=== PATIENT | female | born 1940 | race Caucasian/White ===

== ENCOUNTER 2020-07-01 07:37 | Outpatient (REF) | payer MEDICARE, SELFPAY ==
[2020-07-01 08:20] LABS: Hematocrit 39.2 % (37-47); Hemoglobin 12.6 g/dl (12.0-16.0); Mean Corpuscular HGB Conc 32.1 g/dl (31.0-35.0); Mean Corpuscular Hemoglobin 29.2 pg (27.0-33.0); Mean Corpuscular Volume 90.7 fL (80-98); Mean Platelet Volume 11.9 fL (9.4-12.3); Platelet Count 161 X10*3/uL (160-400); Red Blood Count 4.32 X10*6/uL (4.20-5.50); Red Cell Distribution Width 13.3 % (11.0-16.0); White Blood Count 8.1 X10*3/uL (4.8-10.8)
[2020-07-01 08:42] LABS: Alanine Aminotransferase 27 U/L (0-31); Albumin Level 4.1 g/dL (3.5-5.0); Alkaline Phosphatase 50 U/L (39-117); Anion Gap 10 (12-20); Aspartate Amino Transferase 31 U/L (5-31); Bilirubin Total 0.7 mg/dL (0.0-1.0); Blood Urea Nitrogen 11 mg/dL (9-16); Calcium 9.5 mg/dL (8.4-10.2); Carbon Dioxide 29 mmol/L (22-29); Chloride 102 mmol/L (96-108); Cholesterol 156 mg/dL; Estimated Glomerular Filt Rate > 60; Glucose Fasting 105 mg/dL (60-99); HDL Cholesterol 71 mg/dL; LDL Cholesterol Calculated 73 mg/dl; Potassium 4.4 mmol/L (3.3-5.1); Sodium 137 mmol/L (135-145); Total Protein 6.9 g/dL (6.5-8.0); Triglycerides 60 mg/dL
[2020-07-01 09:07] LABS: Vitamin D 25-OH Total 63.6 ng/mL (>30)
== END 2020-07-01 07:38 | disposition home or self-care (01) ==
LOC: HO.LAB 07:37
PROVIDERS: PCP Internal Medicine; Visit Provider Internal Medicine
DX: Z00.00 Encounter for general adult medical examination without abnormal findings (principal); M81.0 Age-related osteoporosis without current pathological fracture; I10 Essential (primary) hypertension; E78.00 Pure hypercholesterolemia, unspecified
CPT/HCPCS: 36415; 80053; 80061; 82306; 85027

== ENCOUNTER 2020-08-12 12:41 | Emergency (ER) | payer MEDICARE, SELFPAY ==
--- NOTE | ~2020-08-12 | XR_ITS ---
EXAMINATION: XR CHEST CLINICAL INFORMATION: Palpitations, chest pressure COMPARISON: Radiographs right shoulder 07/18/2019 TECHNIQUE: Portable upright AP view of the chest was obtained. FINDINGS: The lungs are clear. There is no pneumothorax, airspace consolidation, or effusion. The vascularity is normal. The heart is normal in size. The hilar and mediastinal contours are unremarkable. There is no acute bony abnormality. Old posttraumatic changes again seen right shoulder. XR/XR chest 1V IMPRESSION: No acute intrathoracic disease.
[2020-08-12 12:46] VITALS: BP 187/73; PULSE 80; RESP 18; TEMP 36.5; O2SAT 97; BMI 23.1
--- NOTE | 2020-08-12 12:49 | ECG_ITS ---
Test Reason : IRREG HEART RATE Blood Pressure : / mmHG Vent. Rate : 070 BPM Atrial Rate : 070 BPM P-R Int : 160 ms QRS Dur : 096 ms QT Int : 406 ms P-R-T Axes : 076 049 075 degrees QTc Int : 438 ms Normal sinus rhythm Left ventricular hypertrophy with repolarization abnormality Cannot rule out Septal infarct , age undetermined Abnormal ECG No previous ECGs available Referred By: Generic ED Physician Electronically Signed By:RODY CENTENO MD
[2020-08-12 15:02] VITALS: BP 152/72; PULSE 66; RESP 16; O2SAT 98
[2020-08-12 15:13] VITALS: BP 147/64; BP 152/71; BP 155/70; PULSE 65; PULSE 66; PULSE 68
[2020-08-12 15:15] LABS: MANUAL DIFF FLAG NO
[2020-08-12 15:16] LABS: Basophils Absolute Auto 0.1 X10*3/uL (0.0-0.2); Basophils Percent Auto 0.5 % (0-2); Eosinophils Absolute Auto 0.2 X10*3/uL (0.0-0.4); Eosinophils Percent Auto 2.1 % (0-4); Hematocrit 41.5 % (37-47); Hemoglobin 13.1 g/dl (12.0-16.0); Imm Gran Abs Auto 0.04 X10*3/uL (0.00-0.03); Imm Gran Pct Auto 0.4 % (0.0-0.4); Lymphocytes Absolute Auto 1.4 X10*3/uL (1.2-4.9); Lymphocytes Percent Auto 13.8 % (20-40); Mean Corpuscular HGB Conc 31.6 g/dl (31.0-35.0); Mean Corpuscular Hemoglobin 29.6 pg (27.0-33.0); Mean Corpuscular Volume 93.7 fL (80-98); Mean Platelet Volume 11.8 fL (9.4-12.3); Monocytes Absolute Auto 0.8 X10*3/uL (0.1-1.2); Monocytes Percent Auto 7.4 % (2-11); Neutrophils Absolute Auto 7.9 X10*3/uL (2.0-8.3); Neutrophils Percent Auto 75.8 % (45-73); Platelet Count 162 X10*3/uL (160-400); Red Blood Count 4.43 X10*6/uL (4.20-5.50); Red Cell Distribution Width 13.2 % (11.0-16.0); White Blood Count 10.5 X10*3/uL (4.8-10.8)
--- NOTE | 2020-08-12 15:18 | ED_ITS ---
HPI - Arrhythmia/Palpitations General Chief Complaint: Arrhythmia/Palpitations Stated Complaint: palpitations Time Seen by Provider: 08/12/20 14:20 Source: patient Mode of arrival: ambulatory History of Present Illness HPI narrative: 80-year-old female with a past medical history of asthma, HTN, HLD, osteoporosis, presenting to the ED complaining of intermittent palpitations, chest tightness, and exertional SOB x1 week. Reports symptoms worse on exertion with mild associated lightheadedness. Denies fever, chills, cough, abdominal pain, nausea/vomiting, LE edema complaint: rapid heart beat and palpitations Related Data Previous Rx's Medication Instructions Recorded fluticasone 250 mcg-salmeterol 50 1 inh INHALATION BID #60 ea 03/01/20 mcg/dose blistr powdr for inhalation hydrochlorothiazide 12.5 mg tablet 12.5 mg PO DAILY #90 tab 03/01/20 atorvastatin 20 mg tablet 20 mg PO DAILY #90 tab 04/30/20 denosumab 60 mg/mL subcutaneous 60 mg SUBCUT [id number] #1 ml 07/02/20 syringe triamcinolone acetonide 0.1 % 1 appl TOPICAL BID #80 g 07/02/20 topical cream Allergies Allergy/AdvReac Type Severity Reaction Status Date / Time cat dander [CATS] Allergy Severe DIFFICULTY Unverified 01/04/20 15:15 BREATHING dogs and cats Allergy Unknown Uncoded 07/21/19 00:00 dogs, cats Allergy Unknown Uncoded 09/21/19 00:00 gluten Allergy Unknown Uncoded 09/21/19 00:00 Review of Systems Review of Systems: Constitutional: No Fever, No Chills Cardiovascular: +chest tightness Pain, No SOB, + Dyspnea on Exertion, No Orthopnea, No Edema, + Palpitations Respiratory: No Cough, No Sputum Gastrointestinal: No Nausea, No Vomiting, No Diarrhea, No Abdominal pain Genitourinary: No Dysuria, No Urinary Frequency, No Hematuria Musculoskeletal: No joint pain, No Myalgias, No Joint Swelling Skin: No Skin Lesions, No rash Neuro: No Weakness, No Numbness, No Paresthesias, + Lightheadedness, No Headache Yes all other systems are reviewed and are negative [facility] Past Medical History Attestation statement: The following information was validated with the patient. Medical History (Updated 08/12/20 @ 16:12 by FABRICIO Mariano) Annual physical exam Asthma Celiac sprue HTN (hypertension) Hyperlipidemia Osteoporosis Prolapse of female pelvic organs Surgical History H/O colonoscopy Family History Family History (Updated 07/02/20 @ 10:13 by Anni Martinez CMA) Father CVD (cardiovascular disease) Mother Cancer Social History Social History (Updated 07/02/20 @ 10:12 by Anni Martinez CMA) Alcohol intake: current Alcohol intake frequency: holidays/special occasions only Smoking Status: Former smoker Advance Directives: No Advance Directives Information Provided: Yes Physical Exam Vital Signs: Vital Signs: Last Vital Signs Temp 97.7 F 08/12/20 12:46 Pulse 68 08/12/20 15:13 Resp 16 08/12/20 15:02 BP 155/70 H 08/12/20 15:13 Pulse Ox 98 08/12/20 15:02 Body Mass Index 23.1 Const: General: cooperative, healthy appearing, comfortable, no acute distress and well developed Orientation/consciousness: patient oriented x3 Limitations: no limitations HENMT: Head: Yes normal to inspection Ears: hearing grossly normal bilaterally General nose exam: Normal external nose present Face and sinus: Yes normal facial exam Eyes: General: appearance normal, both eyes and all related structures EOM: EOMs intact bilaterally Neck: Neck: Yes normal visual inspection and Yes no meningeal signs Resp: Effort & Inspection: normal respiratory effort Auscultation: clear to auscultation bilaterally, no rales, no rhonchi and no wheezes Cardio: Rate: regular rate Rhythm: regular rhythm Heart sounds: S1 normal heart sound present and S2 normal heart sound present GI: Inspection: Yes normal to inspection Palpation (GI): Soft to palpation, nontender, no guarding and not rigid Skin: Rashes: no rashes Wounds: no wounds Neuro: General: patient oriented x3 and no meningeal signs Gait exam (Neuro): Normal gait present Extrem: General: Yes normal to inspection, Yes no pedal edema and Yes no calf tenderness Course Course Course Narrative: -labs unremarkable, troponin negative, D-dimer negative XR chest 1V IMPRESSION: No acute intrathoracic disease. -1610--TSH and BNP WNL. Results discussed with patient including worrisome signs and symptoms and strict return precautions. Patient is to follow up with Cardiology for likely Holter monitor. She verbalized understanding and feels safe for discharge home MDM - Arrhythmia/Palpitations MDM Narrative Medical decision making narrative: 80-year-old female with a past medical history of asthma, HTN, HLD, osteoporosis, presenting to the ED complaining of intermittent palpitations, chest tightness, and exertional SOB x1 week. On exam VSS, NAD/well-appearing. Asymptomatic at present. Concern for arrhythmia vs metabolic abnormalities. Unlikely ACS or PE (only RF is age > cannot PERC out > will obtain d-dimer) Plan: EKG, labs, CXR, reassess Medical Records Attestation: I reviewed the patient's medical records. Lab Data Attestation: I reviewed the patient's lab results. Result diagrams: 08/12/20 15:09 08/12/20 15:09 Labs: Lab Results 08/12/20 08/12/20 08/12/20 Range/Units 15:09 15:09 15:09 WBC 10.5 (4.8-10.8) X10*3/uL RBC 4.43 (4.20-5.50) X10*6/uL Hgb 13.1 (12.0-16.0) g/dl Hct 41.5 (37-47) % MCV 93.7 (80-98) fL MCH 29.6 (27.0-33.0) pg MCHC 31.6 (31.0-35.0) g/dl RDW 13.2 (11.0-16.0) % Plt Count 162 (160-400) X10*3/uL MPV 11.8 (9.4-12.3) fL Immature Gran % (Auto) 0.4 (0.0-0.4) % Neut % (Auto) 75.8 H (45-73) % Lymph % (Auto) 13.8 L (20-40) % Rapides % (Auto) 7.4 (2-11) % Eos % (Auto) 2.1 (0-4) % Baso % (Auto) 0.5 (0-2) % Lymph # (Auto) 1.4 (1.2-4.9) X10*3/uL Rapides # (Auto) 0.8 (0.1-1.2) X10*3/uL Eos # (Auto) 0.2 (0.0-0.4) X10*3/uL Baso # (Auto) 0.1 (0.0-0.2) X10*3/uL Abs Immat Gran (auto) 0.04 H (0.00-0.03) X10*3/uL Absolute Neuts (auto) 7.9 (2.0-8.3) X10*3/uL Absolute Nucleated RBC 0.000 (0.0-0.012) X10*3/uL Nucleated RBC % (auto) 0.0 (0.0-0.2) /100WBC PT 12.4 (10.8-13.0) SEC INR 1.0 (0.9-1.1) APTT 33.8 (24.1-38.0) SEC D-Dimer < 200 NG/ML Sodium 137 (135-145) mmol/L Potassium 4.3 (3.3-5.1) mmol/L Chloride 102 (96-108) mmol/L Carbon Dioxide 27 (22-29) mmol/L Anion Gap 12 (12-20) BUN 16 (9-16) mg/dL Creatinine 0.64 (0.5-1.4) mg/dL Estim Creat Clear Calc 61.5 Estimated GFR > 60 Random Glucose 95 (60-115) mg/dL Calcium 9.3 (8.4-10.2) mg/dL Magnesium 2.0 (1.6-2.6) mg/dL Total Bilirubin 0.4 (0.0-1.0) mg/dL Direct Bilirubin 0.2 (0.0-0.5) mg/dL AST 24 (5-31) U/L ALT 16 (0-31) U/L Alkaline Phosphatase 50 (39-117) U/L Troponin I High Sens (<3.5-17.0) ng/L B-Natriuretic Peptide (<100) pg/mL Total Protein 6.9 (6.5-8.0) g/dL Albumin 4.0 (3.5-5.0) g/dL TSH 0.73 (0.32-4.0) uIU/mL 08/12/20 08/12/20 Range/Units 15:09 15:09 WBC (4.8-10.8) X10*3/uL RBC (4.20-5.50) X10*6/uL Hgb (12.0-16.0) g/dl Hct (37-47) % MCV (80-98) fL MCH (27.0-33.0) pg MCHC (31.0-35.0) g/dl RDW (11.0-16.0) % Plt Count (160-400) X10*3/uL MPV (9.4-12.3) fL Immature Gran % (Auto) (0.0-0.4) % Neut % (Auto) (45-73) % Lymph % (Auto) (20-40) % Rapides % (Auto) (2-11) % Eos % (Auto) (0-4) % Baso % (Auto) (0-2) % Lymph # (Auto) (1.2-4.9) X10*3/uL Rapides # (Auto) (0.1-1.2) X10*3/uL Eos # (Auto) (0.0-0.4) X10*3/uL Baso # (Auto) (0.0-0.2) X10*3/uL Abs Immat Gran (auto) (0.00-0.03) X10*3/uL Absolute Neuts (auto) (2.0-8.3) X10*3/uL Absolute Nucleated RBC (0.0-0.012) X10*3/uL Nucleated RBC % (auto) (0.0-0.2) /100WBC PT (10.8-13.0) SEC INR (0.9-1.1) APTT (24.1-38.0) SEC D-Dimer NG/ML Sodium (135-145) mmol/L Potassium (3.3-5.1) mmol/L Chloride (96-108) mmol/L Carbon Dioxide (22-29) mmol/L Anion Gap (12-20) BUN (9-16) mg/dL Creatinine (0.5-1.4) mg/dL Estim Creat Clear Calc Estimated GFR Random Glucose (60-115) mg/dL Calcium (8.4-10.2) mg/dL Magnesium (1.6-2.6) mg/dL Total Bilirubin (0.0-1.0) mg/dL Direct Bilirubin (0.0-0.5) mg/dL AST (5-31) U/L ALT (0-31) U/L Alkaline Phosphatase (39-117) U/L Troponin I High Sens < 3.5 (<3.5-17.0) ng/L B-Natriuretic Peptide 81 (<100) pg/mL Total Protein (6.5-8.0) g/dL Albumin (3.5-5.0) g/dL TSH (0.32-4.0) uIU/mL ECG Data Attestation: I personally reviewed and interpreted this ECG as follows: ECG interpretation date: 08/12/20 ECG interpretation time: 13:15 Interpretation: EKG normal sinus rhythm with a rate of 70. Nonischemic/no STEMI. LVH Discharge Plan Discharge Clinical Impression: Heart palpitations Patient Disposition: Home, Self-Care Instructions: Heart Palpitations (ED) Additional Instructions: Your blood work was reassuring today in the ED Her x-ray was unremarkable It is important for you to follow-up with a advertising operations coordinator If her symptoms persist or worsening, more constant, unbearable, if constant worsening chest pain/shortness of breath, or fever return to the ED Prescriptions: No Action fluticasone propion-salmeterol [Advair Diskus] 250-50 mcg/dose blister with device 1 inh inhalation BID Qty: 60 RF: 6 hydrochlorothiazide 12.5 mg tablet 12.5 mg PO DAILY Qty: 90 RF: 2 atorvastatin 20 mg tablet 20 mg PO DAILY Qty: 90 RF: 3 triamcinolone acetonide 0.1 % cream 1 appl topical BID Qty: 80 RF: 3 Prolia 60 mg/mL syringe 60 mg subcut [id number] Qty: 1 RF: 1 Referrals: Ton Bro MD [Physician] - 2 days
[2020-08-12 15:27] LABS: Prothrombin Time 12.4 SEC (10.8-13.0)
[2020-08-12 15:30] LABS: Partial Thromboplastin Time 33.8 SEC (24.1-38.0)
[2020-08-12 15:40] LABS: Alanine Aminotransferase 16 U/L (0-31); Alkaline Phosphatase 50 U/L (39-117); Anion Gap 12 (12-20); Aspartate Amino Transferase 24 U/L (5-31); Bilirubin Direct 0.2 mg/dL (0.0-0.5); Bilirubin Total 0.4 mg/dL (0.0-1.0); Blood Urea Nitrogen 16 mg/dL (9-16); Calcium 9.3 mg/dL (8.4-10.2); Carbon Dioxide 27 mmol/L (22-29); Chloride 102 mmol/L (96-108); Creatinine Clr Calc Pharmacy 61.5; Estimated Glomerular Filt Rate > 60; Glucose Random 95 mg/dL (60-115); Potassium 4.3 mmol/L (3.3-5.1); Sodium 137 mmol/L (135-145); Total Protein 6.9 g/dL (6.5-8.0)
[2020-08-12 15:42] LABS: Troponin-I High Sensitivity < 3.5 ng/L (<3.5-17.0)
[2020-08-12 15:48] LABS: D Dimer < 200 NG/ML
[2020-08-12 16:01] LABS: TSH reflex Free T4 0.73 uIU/mL (0.32-4.0)
[2020-08-12 16:08] LABS: B Type Natriuretic Peptide 81 pg/mL (<100)
== END 2020-08-12 16:18 | disposition home or self-care (01) ==
PROVIDERS: Physician Assistant; Emergency Provider Emergency Medicine; PCP Internal Medicine
DX: R00.2 Palpitations (principal); R06.02 Shortness of breath; I10 Essential (primary) hypertension; R42 Dizziness and giddiness; Z87.891 Personal history of nicotine dependence; Z79.899 Other long term (current) drug therapy
CPT/HCPCS: 36415; 71045; 80048; 80076; 83735; 83880; 84443; 84484; 85025; 85379; 85610; 85730; 93005; 99284

== ENCOUNTER → 2020-08-22 10:47 | Outpatient (BNVA) | payer MEDICARE, SELFPAY | PROVIDERS: PCP Internal Medicine; Visit Provider Nurse Practitioner Family | DX: R06.02 Shortness of breath (principal); R00.2 Palpitations; I10 Essential (primary) hypertension | CPT/HCPCS: 99202 ==

== ENCOUNTER → 2020-08-30 11:14 | Outpatient (REF) | payer MEDICARE, SELFPAY ==
--- NOTE | 2020-08-30 11:25 | CA_ITS ---
Transthoracic Echocardiogram Patient (Last, First, Middle): Kailey Neil M Gender: Female Date of : 1940 Age: 80 Procedure Date: 08/30/2020 Procedure Type: Transthoracic Echocardiogram Location: OP Height: 162.56 cm Weight: 61.24 kg BSA: 1.66 m2 Heart Rate: bpm BP: 130 / 70 mmHg Brainer: SHORTY Referring MD: Elaine Ruvalcaba REPATCHERWillam Symptoms: R06.02 - Shortness of breath Conclusions: - Normal left ventricular size, thickness, and systolic function. - E/E prime ratio is >15, consistent with elevated filling pressures. - Normal right ventricular cavity size and systolic function. - There is severe mitral annular calcification. There is mild posterior mitral leaflet prolapse. There is moderate to severe mitral valve regurgitation. There is no mitral valve stenosis. Findings Left Ventricle Normal left ventricular size, thickness, and systolic function. The visually estimated ejection fraction is between 60-65%. There is no evidence of regional wall motion abnormalities. Abnormal diastolic function is noted. Spectral Doppler is indicative of a pseudonormal filling pattern. E/E prime ratio is >15, consistent with elevated filling pressures. Right Ventricle Normal right ventricular cavity size and systolic function. Atria The left atrium is mildly dilated. Aortic Valve There is mild calcification of the aortic valve. There is mild thickening of the aortic valve. There is no aortic valve stenosis. There is mild aortic valve regurgitation. Mitral Valve There is severe mitral annular calcification. There is mild posterior mitral leaflet prolapse. There is moderate to severe mitral valve regurgitation. There is no mitral valve stenosis. Pulmonic Valve Normal pulmonic valve structure and function. There is trace pulmonic valve regurgitation. Tricuspid Valve Normal tricuspid valve structure and function. There is trace tricuspid valve regurgitation. Normal right atrial pressure. There is no evidence of pulmonary hypertension. Great Vessels All visible segments of the aorta are normal in size. Small plaque is seen in the sinuses of Valsalva. The visualized portions of the pulmonary artery and branches are normal. Venous The inferior vena cava is normal in size and collapses greater than 50% with inspiration. Pericardium/Pleural There is no evidence of pericardial effusion. Prior Study Comparison Changes noted compared to prior study dated: 07/28/2013. Elevated filling pressures. Severe MAC. Mild posterior mitral leaflet prolapse. Moderate to severe MR. Measurements 2D Linear Measurements RVIDd: 2.53 RVIDd Index: 1.52 IVSd: 0.78 0.6-0.9/0.6-1.0 cm LVIDd: 4.61 3.9-5.3/4.2-5.9 cm LVIDd Index: 2.78 2.4-3.2/2.2-3.1 cm/m2 LVIDs: 3.27 2.0-3.6 cm LVPWd: 0.97 0.7-1.1 cm Ao Root: 2.50 2.1-3.5 cm LA Diam: 3.70 2.7-3.8/3.0-4.0 cm LAIDs Index: 2.23 1.5-2.3 cm/m2 LV Mass: 165.03 67-162/88-224 g LV Mass Index: 99.41 43-95/49-115 g/m2 LVOT Diam: 2.00 3.0+(-)1.3 cm 2D Systolic Function EF 4C: 69.30 >55% EF 2C: 76.60 >55% EF BiP: 73.00 >55% Mitral Valve MV Pk E: 1.09 MV PK A: 0.95 MV Decel Time: 211.00 E/A: 1.10 E'Lateral: 7.25 E'Medial: 6.67 E/E' Med: 16.30 E/E' Lat: 15.00 MR Vol - PW Dopp: 48.50 MR VTI: 1.94 MR ERO: 25.00 MR Alias Celestine: 0.38 MR RAD: 0.80 Aortic Valve AoV Pk Celestine: 1.69 AoV Mn Celestine: 1.13 AoV VTI: 0.36 AoV Pk Grad: 11.00 Aov Mn Grad: 6.00 DONNA Cont.VTI: 2.13 AI Pk Celestine: 4.02 AI [place]: 2.06 LVOT LVOT Pk Celestine: 1.13 LVOT Mn Celestine: 0.69 LVOT VTI: 0.25 LVOT Pk Grad: 5.00 LVOT Mn Grad: 2.00 LVOT Diam: 2.00 LVOT Area: 3.14 Diastolic Function MV Pk E: 1.09 MV Pk A: 0.95 E/A: 1.10 E'Medial: 6.67 E/E' Med: 16.30 E' Laterial: 7.25 E/E' Lat: 15.00 Tricuspid Valve TR Pk Celestine: 2.32 TR Pk Grad: 22.00 RA Press: 3.00 RVSP: 25.00 Great Vessels Aorta Ao Root-2D: 2.50 2.0-3.7 cm Ao Asc: 3.20 2.1-3.4 cm Ao Arch: 2.50 Updated in Other Vendor System with Status of Final Yoav De La Rosa MD electronically signed on 08/31/2020 9:07:14 PM with status of Final
== END ==
LOC: HO.CARD 11:14
PROVIDERS: PCP Internal Medicine; Visit Provider Nurse Practitioner Family
DX: R06.02 Shortness of breath (principal)
CPT/HCPCS: 93306

== ENCOUNTER → 2020-09-04 09:06 | Outpatient (BNVA) | payer MEDICARE, SELFPAY | PROVIDERS: PCP Internal Medicine; Referring Provider Internal Medicine; Visit Provider Internal Medicine | DX: I34.0 Nonrheumatic mitral (valve) insufficiency (principal); I10 Essential (primary) hypertension | CPT/HCPCS: 99212 ==

== ENCOUNTER → 2020-09-05 14:53 | Outpatient (REF) | payer MEDICARE, SELFPAY ==
--- NOTE | 2020-09-05 08:30 | ECG_ITS ---
Hook-up date: 2020-09-05 15:05:00 Duration: 24:14:00 Test Indications: PALPITATIONS Medications: 20664 QRS complexes 220 Ventricular ectopics which represent <1 % of total QRS comp. 31 Supraventricular ectopics which represent <1 % of total QRS comp. * Paced QRS complexs which represent % of total QRS comp. VENTRICULAR ECTOPY 220 Isolated 0 Bigeminal Cycles 0 Couplets 0 Runs 0 Beats in Runs * Beats LONGEST at * BPM at :: -- * Beats FASTEST at * BPM at :: -- SUPRAVENTRICULAR ECTOPY 28 Isolated 0 Couplets 1 Runs 3 Beats in Runs 3 Beats LONGEST at 119 BPM at 02:31:27 2020-09-06 3 Beats FASTEST at 119 BPM at 02:31:27 2020-09-06 HEART RATES 47 MIN at 04:10:44 2020-09-06 67 AVG 123 MAX at 10:40:20 2020-09-06 LONGEST RR 1.5600 secs at 04:29:22 2020-09-06 S-T LEVELS Channel 1 - 128 mm at 15:05:00 2020-09-05 - 128 mm at 15:05:00 2020-09-05 Channel 2 - 128 mm at 15:05:00 2020-09-05 - 128 mm at 15:05:00 2020-09-05 Channel 3 - 128 mm at 03:42:41 -- - 128 mm at 03:42:41 Basic rhythm Normal sinus rhythm No long pause or profound bradycardia Occasional Premature ventricular complexes No diary submitted Referred By: Elaine Ruvalcaba Overread By: RODY CENTENO MD
== END ==
LOC: HO.CARD 14:53
PROVIDERS: PCP Internal Medicine; Visit Provider Nurse Practitioner Family
DX: R00.2 Palpitations (principal)
CPT/HCPCS: 93226

== ENCOUNTER 2020-09-13 11:37 | Day surgery (SDC) | payer MEDICARE, SELFPAY ==
--- NOTE | 2020-09-11 11:16 | HO.ANESPROP2 ---
Documented by User: Antonietta Xiao 09/18/20 10:37 HPI - Anesthesia Eval Consult details Narrative: 80yo F for Transesophageal Echocardiogram PMFSH Active Problems Active Problems: All Active Problems (Updated 09/04/20 @ 09:28 by Cesario Galeana MD) Non-rheumatic mitral regurgitation (Acute) Essential hypertension (Acute) HTN (hypertension) (Acute) Palpitation (Acute) Shortness of breath (Acute) Hyperlipidemia (Acute) Annual physical exam (Acute) Past Medical History Medical History Annual physical exam Asthma Celiac sprue HTN (hypertension) Hyperlipidemia Osteoporosis Prolapse of female pelvic organs Family History Family History Father CVD (cardiovascular disease) Mother Cancer Surgical History Surgical History H/O colonoscopy Hx of cataract extraction Social History Social History Alcohol intake: current Alcohol intake frequency: holidays/special occasions only Patient Tobacco Use Status: Former Tobacco user Quit Date: >50 yr ago Use of substances other than those prescribed or required for medical reasons: No Are you DNR?: No Advance Directives: No Advance Directives Information Provided: Yes Meds Allergies Allergy/AdvReac Type Severity Reaction Status Date / Time cat dander [CATS] Allergy Severe DIFFICULTY Verified 09/13/20 11:46 BREATHING gluten Allergy Severe unk Uncoded 09/04/20 09:12 Home Medications Medication Instructions Recorded Confirmed Last Taken Type cholecalciferol (vitamin D3) 10 10 mcg PO DAILY 08/22/20 09/04/20 Unknown History mcg (400 unit) capsule Exam Exam Date and Time: September 11, 2020 1116 Pertinent Lab Results Pertinent Lab Results: Laboratory Tests 08/12/20 08/12/20 15:09 15:09 WBC 10.5 Hgb 13.1 Hct 41.5 Plt Count 162 Sodium 137 Potassium 4.3 Chloride 102 Carbon Dioxide 27 BUN 16 Creatinine 0.64 Narrative Narrative: EKG 07/2020 Vent. Rate : 070 BPM Atrial Rate : 070 BPM P-R Int : 160 ms QRS Dur : 096 ms QT Int : 406 ms P-R-T Axes : 076 049 075 degrees QTc Int : 438 ms Normal sinus rhythm Left ventricular hypertrophy with repolarization abnormality Cannot rule out Septal infarct , age undetermined Abnormal ECG No previous ECGs available ECHO 08/2020 Conclusions: - Normal left ventricular size, thickness, and systolic function. - E/E prime ratio is >15, consistent with elevated filling pressures. - Normal right ventricular cavity size and systolic function. - There is severe mitral annular calcification. There is mild posterior mitral leaflet prolapse. There is moderate to severe mitral valve regurgitation. There is no mitral valve stenosis. Assessment and Plan Assessment Anesthesia Assessment: Chart Reviewed Documented by User: Diana Pettit 09/13/20 12:20 PMFSH Past Medical History Medical History Annual physical exam Asthma Celiac sprue HTN (hypertension) Hyperlipidemia Osteoporosis Prolapse of female pelvic organs Family History Family History Father CVD (cardiovascular disease) Mother Cancer Surgical History Surgical History H/O colonoscopy Hx of cataract extraction Social History Social History Alcohol intake: current Alcohol intake frequency: holidays/special occasions only Patient Tobacco Use Status: Former Tobacco user Quit Date: >50 yr ago Use of substances other than those prescribed or required for medical reasons: No Are you DNR?: No Advance Directives: No Advance Directives Information Provided: Yes Meds Allergies Allergy/AdvReac Type Severity Reaction Status Date / Time cat dander [CATS] Allergy Severe DIFFICULTY Verified 09/13/20 11:46 BREATHING gluten Allergy Severe unk Uncoded 09/04/20 09:12 Home Medications Medication Instructions Recorded Confirmed Last Taken Type cholecalciferol (vitamin D3) 10 10 mcg PO DAILY 08/22/20 09/04/20 Unknown History mcg (400 unit) capsule
[2020-09-13 06:17] VITALS: BMI 22.6
--- NOTE | 2020-09-13 11:43 | CA_ITS ---
Transesophageal Echocardiogram Patient (Last, First, Middle): Kailey Neil M Gender: Female Date of : 1940 Age: 80 Procedure Date: 09/13/2020 Procedure Type: Transesophageal Echocardiogram Location: [facility] Height: 162.56 cm Weight: 59.88 kg BSA: 1.64 m2 Heart Rate: bpm Pole Classifier: SHAYAN Referring MD: Cesario Galeana MD Symptoms: I34.0 - Nonrheumatic mitral (valve) insufficiency Conclusion: ??? The left ventricular systolic function is normal. The visually estimated ejection fraction is between 60-65%. ??? There is moderate posterior mitral leaflet prolapse involving multiple scallops. There is moderate mitral valve regurgitation. Likely P2/P3 involvement. Findings Procedure Information The quality of the study was good. Consent was obtained prior to the procedure. The adult 3D probe was passed with no difficulty. Normal sinus rhythm noted at rest. Left Ventricle Normal left ventricular cavity size. The left ventricular systolic function is normal. The visually estimated ejection fraction is between 60-65%. There is no evidence of regional wall motion abnormalities. Right Ventricle Normal right ventricular cavity size and systolic function. Atria There is no evidence of a thrombus in the left atrial appendage. There is no evidence of interatrial shunt. Aortic Valve There is a normal trileaflet aortic valve. There is no aortic valve stenosis. There is trace (trivial) aortic valve regurgitation. Mitral Valve There is moderate posterior mitral annular calcification. There is moderate posterior mitral leaflet prolapse involving multiple scallops. There is moderate mitral valve regurgitation. The mitral regurgitation jet is directed anteriorly. The mitral regurgitant volume is 47.79 ml. The effective regurgitant orifice is 0.27 cm2. There is no mitral valve stenosis. Likely P2/P3 involvement. 3D images acquired. Pulmonic Valve The pulmonic valve was not well visualized. Tricuspid Valve Normal tricuspid valve structure. There is no tricuspid valve regurgitation. Great Vessels The asc aorta is normal in size. Minimal plaque in descending thoracic aorta. Pericardium/Pleural There is no evidence of pericardial effusion. Prior Study Comparison No significant change compared to prior study dated: 08/30/2020. Measurements Mitral Valve MR Vol - PW Dopp: 47.79 MR VTI: 1.77 MR ERO: 0.27 MR Alias Celestine: 0.37 MR RAD: 0.80 Great Vessels Aorta Ao Asc: 3.50 2.1-3.4 cm Updated by Cesario Galeana on 12:40 PM with Status of Final Cesario Galeana MD electronically signed on 09/16/2020 12:40:35 PM with status of Final
[2020-09-13 11:57] VITALS: BP 141/55; RESP 16; TEMP 36.2; O2SAT 95; BMI 23.1
[2020-09-13] MEDS: Lactated Ringers 1,000 ML 50 ML IV (12:26)
--- NOTE | 2020-09-13 12:58 | MHC.SHP ---
Pre-Procedural Eval Section B Chief Complaint: valve insufficiency Allergies: Allergies Allergy/AdvReac Type Severity Reaction Status Date / Time cat dander [CATS] Allergy Severe DIFFICULTY Verified 09/13/20 11:46 BREATHING gluten Allergy Severe unk Uncoded 09/04/20 09:12 Plan I have reviewed the history and physical and performed a pertinent physical examination on my patient. No changes have occurred unless specified.
[2020-09-13 13:49] VITALS: BP 121/48; PULSE 81; RESP 16; TEMP 37.1; O2SAT 96
[2020-09-13 14:04] VITALS: BP 136/61; PULSE 57; RESP 18; TEMP 37.1; O2SAT 98
== END 2020-09-13 14:30 | disposition home or self-care (01) ==
PROVIDERS: PCP Internal Medicine; Visit Provider Internal Medicine
PROC: (CPT 93312; principal; 2020-09-13 13:00)
DX: I34.0 Nonrheumatic mitral (valve) insufficiency (principal); I10 Essential (primary) hypertension; E78.5 Hyperlipidemia, unspecified; J45.909 Unspecified asthma, uncomplicated; Z87.891 Personal history of nicotine dependence; Z79.51 Long term (current) use of inhaled steroids; Z79.899 Other long term (current) drug therapy
CPT/HCPCS: 93312; J3010

== ENCOUNTER → 2020-10-07 12:34 | Outpatient (BNVA) | payer MEDICARE, SELFPAY | PROVIDERS: PCP Internal Medicine; Referring Provider Internal Medicine; Visit Provider Internal Medicine | DX: I34.0 Nonrheumatic mitral (valve) insufficiency (principal); I10 Essential (primary) hypertension; Z79.899 Other long term (current) drug therapy; Z87.891 Personal history of nicotine dependence | CPT/HCPCS: 99212 ==

== ENCOUNTER 2020-11-18 12:34 | Outpatient (REF) | payer MEDICARE, SELFPAY | END 2020-11-18 12:35 | disposition home or self-care (01) | LOC: HO.LAB 12:34 | PROVIDERS: PCP Internal Medicine; Visit Provider Ophthalmology | DX: Z13.89 Encounter for screening for other disorder (principal) ==

== ENCOUNTER 2021-01-22 08:02 | Outpatient (REF) | payer MEDICARE, SELFPAY ==
--- NOTE | ~2021-01-22 | MR_ITS ---
EXAMINATION: MR BRAIN WITHOUT CONTRAST CLINICAL INFORMATION: Diplopia. COMPARISON: None available. TECHNIQUE: MRI of the brain was obtained using routine sequences without contrast. FINDINGS: No focal restricted diffusion is demonstrated to suggest acute or subacute cerebral ischemia. No evidence of acute or chronic hemorrhagic products on heme-sensitive imaging. There is a 0.5 cm focus of peripheral T2 hypointensity with slight central hyperintensity and susceptibility artifact within the lateral aspect of the right temporoparietal junction, potentially representing a small cavernoma. Scattered periventricular and deep white matter T2 FLAIR hyperintensities consistent with mild underlying microangiopathy. Proportional prominence of the ventricles and sulcal spaces without evidence of obstructive hydrocephalus. No abnormal mass effect. No midline shift. Normal appearance of the pituitary gland. The suprasellar cistern remains widely patent. Normal positioning of the cerebellar tonsils. Normal arterial and venous vascular flow voids are present. Normal, homogeneous marrow signal. Moderate mucosal thickening of the paranasal sinuses. No signal abnormalities within the mastoids. Bilateral lens extractions. No additional demonstrated abnormalities of the orbits on limited evaluation. MR/MR head/brain wo con IMPRESSION: 1. No acute intracranial abnormalities. 2. 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 3. Small focus of susceptibility artifact in the lateral aspect of the right temporoparietal junction, potentially representing a small cavernoma.
== END 2021-01-22 08:03 | disposition home or self-care (01) ==
LOC: HO.MRI 08:02
PROVIDERS: PCP Internal Medicine; Visit Provider Psychiatry & Neurology Neurology
DX: H53.2 Diplopia (principal)
CPT/HCPCS: 70551

== ENCOUNTER 2021-01-22 08:42 | Outpatient (REF) | payer MEDICARE, SELFPAY ==
[2021-01-29 00:11] LABS: Acetylcholine Recept. Blocking <15 (<15)
[2021-01-30 18:37] LABS: Acetylcholine Recep Modulating 7
== END 2021-01-22 08:43 | disposition home or self-care (01) ==
LOC: HO.LAB 08:42
PROVIDERS: PCP Internal Medicine; Visit Provider Psychiatry & Neurology Neurology
DX: H53.2 Diplopia (principal)
CPT/HCPCS: 36415; 83519

== ENCOUNTER → 2021-03-19 13:55 | Outpatient (REF) | payer MEDICARE, SELFPAY ==
--- NOTE | 2021-03-19 13:58 | CA_ITS ---
Transthoracic Echocardiogram Patient (Last, First, Middle): Kailey Neil M Gender: Female Date of : 1940 Age: 80 Procedure Date: 03/19/2021 Procedure Type: Transthoracic Echocardiogram Location: OP Height: 162.56 cm Weight: 58.97 kg BSA: 1.63 m2 Heart Rate: bpm BP: 118 / 56 mmHg Environmental Programs Manager: Referring MD: Cesario Galeana MD Symptoms: I34.0 - Nonrheumatic mitral (valve) insufficiency Study Quality: Fair ECG Rhythm: Sinus Conclusions: - The left ventricular systolic function is normal. The visually estimated ejection fraction is between 60-65%. - The left atrium is moderately dilated. - There is moderate to severe mitral valve regurgitation. Findings Left Ventricle Normal left ventricular cavity size. There is normal left ventricular wall thickness. The left ventricular systolic function is normal. The visually estimated ejection fraction is between 60-65%. There is no evidence of regional wall motion abnormalities. Diastolic function is indeterminate on the basis of available data. Right Ventricle Normal right ventricular cavity size and systolic function. Atria The left atrium is moderately dilated. The right atrium is normal in size. Aortic Valve There is a normal trileaflet aortic valve. There is mild calcification of the aortic valve. There is no aortic valve stenosis. There is mild aortic valve regurgitation. Mitral Valve There is moderate mitral annular calcification. There is mild posterior mitral leaflet prolapse. There is moderate to severe mitral valve regurgitation. The mitral regurgitation jet is directed anteriorly. There is no mitral valve stenosis. Pulmonic Valve The pulmonic valve was not well visualized. Tricuspid Valve Normal tricuspid valve structure. There is trace tricuspid valve regurgitation. The pulmonary artery systolic pressure is normal. Great Vessels The asc aorta is normal in size. Small plaque is seen in the sino tubular ridge. Venous The inferior vena cava is normal in size and collapses greater than 50% with inspiration. Pericardium/Pleural There is no evidence of pericardial effusion. Prior Study Comparison No significant change compared to prior study dated: 09/13/2020. Measurements 2D Linear Measurements IVSd: 0.98 0.6-0.9/0.6-1.0 cm LVIDd: 5.17 3.9-5.3/4.2-5.9 cm LVIDd Index: 3.17 2.4-3.2/2.2-3.1 cm/m2 LVIDs: 3.61 2.0-3.6 cm LVPWd: 1.01 0.7-1.1 cm Ao Root: 2.50 2.1-3.5 cm LA Diam: 3.60 2.7-3.8/3.0-4.0 cm LAIDs Index: 2.21 1.5-2.3 cm/m2 LV Mass: 238.03 67-162/88-224 g LV Mass Index: 146.03 43-95/49-115 g/m2 LVOT Diam: 2.00 3.0+(-)1.3 cm Mitral Valve MV Pk E: 1.12 MV Decel Time: 177.00 E'Lateral: 7.94 E'Medial: 7.62 E/E' Med: 14.70 E/E' Lat: 14.10 PHT: 52.00 MVA PHT: 4.23 Decel Thayer: 6.35 MR VTI: 1.85 Aortic Valve AoV Pk Celestine: 1.50 AoV Mn Celestine: 0.99 AoV VTI: 0.36 AoV Pk Grad: 9.00 Aov Mn Grad: 5.00 DONNA Cont.VTI: 1.91 AI Pk Celestine: 4.29 AI Thayer: 2.85 LVOT LVOT Pk Celestine: 0.90 LVOT Mn Celestine: 0.59 LVOT VTI: 0.22 LVOT Pk Grad: 3.00 LVOT Mn Grad: 2.00 LVOT Diam: 2.00 LVOT Area: 3.14 Diastolic Function MV Pk E: 1.12 E'Medial: 7.62 E/E' Med: 14.70 E' Laterial: 7.94 E/E' Lat: 14.10 Right Ventricle TAPSE (mm): 24.00 TVS' Celestine: 12.00 Tricuspid Valve TR Pk Celestine: 2.24 TR Pk Grad: 20.00 Great Vessels Aorta Ao Root-2D: 2.50 2.0-3.7 cm Ao Asc: 3.40 2.1-3.4 cm Pulmonary Valve PV Pk Celestine: 1.05 Peak PV Grad: 4.00 Updated in Other Vendor System with Status of Final Cesario Galeana MD electronically signed on 03/20/2021 3:58:04 PM with status of Final
== END ==
LOC: HO.CARD 13:55
PROVIDERS: Visit Provider Internal Medicine
DX: I34.0 Nonrheumatic mitral (valve) insufficiency (principal)
CPT/HCPCS: 93306

== ENCOUNTER → 2021-03-24 13:19 | Outpatient (BNVA) | payer MEDICARE, SELFPAY | PROVIDERS: PCP Internal Medicine; Referring Provider Internal Medicine; Visit Provider Internal Medicine | DX: I34.0 Nonrheumatic mitral (valve) insufficiency (principal); I10 Essential (primary) hypertension | CPT/HCPCS: 99212 ==

== ENCOUNTER 2021-07-30 07:22 | Outpatient (REF) | payer MEDICARE, SELFPAY ==
[2021-07-30 11:31] LABS: Hemoglobin 12.6 g/dl (12.0-16.0); Mean Corpuscular HGB Conc 32.3 g/dl (31.0-35.0); Mean Corpuscular Hemoglobin 27.8 pg (27.0-33.0); Mean Corpuscular Volume 86.1 fL (80.0-98.0); Mean Platelet Volume 11.7 fL (9.4-12.3); Platelet Count 194 X10*3/uL (160-400); Red Blood Count 4.53 X10*6/uL (4.20-5.50); Red Cell Distribution Width 13.9 % (11.0-16.0); White Blood Count 7.3 X10*3/uL (4.8-10.8)
[2021-07-30 11:54] LABS: Alanine Aminotransferase 19 U/L (0-31); Albumin Level 3.9 g/dL (3.5-5.0); Alkaline Phosphatase 48 U/L (39-117); Anion Gap 12 (12-20); Aspartate Amino Transferase 24 U/L (5-31); Bilirubin Total 0.7 mg/dL (0.0-1.0); Blood Urea Nitrogen 15 mg/dL (9-16); Calcium 9.5 mg/dL (8.4-10.2); Carbon Dioxide 27 mmol/L (22-29); Chloride 102 mmol/L (96-108); Cholesterol 159 mg/dL; Estimated Glomerular Filt Rate > 60; Glucose Fasting 103 mg/dL (60-99); HDL Cholesterol 66 mg/dL; LDL Cholesterol Calculated 82 mg/dl; Potassium 4.3 mmol/L (3.3-5.1); Sodium 137 mmol/L (135-145); Total Protein 7.1 g/dL (6.5-8.0); Triglycerides 59 mg/dL
[2021-07-30 12:01] LABS: TSH reflex Free T4 2.01 uIU/mL (0.32-4.0); Vitamin D 25-OH Total 55.9 ng/mL (>30)
== END 2021-07-30 07:23 | disposition home or self-care (01) ==
LOC: HO.HMGCLDS 07:22
PROVIDERS: Visit Provider Internal Medicine
DX: I10 Essential (primary) hypertension (principal); E78.5 Hyperlipidemia, unspecified; E55.9 Vitamin D deficiency, unspecified; M81.0 Age-related osteoporosis without current pathological fracture
CPT/HCPCS: 36415; 80053; 80061; 82306; 84443; 85027

== ENCOUNTER 2021-08-15 10:19 | Outpatient (REF) | payer MEDICARE, SELFPAY ==
--- NOTE | ~2021-08-15 | MM_ITS ---
EXAMINATION: BONE DENSITOMETRY CLINICAL INDICATION: Osteoporosis. COMPARISON: This is the patient's baseline examination. TECHNIQUE: Using a [employer] DXA System (software version: 13.1) manufactured by [employer], dual-energy x-ray absorptiometry was performed of the lumbar spine and left hip. The images are of good technical quality. Summary results are attached. FINDINGS: AP SPINE L1-L3 (excluding L4): The data of L1-L4 has been changed to exclude the L4 vertebral body, because degenerative sclerosis at this level may cause overestimation of lumbar spine density. BMD 0.978 g/cm2, Z-score 0.4, T-score -1.6, osteopenia. LEFT FEMUR, NECK: BMD 0.887 g/cm2, Z-score 1.2, T-score -1.1, osteopenia. LEFT FEMUR, TOTAL: BMD 0.760 g/cm2, Z-score 0.2, T-score -2.0, osteopenia. IDENTIFIED RISK FACTORS: Menopause, osteoporosis, low calcium intake, history of fracture (adult), Thiazide. HISTORY OF FRACTURE: Forearm, humerus, other fracture. MEDICATIONS: Calcium, vitamin D, Prolia. MM/XR DEXA axial skeleton IMPRESSION: 1. DIAGNOSIS: Osteopenia based on the lowest T-score value of -2.0 in the total femur applying World Health Organization criteria. 2. 10-YEAR FRACTURE RISK PREDICTION, FRAX: Major osteoporotic fracture (clinical spine, forearm, hip or shoulder) 16.2%. Hip fracture 3.1%. 3. Treatment Recommendations: NOF guidelines recommend consideration for treatment in postmenopausal women and men age 50 and older presenting with the following: -A hip or vertebral (clinical or morphometric) fracture. -T-score less than or equal to -2.5 at the femoral neck or spine after appropriate evaluation to exclude secondary causes. -Low bone mass at the hip or spine and a 10-year fracture probability by FRAX of greater than or equal to 3% for hip fracture or greater than or equal to 20% for major osteoporotic fracture based on the [place] adapted WHO algorithm. 4. Other Recommendations: All treatment decisions require clinical judgment and consideration of individual patient factors, including patient preferences, comorbidities, previous drug use, risk factors not captured in the FRAX model (e.g. frailty, falls, vitamin D deficiency, increased bone turnover, interval significant decline in bone density) and possible under or overestimation of fracture risk by FRAX. Additional medical evaluation for secondary cause of low bone mineral density may be appropriate. FUTURE SCAN RECOMMENDATION: People with diagnosed cases of osteoporosis or at high risk for fracture should have regular bone mineral density tests. For patients eligible for Medicare, routine testing is allowed once every 2 years. The testing frequency can be increased to one year for patients who have rapidly progressing disease, those who are receiving or discontinuing medical therapy to restore bone mass, or have additional risk factors.
== END 2021-08-15 10:20 | disposition home or self-care (01) ==
LOC: HO.MAMMO 10:19
PROVIDERS: PCP Internal Medicine; Visit Provider Internal Medicine
DX: Z13.820 Encounter for screening for osteoporosis (principal); M81.0 Age-related osteoporosis without current pathological fracture; Z78.0 Asymptomatic menopausal state
CPT/HCPCS: 77080

== ENCOUNTER → 2021-09-17 10:35 | Outpatient (REF) | payer MEDICARE, SELFPAY ==
--- NOTE | 2021-09-17 10:38 | CA_ITS ---
Transthoracic Echocardiogram Patient (Last, First, Middle): Kailey Neil M Gender: Female Date of : 1940 Age: 81 Procedure Date: 09/17/2021 Procedure Type: Transthoracic Echocardiogram Location: OP Height: 162.56 cm Weight: 58.97 kg BSA: 1.63 m2 Heart Rate: bpm BP: 120 / 60 mmHg Grape Grower: SHAYAN Guerrero MD: Cesario Galeana MD Frame Bander: Ton Bro MD Symptoms: I34.0 - Nonrheumatic mitral (valve) insufficiency Study Quality: Fair ECG Rhythm: Sinus Conclusions: - 1. Normal LV systolic function 2. Left atrium appears dilated 3. Moderate to severe eccentric anteriorly directed mitral regurgitation secondary to posterior mitral leaflet prolapse 4. Normal RV systolic pressure 5. No pericardial effusion Findings Left Ventricle Normal left ventricular size, thickness, and systolic function. The visually estimated ejection fraction is between 60-65%. Right Ventricle Normal right ventricular cavity size and systolic function. Atria The left atrium is likely dilated. There is no evidence of interatrial shunt. The right atrium is normal in size. Aortic Valve Normal aortic valve structure and function. There is no aortic valve stenosis. There is no aortic valve regurgitation. Mitral Valve There is mild anterior and moderate posterior mitral leaflet thickening. There is moderate posterior mitral leaflet prolapse. There is moderate to severe mitral valve regurgitation. The mitral regurgitation jet is directed anteriorly. There is no mitral valve stenosis. Pulmonic Valve The pulmonic valve is likely normal. Tricuspid Valve Normal tricuspid valve structure. There is mild tricuspid valve regurgitation. The right ventricular systolic pressure is normal. The right ventricular systolic pressure is 26 mmHg. Normal right atrial pressure. There is no evidence of pulmonary hypertension. Great Vessels All visible segments of the aorta are normal in size. The pulmonary artery was not well visualized. Venous The inferior vena cava is normal in size and collapses greater than 50% with inspiration. Pericardium/Pleural There is no evidence of pericardial effusion. Measurements 2D Linear Measurements IVSd: 0.91 0.6-0.9/0.6-1.0 cm LVIDd: 3.88 3.9-5.3/4.2-5.9 cm LVIDd Index: 2.38 2.4-3.2/2.2-3.1 cm/m2 LVIDs: 3.05 2.0-3.6 cm LVPWd: 0.91 0.7-1.1 cm LA Diam: 3.70 2.7-3.8/3.0-4.0 cm LAIDs Index: 2.27 1.5-2.3 cm/m2 LV Mass: 132.36 67-162/88-224 g LV Mass Index: 81.20 43-95/49-115 g/m2 LVOT Diam: 2.00 3.0+(-)1.3 cm 2D Systolic Function EF 4C: 58.60 >55% EF 2C: 67.70 >55% EF BiP: 64.10 >55% Mitral Valve MV Pk E: 1.40 MV PK A: 0.78 MV Decel Time: 246.00 E/A: 1.80 E'Lateral: 7.51 E'Medial: 6.74 E/E' Med: 20.80 E/E' Lat: 18.60 PHT: 72.00 MVA PHT: 3.06 Decel Lea: 5.70 MR Vol - PW Dopp: 57.66 MR VTI: 1.86 MR ERO: 31.00 MR Alias Celestine: 0.42 MR RAD: 0.80 Aortic Valve AoV Pk Celestine: 1.68 AoV Mn Celestine: 1.06 AoV VTI: 0.38 AoV Pk Grad: 11.00 Aov Mn Grad: 5.00 DONNA Cont.VTI: 2.20 AI Pk Celestine: 4.06 AI Lea: 2.10 LVOT LVOT Pk Celestine: 1.22 LVOT Mn Celestine: 0.74 LVOT VTI: 0.26 LVOT Pk Grad: 6.00 LVOT Mn Grad: 3.00 LVOT Diam: 2.00 LVOT Area: 3.14 Diastolic Function MV Pk E: 1.40 MV Pk A: 0.78 E/A: 1.80 E'Medial: 6.74 E/E' Med: 20.80 E' Laterial: 7.51 E/E' Lat: 18.60 Right Ventricle TAPSE (mm): 18.80 TVS' Celestine: 10.07 Tricuspid Valve TR Pk Celestine: 2.38 TR Pk Grad: 23.00 RA Press: 3.00 RVSP: 26.00 Great Vessels Aorta Sinus of Valsalva: 2.87 2.0-3.[address] Ridge: 2.81 1.7-3.4 cm Ao Asc: 3.40 2.1-3.4 cm Ao Arch: 2.70 Updated in Other Vendor System with Status of Final Ton Bro MD electronically signed on 09/17/2021 4:27:43 PM with status of Final
== END ==
LOC: HO.CARD 10:35
PROVIDERS: Visit Provider Internal Medicine
DX: I34.0 Nonrheumatic mitral (valve) insufficiency (principal)
CPT/HCPCS: 93306

== ENCOUNTER → 2021-09-29 13:22 | Outpatient (BNVA) | payer MEDICARE, SELFPAY | PROVIDERS: PCP Internal Medicine; Referring Provider Internal Medicine; Visit Provider Internal Medicine | DX: I34.0 Nonrheumatic mitral (valve) insufficiency (principal); I10 Essential (primary) hypertension; Z79.899 Other long term (current) drug therapy | CPT/HCPCS: 93005; 99212 ==

== ENCOUNTER 2022-03-14 09:19 | Observation (INO) | payer MEDICARE, SELFPAY ==
--- NOTE | ~2022-03-14 | CT_ITS ---
EXAMINATION: CT ABDOMEN AND PELVIS WITHOUT CONTRAST CLINICAL INFORMATION: Rectal bleeding. COMPARISON: None TECHNIQUE: Multidetector volumetric imaging was performed from the superior aspect of the liver through the pubic symphysis. Sagittal and coronal reformatted images were obtained on the technologist's workstation. This CT examination was performed using dose optimization techniques as appropriate, variously including the following: *Automated exposure control *Adjustment of mA and/or kV according to patient size (this includes techniques or standardized protocols for targeted exams where dose is matched to indication/reason for exam; i.e. extremities or head) *Use of iterative reconstruction technique DLP: 401 mGy-cm FINDINGS: LUNG BASES: The lung bases are clear. The heart size is normal. LIVER, GALLBLADDER, AND BILIARY TREE: The liver is normal in size, shape, and attenuation. No focal hepatic lesion or biliary ductal dilatation is present. The gallbladder is unremarkable with no evidence of radiopaque gallstones, gallbladder wall thickening, or obvious pericholecystic inflammatory changes. PANCREAS: Unremarkable. SPLEEN: Unremarkable. ADRENAL GLANDS: Unremarkable. KIDNEYS AND URETERS: The kidneys are normal in size, shape, and attenuation. No hydronephrosis, hydroureter, or calculi seen. No perinephric stranding. BLADDER: Unremarkable. GASTROINTESTINAL TRACT: There is large amount of stool, diffuse diverticuli and gas in colon without distention. There is no fat stranding. However there is a short segment of mural thickening involving mid descending colon on axial image 32/3.. The small bowel loops are normal caliber. The appendix is normal caliber. There is no free air or free fluid. No abnormal pelvic lymph nodes seen. ABDOMINAL WALL: No significant hernia is appreciated. LYMPH NODES: Normal. VASCULAR: There is atherosclerotic calcification of abdominal aorta without aneurysmal dilatation. PELVIC VISCERA: No free air or free fluid seen. No abnormal pelvic lymph nodes. OSSEOUS STRUCTURES: No aggressive lytic or sclerotic process seen. CT/CT abdomen pelvis wo IV con IMPRESSION: 1. Diffuse colonic diverticulosis without diverticulitis. 2. Moderate to significant constipation with mild diffuse annular mural thickening in the mid descending colon. Question stool versus underlying lesion. Recommend colonoscopy or barium enema exam. Needs a good prep prior to GI studies. 3. No radiopaque urolith or hydroureteronephrosis. Fleischner guidelines were followed.
[2022-03-14 09:21] VITALS: BP 167/67; PULSE 73; RESP 18; TEMP 36.8; O2SAT 98; BMI 22.3
[2022-03-14 09:47] LABS: MANUAL DIFF FLAG NO
[2022-03-14 09:56] LABS: Basophils Percent Auto 0.5 % (0-2); Eosinophils Absolute Auto 0.2 X10*3/uL (0.0-0.4); Eosinophils Percent Auto 2.2 % (0-4); Hematocrit 35.8 % (37.0-47.0); Hemoglobin 11.9 g/dl (12.0-16.0); Imm Gran Abs Auto 0.03 X10*3/uL (0.00-0.03); Imm Gran Pct Auto 0.4 % (0.0-0.4); Lymphocytes Absolute Auto 1.4 X10*3/uL (1.2-4.9); Lymphocytes Percent Auto 17.7 % (20-40); Mean Corpuscular HGB Conc 33.2 g/dl (31.0-35.0); Mean Corpuscular Hemoglobin 29.2 pg (27.0-33.0); Mean Platelet Volume 11.1 fL (9.4-12.3); Monocytes Absolute Auto 0.7 X10*3/uL (0.1-1.2); Monocytes Percent Auto 8.6 % (2-11); Neutrophils Absolute Auto 5.7 x10*3/uL (2.0-8.3); Neutrophils Percent Auto 70.6 % (45-73); Platelet Count 158 X10*3/uL (160-400); Red Blood Count 4.07 X10*6/uL (4.20-5.50); Red Cell Distribution Width 13.6 % (11.0-16.0); White Blood Count 8.1 X10*3/uL (4.8-10.8)
[2022-03-14 10:00] VITALS: BP 134/71; PULSE 91; RESP 26; TEMP 37.7; O2SAT 89
--- NOTE | 2022-03-14 10:00 | ED_ITS ---
HPI - GI Bleed General Chief complaint: GI Bleed Stated complaint: rectal bleeding Time Seen by Provider: 03/14/22 09:47 Source: patient Mode of arrival: ambulatory Limitations: no limitations History of Present Illness HPI Narrative: 81-year-old female came in for evaluation of rectal bleeding. Started yesterday in the afternoon when patient noticed loose bowel movement with maroon colored stool no abdominal pain, no fever, no chills, no nausea, no vomiting, patient is not taking blood thinner medication. Never had this problem in the past, no abdominal trauma, no CP, no SOB. No recent use of NSAIDs Related Data Home Medications Medication Instructions Recorded Confirmed cholecalciferol (vitamin D3) 10 10 mcg PO DAILY 08/22/20 02/04/22 mcg (400 unit) capsule aspirin 81 mg tablet,delayed 81 mg PO DAILY 03/24/21 02/04/22 release (Adult Low Dose Aspirin) fluticasone 100 mcg-salmeterol 50 inhalation BID 03/14/22 mcg/dose blistr powdr for inhalation (Advair Diskus) Previous Rx's Medication Instructions Recorded atorvastatin 20 mg tablet 20 mg PO DAILY #90 tabs 04/21/21 denosumab 60 mg/mL subcutaneous 60 mg subcut [id number] #1 mL 06/20/21 syringe (Prolia) amlodipine 2.5 mg tablet 2.5 mg PO DAILY 90 days #90 tabs 08/22/21 Allergies Allergy/AdvReac Type Severity Reaction Status Date / Time cat dander [CATS] Allergy Severe DIFFICULTY Verified 02/04/22 09:03 BREATHING gluten Allergy Severe unk Uncoded 02/04/22 09:03 Review of Systems Review of Systems: All other systems are reviewed and are negative Constitutional: Reports as per HPI and Reports no additional constitutional complaints Eyes: Reports as per HPI and Reports no additional eye complaints Reports system reviewed and no additional complaints, except as documented Cardiovascular: Reports as per HPI and Reports no additional cardiovascular complaints Respiratory: Reports as per HPI and Reports no additional respiratory complaints Gastrointestinal: Reports as per HPI and Reports no additional gastrointestinal complaints Genitourinary: Reports no additional female genitourinary complaints Musculoskeletal: Reports no additional musculoskeletal complaints Skin/Breast: Reports system reviewed and no additional complaints, except as docu Psychiatric: Reports no additional psychiatric complaints Endocrine: Reports no additional endocrine complaints Hematologic/Lymphatic: Reports no additional hematologic/lymphatic complaints Allergic/Immunologic: Reports no additional allergic/immunologic complaints Reports system reviewed and no additional complaints, except as documented and Reports Abnormal speech present [facility] Past Medical History Medical History Annual physical exam Asthma Celiac sprue HTN (hypertension) Hyperlipidemia Non-rheumatic mitral regurgitation Osteoporosis Prolapse of female pelvic organs Vitamin D deficiency Surgical History H/O colonoscopy Hx of cataract extraction Family History Family History Father CVD (cardiovascular disease) Mother Cancer Social History Social History Housing: Apartment Alcohol intake: current Alcohol intake frequency: holidays/special occasions only Patient Tobacco Use Status: Former Tobacco user Quit Date: >50 yr ago e-Cigarette/Vaping Use: Never Used Advance Directives: Yes Advance Directives on File: No 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al status: retired Cognitive needs: No Hearing needs: No Vision needs: Yes Physical Exam Vital Signs: Vital Signs: Last Vital Signs Temp 98.4 F 03/14/22 11:17 Pulse 63 03/14/22 11:17 Resp 14 03/14/22 11:17 BP 143/58 H 03/14/22 11:17 Pulse Ox 96 03/14/22 11:17 O2 Del Method 03/14/22 11:17 O2 Flow Rate 4 03/14/22 10:00 BMI result Body Mass Index 22.3 Vital signs have been reviewed as appeared to be correct. Blood pressure normal. Heart rate normal. Respiration rate normal. Temperature normal. Oxygen saturation normal. Appearance: Alert. Oriented X3. No acute distress. Head: Normal external exam. Normocephalic. Atraumatic. No Currie signs noted. No raccoon eyes noted Eyes: PERRLA. EOMI. Conjunctiva and sclera normal. Eyelids normal. ENT: TM's Normal. Pharynx normal. Uvula midline. Moist mucous membranes. No trismus noted. No drooling noted. No muffled voice noted. Neck: Normal inspection. Neck supple. FROM. No adenopathy. Thyroid Normal. No meningeal signs. No neck mass noted. CVS: Normal heart rate and rhythm. Heart sound normal. No murmurs noted. Pulses normal throughout. Respiratory: No respiratory distress. Painless inspiration. Breath sounds normal. No wheezes/rales/rhonchi noted. Chest nontender. No accessory muscle usage noted or decreased air movement noted. Abdomen: Soft and nontender. Bowel sounds normal in all 4 quadrants. No distention noted. No organomegaly noted. No visible injury noted. Rectal exam: Maroon color stool with guaiac positive. Back: No CVA tenderness. Full range of motion noted. Skin: Skin warm and dry. Normal skin color. Normal skin turgor. No rashes/ lesions/lacerations noted. Extremities: No lower extremity edema. Extremities exhibit normal range of motion. Extremities nontender. Neuro: Oriented X 3. Cranial nerve exam: II-XII are grossly intact No motor deficit. No sensory deficit. Reflexes normal. Course Course Course Narrative: 81-year-old female with maroon color stool per rectum, patient is hemodynamically stable in the emergency department CT abdomen pelvis recommending colonoscopy for rule out mass, patient will be admitted for further GI evaluation. Medications Administered Discontinued Medications Generic Name Dose Route Start Last Admin Trade Name Freq PRN Reason Stop Dose Admin Pantoprazole Sodium 40 mg 03/14/22 10:01 03/14/22 10:28 Pantoprazole Sodium 40 Mg/10 Ml Vial IVPUSH 03/14/22 10:02 40 mg ONCE ONE Administration MDM - GI Bleed Medical Records Attestation: I reviewed the patient's medical records. Lab Data Attestation: I reviewed the patient's lab results. Result diagrams: 03/14/22 09:43 03/14/22 09:43 Labs: Lab Results 03/14/22 03/14/22 03/14/22 Range/Units 09:43 09:43 10:02 WBC 8.1 (4.8-10.8) X10*3/uL RBC 4.07 L (4.20-5.50) X10*6/uL Hgb 11.9 L (12.0-16.0) g/dl Hct 35.8 L (37.0-47.0) % MCV 88.0 (80.0-98.0) fL MCH 29.2 (27.0-33.0) pg MCHC 33.2 (31.0-35.0) g/dl RDW 13.6 (11.0-16.0) % Plt Count 158 L (160-400) X10*3/uL MPV 11.1 (9.4-12.3) fL Immature Gran % (Auto) 0.4 (0.0-0.4) % Neut % (Auto) 70.6 (45-73) % Lymph % (Auto) 17.7 L (20-40) % [place] % (Auto) 8.6 (2-11) % Eos % (Auto) 2.2 (0-4) % Baso % (Auto) 0.5 (0-2) % Lymph # (Auto) 1.4 (1.2-4.9) X10*3/uL [place] # (Auto) 0.7 (0.1-1.2) X10*3/uL Eos # (Auto) 0.2 (0.0-0.4) X10*3/uL Baso # (Auto) 0.0 (0.0-0.2) X10*3/uL Abs Immat Gran (auto) 0.03 (0.00-0.03) X10*3/uL Absolute Neuts (auto) 5.7 (2.0-8.3) x10*3/uL Absolute Nucleated RBC 0.000 (0.0-0.012) X10*3/uL Nucleated RBC % (auto) 0.0 (0.0-0.2) /100WBC PT (10.0-13.1) SEC INR (0.9-1.1) APTT (26.0-36.4) SEC Sodium 141 (135-145) mmol/L Potassium 3.6 (3.3-5.1) mmol/L Chloride 105 (96-108) mmol/L Carbon Dioxide 28 (22-29) mmol/L Anion Gap 12 (12-20) BUN 12 (9-16) mg/dL Creatinine 0.64 (0.5-1.4) mg/dL Estim Creat Clear Calc 60.5 Estimated GFR > 60 Random Glucose 99 (60-115) mg/dL Calcium 9.2 (8.4-10.2) mg/dL Stool Occult Blood POSITIVE (NEGATIVE) Blood Type Antibody Screen 03/14/22 03/14/22 Range/Units 10:03 10:30 WBC (4.8-10.8) X10*3/uL RBC (4.20-5.50) X10*6/uL Hgb (12.0-16.0) g/dl Hct (37.0-47.0) % MCV (80.0-98.0) fL MCH (27.0-33.0) pg MCHC (31.0-35.0) g/dl RDW (11.0-16.0) % Plt Count (160-400) X10*3/uL MPV (9.4-12.3) fL Immature Gran % (Auto) (0.0-0.4) % Neut % (Auto) (45-73) % Lymph % (Auto) (20-40) % [place] % (Auto) (2-11) % Eos % (Auto) (0-4) % Baso % (Auto) (0-2) % Lymph # (Auto) (1.2-4.9) X10*3/uL [place] # (Auto) (0.1-1.2) X10*3/uL Eos # (Auto) (0.0-0.4) X10*3/uL Baso # (Auto) (0.0-0.2) X10*3/uL Abs Immat Gran (auto) (0.00-0.03) X10*3/uL Absolute Neuts (auto) (2.0-8.3) x10*3/uL Absolute Nucleated RBC (0.0-0.012) X10*3/uL Nucleated RBC % (auto) (0.0-0.2) /100WBC PT 13.9 H (10.0-13.1) SEC INR 1.2 H (0.9-1.1) APTT 41.8 H (26.0-36.4) SEC Sodium (135-145) mmol/L Potassium (3.3-5.1) mmol/L Chloride (96-108) mmol/L Carbon Dioxide (22-29) mmol/L Anion Gap (12-20) BUN (9-16) mg/dL Creatinine (0.5-1.4) mg/dL Estim Creat Clear Calc Estimated GFR Random Glucose (60-115) mg/dL Calcium (8.4-10.2) mg/dL Stool Occult Blood (NEGATIVE) Blood Type B Positive Antibody Screen NEGATIVE Imaging Data CT scan - abdomen: Attestation: I personally reviewed and interpreted this imaging study as follows: Radiologist's impression: 1.? Diffuse colonic diverticulosis without diverticulitis. 2.? Moderate to significant constipation with mild diffuse annular mural thickening in the mid descending colon. Question stool versus underlying lesion. Recommend colonoscopy or barium enema exam. Needs a good prep prior to GI studies. 3. No radiopaque urolith or hydroureteronephrosis. ? Discharge Plan Discharge Clinical Impression: GI bleed Patient Disposition: Admitted As Inpatient
[2022-03-14 10:01] LABS: Anion Gap 12 (12-20); Blood Urea Nitrogen 12 mg/dL (9-16); Calcium 9.2 mg/dL (8.4-10.2); Carbon Dioxide 28 mmol/L (22-29); Chloride 105 mmol/L (96-108); Creatinine Clr Calc Pharmacy 60.5; Estimated Glomerular Filt Rate > 60; Glucose Random 99 mg/dL (60-115); Potassium 3.6 mmol/L (3.3-5.1); Sodium 141 mmol/L (135-145)
[2022-03-14 10:08] LABS: OBS Int Ctl Valid YES; OBS1 POSITIVE (NEGATIVE)
[2022-03-14 10:15] LABS: INTERNATIONAL NORM RATIO 1.2 (0.9-1.1); Prothrombin Time 13.9 SEC (10.0-13.1)
[2022-03-14 10:18] LABS: Partial Thromboplastin Time 41.8 SEC (26.0-36.4)
[2022-03-14 10:25] VITALS: BP 107/65; PULSE 66; RESP 14; TEMP 36.9; O2SAT 97
[2022-03-14] MEDS: Pantoprazole Sodium 40 MG/10 ML VIAL IVPUSH (10:28)
[2022-03-14 11:17] VITALS: BP 143/58; PULSE 63; RESP 14; TEMP 36.9; O2SAT 96
[2022-03-14 11:48] LABS: COVID-19 Test Negative (Negative); IDNOW Serial# 16C4AD1C
--- NOTE | 2022-03-14 11:48 | PM.IMHP ---
History of Present Illness Date of Service: 03/14/22 Attending physician on admission: [facility] Chief Complaint: brbpr 81-year-old female with history of moderate persistent asthma, hypertension, hyperlipidemia, nonrheumatic mitral regurgitation, and celiac disease presented to the ED this morning for 3 episodes of bright red blood per rectum. She reports 3 episodes of soft stool last night and then twice this morning where the stool was maroon in color with several clots. She does have a history of hemorrhoids but states these have never caused her any issue and she denies any history of rectal bleeding. She was previously compliant with screening colonoscopy ease and denies any significant polyps. No family history of colon cancer. There is no fevers, chills, nausea, vomiting, abdominal pain, diarrhea, constipation, melena. Denies straining. She does take a baby aspirin daily but denies any other use of blood thinners or NSAIDs. In the ED, VSS. WBC 8.1. H/H 11.9/35.8% (last recorded 12.6/39.0% 07/2021), PLT 158. PT 13.9, INR 1.2, PTT 41.8. Renal function electrolyte levels normal. Stool occult blood positive. Negative for COVID-19. Type and screen performed showing B positive blood type. CT abdomen/pelvis showed diffuse colonic diverticulosis without diverticulitis as well as moderate to significant constipation with mild diffuse annular mural thickening in the mid descending colon with question of stool versus underlying lesion. Follow-up colonoscopy recommended with good prep prior to GI studies. Patient to be observed overnight for blood loss anemia and gastroenterology evaluation. Review of Systems Review of Systems: General: No fevers, malaise, unintentional weight loss HEENT: No blurred vision, diplopia. Cardiovascular: No chest pain, palpitations, or leg edema Respiratory: No shortness of breath, wheezing, cough GI: + hematochezia, +external hemorrhoids. No abdominal pain, nausea, vomiting, diarrhea, constipation, melena : No dysuria, hematuria, increased urinary frequency, decreased urinary output MSK: No myalgia, back pain Neuro: No headaches, weakness, paresthesias Skin: No rashes or lesions [facility] Medical History Annual physical exam Asthma Celiac sprue HTN (hypertension) Hyperlipidemia Non-rheumatic mitral regurgitation Osteoporosis Prolapse of female pelvic organs Vitamin D deficiency Family History Father CVD (cardiovascular disease) Mother Oral cancer Brother Myocardial infarction Surgical History H/O colonoscopy Hx of cataract extraction Social History Housing: Apartment Alcohol intake: current Alcohol intake frequency: holidays/special occasions only Patient Tobacco Use Status: Former Tobacco user Quit Date: >50 yr ago e-Cigarette/Vaping Use: Never Used Advance Directives: Yes Advance Directives on File: No 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al status: retired Cognitive needs: No Hearing needs: No Vision needs: Yes Meds Allergies Allergy/AdvReac Type Severity Reaction Status Date / Time cat dander [CATS] Allergy Severe DIFFICULTY Verified 02/04/22 09:03 BREATHING gluten Allergy Severe unk Uncoded 02/04/22 09:03 Active Medications: Current Medications Acetaminophen (Acetaminophen 325 Mg Tablet) 650 mg PO Q6H PRN PRN Reason: Pain, Mild (Pain Scale 1-3) Ondansetron HCl (Ondansetron Hcl 4 Mg/2 Ml Vial) 4 mg IVPUSH Q8H PRN PRN Reason: Nausea and Vomiting Pharmacy Consult (Consult Rx Perform Med Rec) 1 each MISCELLANE ONCE PRN PRN Reason: Consult order Sodium Chloride (0.9 % Sodium Chloride Flush 3 Ml Syringe) 3 ml IVFLUSH [facility] Medications Medication Instructions Recorded Confirmed Last Taken Type cholecalciferol (vitamin D3) 10 10 mcg PO DAILY 08/22/20 02/04/22 Unknown History mcg (400 unit) capsule aspirin 81 mg tablet,delayed 81 mg PO DAILY 03/24/21 02/04/22 Unknown History release (Adult Low Dose Aspirin) fluticasone 100 mcg-salmeterol 50 inhalation BID 03/14/22 Unknown History mcg/dose blistr powdr for inhalation (Advair Diskus) Physical Exam Vital Signs and Narrative: Vital Signs: Last Vital Signs Temp 98.4 F 03/14/22 11:17 Pulse 63 03/14/22 11:17 Resp 14 03/14/22 11:17 BP 143/58 H 03/14/22 11:17 Pulse Ox 96 03/14/22 11:17 O2 Del Method 03/14/22 11:17 O2 Flow Rate 4 03/14/22 10:00 BMI result Body Mass Index 22.3 Results Labs CBC and Chem 7: 03/14/22 09:43 03/14/22 09:43 Labs: Laboratory Results - last 24 hr 03/14/22 03/14/22 03/14/22 09:43 09:43 10:02 MCV 88.0 MCH 29.2 MCHC 33.2 RDW 13.6 Plt Count 158 L MPV 11.1 Immature Gran % (Auto) 0.4 Neut % (Auto) 70.6 Lymph % (Auto) 17.7 L [place] % (Auto) 8.6 Eos % (Auto) 2.2 Baso % (Auto) 0.5 Lymph # (Auto) 1.4 [place] # (Auto) 0.7 Eos # (Auto) 0.2 Baso # (Auto) 0.0 Abs Immat Gran (auto) 0.03 Absolute Neuts (auto) 5.7 Absolute Nucleated RBC 0.000 Nucleated RBC % (auto) 0.0 PT INR APTT Anion Gap 12 Estim Creat Clear Calc 60.5 Estimated GFR > 60 Random Glucose 99 Calcium 9.2 Stool Occult Blood POSITIVE Blood Type Antibody Screen 03/14/22 03/14/22 10:03 10:30 MCV MCH MCHC RDW Plt Count MPV Immature Gran % (Auto) Neut % (Auto) Lymph % (Auto) [place] % (Auto) Eos % (Auto) Baso % (Auto) Lymph # (Auto) [place] # (Auto) Eos # (Auto) Baso # (Auto) Abs Immat Gran (auto) Absolute Neuts (auto) Absolute Nucleated RBC Nucleated RBC % (auto) PT 13.9 H INR 1.2 H APTT 41.8 H Anion Gap Estim Creat Clear Calc Estimated GFR Random Glucose Calcium Stool Occult Blood Blood Type B Positive Antibody Screen NEGATIVE Imaging Radiologist's Impressions: Impressions Abdomen/Pelvis CT 03/14/22 10:19 IMPRESSION: 1. Diffuse colonic diverticulosis without diverticulitis. 2. Moderate to significant constipation with mild diffuse annular mural thickening in the mid descending colon. Question stool versus underlying lesion. Recommend colonoscopy or barium enema exam. Needs a good prep prior to GI studies. 3. No radiopaque urolith or hydroureteronephrosis. Fleischner guidelines were followed. Assessment and Plan (1) GI bleed: Status: Acute Plan 81-year-old female with history of moderate persistent asthma, hypertension, hyperlipidemia, nonrheumatic mitral regurgitation, osteopenia and celiac disease to be observed for BRBPR with mild blood loss anemia. #Acute blood loss anemia -Iron, ferritin, TIBC added on -H/H 11.9/35.8% (baseline 12.6/39.0% 07/2021) -T/s completed -Repeat h/h @ 5pm and then am -hemodynamically stable -Hold asa #BRBPR -Painless -CT abdomen/pelvis showed diffuse colonic diverticulosis without diverticulitis as well as moderate to significant constipation with mild diffuse annular mural thickening in the mid descending colon with question of stool versus underlying lesion -GI consulted -Follow H/H -Regular diet for now. May need inpt colonoscopy vs outpt #HTN- controlled -Continue amlodipine #Moderate persistent asthma -Continue advair -albuterol prn #Osteopenia -Continue calcium and vit d #HLD -continue statin DVT prophylaxis- mechanical dni Quality Stroke Does the patient have a stroke diagnosis?: No VTE Prior VTE?: No VTE Risk Level:: Medical - moderate - high VTE Device Contraindication: N/A - Device Ordered VTE Drug Contraindication: Treatment Not Indicated
[2022-03-14 12:30] LABS: Iron 61 mcg/dL (30-160); Percent Iron Saturation 19 % (15-50); Total Iron Binding Capacity 313 mcg/dL (228-428); Unsaturated Iron Binding 252 ug/dL
[2022-03-14 13:24] LABS: Ferritin 36 ng/mL (10-250)
--- NOTE | 2022-03-14 13:45 | PHA.MEDREC ---
Pharmacy Consult ? Medication Reconciliation Pharmacy has completed the medication reconciliation. Patient had a medication list that I reviewed with her. She used to be on prolia but states she took her last dose of that about a month ago. She also recently had a dose change on her advair from 250/50 to the 100/50 inhaler.
--- NOTE | 2022-03-14 14:06 | PC.NURSE ---
AOX4 AMB WITH STEADY GAIT, IV LABS COMPLETE. PT ADMITTED DUE TO GI BLEEDING. PT NEEDS BEING MET
[2022-03-14 14:32] VITALS: BP 129/46; PULSE 64; RESP 12; TEMP 36.7; O2SAT 98
[2022-03-14 15:00] LABS: Appearance Urine Clear; Color Urine Yellow; Glucose Urine UA Negative (Negative); Leukocyte Esterase Urine Trace (Negative); Nitrite Urine Negative (Negative); PH 8.5 (5.0-9.0); UMIC TRIGGER UACC YES; Urine Blood Negative (Negative); Urine Ketones Negative (Negative); Urine Protein Negative (Neg-Trace)
[2022-03-14 15:03] LABS: Bacteria Urine None Seen (None Seen); Hyaline Casts Urine 0-2 /LPF (0-2); RBC Urine 0-2 /HPF (0-2); Squamous Epithelial Cell Urine 0-2 /HPF (0-2); WBC Urine 0-5 /HPF (0-5)
[2022-03-14] MEDS: 0.9 % Sodium Chloride Flush 3 ML SYRINGE IVFLUSH (16:25)
[2022-03-14 16:56] LABS: MANUAL DIFF FLAG NO
[2022-03-14 17:09] LABS: Basophils Percent Auto 0.4 % (0-2); Eosinophils Absolute Auto 0.1 X10*3/uL (0.0-0.4); Eosinophils Percent Auto 1.5 % (0-4); Hemoglobin 11.6 g/dl (12.0-16.0); Imm Gran Abs Auto 0.03 X10*3/uL (0.00-0.03); Imm Gran Pct Auto 0.3 % (0.0-0.4); Lymphocytes Absolute Auto 1.8 X10*3/uL (1.2-4.9); Lymphocytes Percent Auto 19.5 % (20-40); Mean Corpuscular HGB Conc 33.1 g/dl (31.0-35.0); Mean Corpuscular Hemoglobin 29.1 pg (27.0-33.0); Mean Corpuscular Volume 87.9 fL (80.0-98.0); Mean Platelet Volume 11.4 fL (9.4-12.3); Monocytes Absolute Auto 0.8 X10*3/uL (0.1-1.2); Monocytes Percent Auto 8.3 % (2-11); Neutrophils Absolute Auto 6.6 x10*3/uL (2.0-8.3); Platelet Count 165 X10*3/uL (160-400); Red Blood Count 3.98 X10*6/uL (4.20-5.50); Red Cell Distribution Width 13.5 % (11.0-16.0); White Blood Count 9.4 X10*3/uL (4.8-10.8)
[2022-03-14 21:50] VITALS: BP 138/54; PULSE 61; TEMP 36.7; O2SAT 96
--- NOTE | 2022-03-14 22:38 | PC.NURSE ---
Pt. resting comfortably at this time. Denies complaints. Call kam within reach.
[2022-03-15 05:57] VITALS: BP 135/57; PULSE 62; RESP 15; TEMP 36.6; O2SAT 96
[2022-03-15 07:06] LABS: Hematocrit 32.4 % (37.0-47.0); Hemoglobin 10.5 g/dl (12.0-16.0); Mean Corpuscular HGB Conc 32.4 g/dl (31.0-35.0); Mean Corpuscular Hemoglobin 28.7 pg (27.0-33.0); Mean Corpuscular Volume 88.5 fL (80.0-98.0); Platelet Count 135 X10*3/uL (160-400); Red Blood Count 3.66 X10*6/uL (4.20-5.50); Red Cell Distribution Width 13.6 % (11.0-16.0); White Blood Count 7.4 X10*3/uL (4.8-10.8)
[2022-03-15 07:12] VITALS: BP 135/52; PULSE 56; RESP 16; TEMP 37.1; O2SAT 95
[2022-03-15] MEDS: 0.9 % Sodium Chloride Flush 3 ML SYRINGE IVFLUSH ×3 (07:27→23:11)
--- NOTE | 2022-03-15 07:27 | PC.NURSE ---
Pt alert and oriented, respirations even and unlabored speaking in full clear sentences. Pt awake and eating breakfast at this time
[2022-03-15] MEDS: Calcium + Vitamin D 250 MG TABLET 500 MG PO (08:13)
[2022-03-15] MEDS: Multivitamin TABLET 1 TAB PO (08:13)
[2022-03-15] MEDS: amLODIPine Besylate 2.5 MG TABLET PO (08:13)
--- NOTE | 2022-03-15 09:02 | P.PNIM_ITS ---
Subjective Subjective Date of Service: 03/15/22 Interval History: Seen in follow-up for acute blood loss anemia with suspected lower GI bleed Interval history: Patient reports feeling well. Did have another episode of soft brown colored stool. Continues denying any abdominal pain, nausea, vomiting, melena. No diarrhea or constipation. Vital signs stable. Review of Systems General: No fevers, malaise, unintentional weight loss Cardiovascular: No chest pain, palpitations, or leg edema Respiratory: No shortness of breath, wheezing, cough GI: +hematochezia. No abdominal pain, nausea, vomiting, diarrhea, constipation, melena MSK: No myalgia, back pain Neuro: No headaches, weakness, paresthesias Skin: No rashes or lesions Physical Exam Vital Signs: Vital Signs: Last Vital Signs Temp 98.7 F 03/15/22 07:12 Pulse 56 03/15/22 07:12 Resp 16 03/15/22 07:12 BP 135/52 L 03/15/22 07:12 Pulse Ox 95 03/15/22 07:12 O2 Del Method 03/15/22 07:12 O2 Flow Rate 4 03/14/22 10:00 BMI result Body Mass Index 22.3 Constitutional - Awake and Alert, No apparent distress Eyes - PERRLA, EOMI Cardiovascular - S1S2, RRR, No edema Respiratory - Normal lung expansion, Normal respiratory effort, No respiratory distress, CTA bilaterally Extremities - no calf tenderness bilaterally, no swelling Skin - Warm/Dry Neurological - Alert & oriented x3, 5/5 strength BUE and BLE Psychological - Appropriate affect Objective Data Active Medications Acetaminophen (Acetaminophen 325 Mg Tablet) 650 mg PO Q6H PRN PRN Reason: Pain, Mild (Pain Scale 1-3) Amlodipine Besylate (Amlodipine Besylate 2.5 Mg Tablet) 2.5 mg PO DAILY [facility]; Protocol Last Admin: 03/15/22 08:13 Dose: 2.5 mg Documented By: SAW Atorvastatin Calcium (Atorvastatin Calcium 20 Mg Tablet) 20 mg PO BEDTIME [facility] Calcium Carbonate/Cholecalciferol (Calcium + Vitamin D 250 Mg Tablet) 500 mg PO DAILY [facility] Last Admin: 03/15/22 08:13 Dose: 500 mg Documented By: SAW Fluticasone/Vilanterol (Fluticasone/Vilanterol 100/25 Blst.W.Dev) 1 puff INHALE RDAILY [facility] Melatonin (Melatonin 3 Mg Tablet) 6 mg PO BEDTIME PRN PRN Reason: Insomnia Multivitamins/Vitamin C (Multivitamin Tablet) 1 tab PO DAILY [facility] Last Admin: 03/15/22 08:13 Dose: 1 tab Documented By: SAW Ondansetron HCl (Ondansetron Hcl 4 Mg/2 Ml Vial) 4 mg IVPUSH Q8H PRN PRN Reason: Nausea and Vomiting Pharmacy Consult (Consult Rx Perform Med Rec) 1 each MISCELLANE ONCE PRN PRN Reason: Consult order Sodium Chloride (0.9 % Sodium Chloride Flush 3 Ml Syringe) 3 ml IVFLUSH QSHIFT [facility] Last Admin: 03/15/22 07:27 Dose: 3 ml Documented By: SAW Labs CBC & Chem 7: 03/15/22 06:49 03/14/22 09:43 Labs: Laboratory Results - last 24 hr 03/14/22 03/14/22 03/14/22 09:43 09:43 10:02 MCV 88.0 MCH 29.2 MCHC 33.2 RDW 13.6 Plt Count 158 L MPV 11.1 Immature Gran % (Auto) 0.4 Neut % (Auto) 70.6 Lymph % (Auto) 17.7 L [place] % (Auto) 8.6 Eos % (Auto) 2.2 Baso % (Auto) 0.5 Lymph # (Auto) 1.4 [place] # (Auto) 0.7 Eos # (Auto) 0.2 Baso # (Auto) 0.0 Abs Immat Gran (auto) 0.03 Absolute Neuts (auto) 5.7 Absolute Nucleated RBC 0.000 Nucleated RBC % (auto) 0.0 PT INR APTT Anion Gap 12 Estim Creat Clear Calc 60.5 Estimated GFR > 60 Random Glucose 99 Calcium 9.2 Iron 61 TIBC 313 % Saturation 19 Unsat Iron Binding 252 Ferritin 36 Urine Color Urine Appearance Urine pH Ur Specific [place] Urine Protein Urine Glucose (UA) Urine Ketones Urine Blood Urine Nitrite Ur Leukocyte Esterase Urine RBC Urine WBC Ur Squamous Epith Cells Urine Bacteria Hyaline Casts Stool Occult Blood POSITIVE COVID-19 ([facility]) COVID-19 Clin Com Blood Type Antibody Screen 03/14/22 03/14/22 03/14/22 10:03 10:30 11:25 MCV MCH MCHC RDW Plt Count MPV Immature Gran % (Auto) Neut % (Auto) Lymph % (Auto) [place] % (Auto) Eos % (Auto) Baso % (Auto) Lymph # (Auto) [place] # (Auto) Eos # (Auto) Baso # (Auto) Abs Immat Gran (auto) Absolute Neuts (auto) Absolute Nucleated RBC Nucleated RBC % (auto) PT 13.9 H INR 1.2 H APTT 41.8 H Anion Gap Estim Creat Clear Calc Estimated GFR Random Glucose Calcium Iron TIBC % Saturation Unsat Iron Binding Ferritin Urine Color Urine Appearance Urine pH Ur Specific [place] Urine Protein Urine Glucose (UA) Urine Ketones Urine Blood Urine Nitrite Ur Leukocyte Esterase Urine RBC Urine WBC Ur Squamous Epith Cells Urine Bacteria Hyaline Casts Stool Occult Blood COVID-19 ([facility]AH) Negative COVID-19 Clin Com See Note Blood Type B Positive Antibody Screen NEGATIVE 03/14/22 03/14/22 03/15/22 14:48 16:48 06:49 MCV 87.9 88.5 MCH 29.1 28.7 MCHC 33.1 32.4 RDW 13.5 13.6 Plt Count 165 135 L MPV 11.4 11.0 Immature Gran % (Auto) 0.3 Neut % (Auto) 70.0 Lymph % (Auto) 19.5 L [place] % (Auto) 8.3 Eos % (Auto) 1.5 Baso % (Auto) 0.4 Lymph # (Auto) 1.8 [place] # (Auto) 0.8 Eos # (Auto) 0.1 Baso # (Auto) 0.0 Abs Immat Gran (auto) 0.03 Absolute Neuts (auto) 6.6 Absolute Nucleated RBC 0.000 0.000 Nucleated RBC % (auto) 0.0 0.0 PT INR APTT Anion Gap Estim Creat Clear Calc Estimated GFR Random Glucose Calcium Iron TIBC % Saturation Unsat Iron Binding Ferritin Urine Color Yellow Urine Appearance Clear Urine pH 8.5 Ur Specific [place] 1.010 Urine Protein Negative Urine Glucose (UA) Negative Urine Ketones Negative Urine Blood Negative Urine Nitrite Negative Ur Leukocyte Esterase Trace H Urine RBC 0-2 Urine WBC 0-5 Ur Squamous Epith Cells 0-2 Urine Bacteria None Seen Hyaline Casts 0-2 Stool Occult Blood COVID-19 ([facility]) COVID-19 Clin Com Blood Type Antibody Screen Assessment and Plan (1) GI bleed: Status: Acute Plan 81-year-old female with history of moderate persistent asthma, hypertension, hyperlipidemia, nonrheumatic mitral regurgitation, osteopenia and celiac disease to be observed for BRBPR with mild blood loss anemia. #Acute blood loss anemia- from suspected lower GI bleed -H/H dropped to 10.5/32.4% (yesterday 11.9/10.5%) -hemodynamically stable -T/s completed- transfusion not indicated at this time -Follow CBC BID -hemodynamically stable -Hold asa -appreciate GI inout #BRBPR- suspect lower GI source -Painless, no melena, nausea/vomiting -CT abdomen/pelvis showed diffuse colonic diverticulosis without diverticulitis as well as moderate to significant constipation with mild diffuse annular mural thickening in the mid descending colon with question of stool versus underlying lesion -GI consulted -Follow H/H -Regular diet for now. May need inpt colonoscopy vs outpt #HTN- controlled -Continue amlodipine #Moderate persistent asthma -Continue advair -albuterol prn #Osteopenia -Continue calcium and vit d #HLD -continue statin DVT prophylaxis- mechanical dni Quality Stroke Does the patient have a stroke diagnosis?: No VTE Prior VTE?: No VTE Risk Level:: Medical - moderate - high VTE Device Contraindication: N/A - Device Ordered VTE Drug Contraindication: Treatment Not Indicated
--- NOTE | 2022-03-15 10:02 | PM.EVENT ---
Event Note Date of Service: 03/15/22 Event Note: GI consult dictated Colonoscopy planned for 03/16 for futher evaluation of rectal bleeding and ct findings. She is aware of risks and benefits and agrees to proceed.
--- NOTE | 2022-03-15 10:07 | MHC.SHP ---
Pre-Procedural Eval Section A Date of Service: 03/15/22 The patient is an INPATIENT: Yes Changes since office visit: No Cold of Flu in the past 2 weeks, No New Medical Problems, No Changes in Medication and No Patient answered all questions The History & Physical has been completed within 30 days and I have reviewed it.: Yes Section B Chief Complaint: BRBPR Allergies: Allergies Allergy/AdvReac Type Severity Reaction Status Date / Time cat dander [CATS] Allergy Severe DIFFICULTY Verified 02/04/22 09:03 BREATHING gluten Allergy Severe unk Uncoded 02/04/22 09:03 Plan I have reviewed the history and physical and performed a pertinent physical examination on my patient. No changes have occurred unless specified.
--- NOTE | 2022-03-15 10:48 | CONS_ITS ---
DATE OF SERVICE: 03/15/2022 REFERRING PHYSICIAN: FABRICIO Isaacs REASON FOR CONSULTATION: Rectal bleeding and abnormal CT scan. 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 This began the day before admission when she had bright red blood with loose stool. She had recurrent bleeding, which progressed to burgundy stools, and clots with no abdominal pain, fevers, chills, nausea, or vomiting. She was evaluated in the emergency room with laboratory studies, which documented a hematocrit of 35.8, which was down slightly from 39 in July. She was further evaluated with imaging including CT scanning, which was reviewed. This is interpreted as showing diverticulosis and mild diffuse annular mural thickening in the mid descending colon, for which colonoscopy was recommended. The patient has previously been evaluated with colonoscopy, most recently in September 2015, because of a personal history of colon polyps. This showed diverticulosis and internal hemorrhoids and further screening examinations were deferred based on her age and lack of findings. She has no personal nor family history of colon cancer. Prior to this episode, she has had no prior GI bleeding. She reports feeling well and enjoying a good diet. PAST MEDICAL HISTORY: 1. Colon polyps as above. 2. Diverticulosis. 3. Hypertension. 4. Hyperlipidemia. 5. Osteoporosis. 6. Celiac disease. 7. Mitral regurgitation. 8. Asthma. CURRENT MEDICATIONS: Her current medication list is reviewed in the chart. She has been on aspirin at home, but takes no other blood thinners. ALLERGIES: GLUTEN AND CATS. FAMILY HISTORY: This is negative for colon cancer. SOCIAL HISTORY: There is no current tobacco, alcohol, or substance abuse. 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 REVIEW OF SYSTEMS: SKIN: No pruritus. HEENT: Negative. CARDIOPULMONARY: No shortness of breath or chest pain. GASTROINTESTINAL: As above. GENITOURINARY: Negative. NEUROPSYCHIATRIC: Negative. PHYSICAL EXAMINATION: GENERAL: Shows a pleasant female, lying comfortably in bed. VITAL SIGNS: Reviewed in electronic medical record and are stable. SKIN: Anicteric. HEENT: Shows no scleral icterus. NECK: Without lymphadenopathy or thyromegaly. LUNGS: Clear. HEART: Shows regular rate and rhythm. S1, S2. No murmur. ABDOMEN: Soft without focal masses or tenderness. Bowel sounds are present. No organomegaly is noted. EXTREMITIES: Without edema. LABORATORY DATA: Laboratory data and CT scanning are reviewed. Her hematocrit has been stable since admission and she has not required blood transfusion. IMPRESSION: Gastrointestinal bleeding. The differential diagnosis for this includes gastrointestinal bleeding from hemorrhoids, diverticular disease, mass lesions, and polyps. I have recommended further evaluation with colonoscopy because of her rectal bleeding and CT scan findings. I have discussed risks and benefits of the procedure with her. She understands these and agrees to proceed. This will be arranged for tomorrow. Thanks for asking me to see her. I will follow her in the hospital with you. MD ABELARDO Harris/[place] / [phone]
[2022-03-15 13:44] VITALS: BP 133/53; PULSE 61; RESP 16; O2SAT 97
--- NOTE | 2022-03-15 13:44 | PC.NURSE ---
continuing to await med from pharmacy. pt denies any complaints and is aware of plan of care.
[2022-03-15] MEDS: PEG 3350/Na Sulf,Bicarb,Cl/KCL 4,000 ML SOLN.RECON 4000 ML PO (14:04)
--- NOTE | 2022-03-15 16:18 | PC.NURSE ---
family at bedside earlier, pt continues to work on go lytely. denies having any questions and no complaints at this time, will continue to monitor.
[2022-03-15] MEDS: Melatonin 3 MG TABLET 6 MG PO (20:12)
[2022-03-15] MEDS: Atorvastatin Calcium 20 MG TABLET PO (20:12)
[2022-03-15 20:19] VITALS: BP 114/60; PULSE 66; RESP 16; TEMP 36.8; O2SAT 96
[2022-03-16] VITALS (9 sets, daily range): BP systolic 96–159; BP diastolic 41–69; PULSE 63–71; RESP 16–18; TEMP 36.2–36.9; O2SAT 93–100; BMI 23.1
[2022-03-16 04:47] LABS: MANUAL DIFF FLAG NO
[2022-03-16 04:48] LABS: Basophils Absolute Auto 0.1 X10*3/uL (0.0-0.2); Basophils Percent Auto 0.6 % (0-2); Eosinophils Absolute Auto 0.3 X10*3/uL (0.0-0.4); Hematocrit 31.6 % (37.0-47.0); Hemoglobin 10.3 g/dl (12.0-16.0); Imm Gran Abs Auto 0.04 X10*3/uL (0.00-0.03); Imm Gran Pct Auto 0.4 % (0.0-0.4); Lymphocytes Absolute Auto 1.9 X10*3/uL (1.2-4.9); Lymphocytes Percent Auto 19.6 % (20-40); Mean Corpuscular HGB Conc 32.6 g/dl (31.0-35.0); Mean Corpuscular Hemoglobin 28.6 pg (27.0-33.0); Mean Corpuscular Volume 87.8 fL (80.0-98.0); Mean Platelet Volume 11.4 fL (9.4-12.3); Monocytes Absolute Auto 0.9 X10*3/uL (0.1-1.2); Monocytes Percent Auto 9.3 % (2-11); Neutrophils Absolute Auto 6.6 x10*3/uL (2.0-8.3); Neutrophils Percent Auto 67.1 % (45-73); Platelet Count 147 X10*3/uL (160-400); Red Cell Distribution Width 13.5 % (11.0-16.0); White Blood Count 9.8 X10*3/uL (4.8-10.8)
[2022-03-16] MEDS: 0.9 % Sodium Chloride Flush 3 ML SYRINGE IVFLUSH (07:47)
--- NOTE | 2022-03-16 07:50 | PC.NURSE ---
patient a&ox3, denies pain/discomfort, patient has about 2 oz left of bowel prep- pt denies bloody BM at this time, pt states her BM is currently brown in color. call kam within reach, will continue to monitor
--- NOTE | 2022-03-16 09:00 | PC.NURSE ---
report given to short stay, pt finished bowel prep
--- NOTE | 2022-03-16 11:53 | PC.NURSE ---
patient a&ox3 ambulating independently to bathroom, pt npo awaiting to go to short stay for procedure, denies pain/discomfort, will continue to monitor
--- NOTE | 2022-03-16 12:04 | MHC.CM.PN ---
Meet with patient for d/c planning and CM assessment. From home, lives alone, no services prior to hospitalization. Verified PCP. Vax'd and boosted. Daughter to transport @ d/c. Anticipate d/c home no services. [facility] notice delivered 03/16.
--- NOTE | 2022-03-16 13:26 | PC.NURSE ---
patient to short stay for colonoscopy
--- NOTE | 2022-03-16 14:12 | P.CONAN_ITS ---
[facility] Active Problems Active Problems: All Active Problems (Updated 03/14/22 @ 11:18 by Jenna Zepeda MD) GI bleed (Acute) Asthma (Acute) Non-rheumatic mitral regurgitation (Acute) Vitamin D deficiency (Acute) Osteoporosis (Acute) Shortness of breath (Acute) Palpitation (Acute) Essential hypertension (Acute) HTN (hypertension) (Acute) Hyperlipidemia (Acute) Annual physical exam (Acute) Past Medical History Medical History Annual physical exam Asthma Celiac sprue HTN (hypertension) Hyperlipidemia Non-rheumatic mitral regurgitation Osteoporosis Prolapse of female pelvic organs Vitamin D deficiency Family History Family History Father CVD (cardiovascular disease) Mother Oral cancer Brother Myocardial infarction Family history of problems with anesthesia: No Surgical History Surgical History H/O colonoscopy Hx of cataract extraction History of Problems with Anesthesia: No Social History Social History Housing: Apartment Alcohol intake: current Alcohol intake frequency: holidays/special occasions only Patient Tobacco Use Status: Former Tobacco user Quit Date: 1969 e-Cigarette/Vaping Use: Never Used Use of substances other than those prescribed or required for medical reasons: No Are you DNR?: No Advance Directives: Yes Advance Directives on File: No Advance Directives Date on File: 03/16/22 service: No 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al status: retired Cognitive needs: No Hearing needs: No Vision needs: Yes Meds Allergies Allergy/AdvReac Type Severity Reaction Status Date / Time cat dander [CATS] Allergy Severe DIFFICULTY Verified 02/04/22 09:03 BREATHING gluten Allergy Severe unk Uncoded 02/04/22 09:03 Active Medications: Current Medications Acetaminophen (Acetaminophen 325 Mg Tablet) 650 mg PO Q6H PRN PRN Reason: Pain, Mild (Pain Scale 1-3) Amlodipine Besylate (Amlodipine Besylate 2.5 Mg Tablet) 2.5 mg PO DAILY NADIA; Protocol Last Admin: 03/16/22 07:22 Dose: Not Given Atorvastatin Calcium (Atorvastatin Calcium 20 Mg Tablet) 20 mg PO BEDTIME NADIA Last Admin: 03/15/22 20:12 Dose: 20 mg Calcium Carbonate/Cholecalciferol (Calcium + Vitamin D 250 Mg Tablet) 500 mg PO DAILY [facility] Last Admin: 03/16/22 07:22 Dose: Not Given Fluticasone/Vilanterol (Fluticasone/Vilanterol 100/25 Blst.W.Dev) 1 puff INHALE RDAILY [facility] Last Admin: 03/16/22 08:13 Dose: Not Given Melatonin (Melatonin 3 Mg Tablet) 6 mg PO BEDTIME PRN PRN Reason: Insomnia Last Admin: 03/15/22 20:12 Dose: 6 mg Multivitamins/Vitamin C (Multivitamin Tablet) 1 tab PO DAILY [facility] Last Admin: 03/16/22 07:22 Dose: Not Given Ondansetron HCl (Ondansetron Hcl 4 Mg/2 Ml Vial) 4 mg IVPUSH Q8H PRN PRN Reason: Nausea and Vomiting Pharmacy Consult (Consult Rx Perform Med Rec) 1 each MISCELLANE ONCE PRN PRN Reason: Consult order Sodium Chloride (0.9 % Sodium Chloride Flush 3 Ml Syringe) 3 ml IVFLUSH QSHIFT [facility] Last Admin: 03/16/22 07:47 Dose: 3 ml Home Medications Medication Instructions Recorded Confirmed Last Taken Type aspirin 81 mg tablet,delayed 81 mg PO BEDTIME 03/24/21 03/14/22 03/13/22 History release (Adult Low Dose Aspirin) albuterol sulfate 90 mcg/actuation 1 inh inhalation QID PRN Shortness 03/14/22 03/14/22 Unknown History aerosol inhaler (ProAir HFA) Of Breath Or Wheezing atorvastatin 20 mg tablet 20 mg PO BEDTIME 03/14/22 03/14/22 03/13/22 History calcium carbonate 600 mg-vitamin 1 tab PO DAILY 03/14/22 03/14/22 03/14/22 History D3 5 mcg (200 unit) tablet fluticasone 100 mcg-salmeterol 50 1 inh inhalation BID 03/14/22 03/14/22 History mcg/dose blistr powdr for inhalation (Advair Diskus) melatonin 5 mg tablet 5 mg PO BEDTIME PRN Insomnia 03/14/22 03/14/22 03/13/22 History multivitamin 1 tab PO QAM 03/14/22 03/14/22 03/14/22 History Exam Exam Date and Time: March 16, 2022 1412 Height,Weight and Vital Signs: Height 5 ft 4 in Weight 61.235 kg Last Vital Signs Temp 98.5 F 03/16/22 13:43 Pulse 67 03/16/22 13:43 Resp 18 03/16/22 13:43 BP 158/65 H 03/16/22 13:43 Pulse Ox 98 03/16/22 13:43 O2 Del Method 03/16/22 13:43 O2 Flow Rate 4 03/14/22 10:00 Pertinent Lab Results Pertinent Lab Results: Laboratory Tests 03/14/22 03/14/22 03/14/22 09:43 09:43 10:02 WBC 8.1 RBC 4.07 L Hgb 11.9 L Hct 35.8 L MCV 88.0 MCH 29.2 MCHC 33.2 RDW 13.6 Plt Count 158 L MPV 11.1 Immature Gran % (Auto) 0.4 Neut % (Auto) 70.6 Lymph % (Auto) 17.7 L Wise % (Auto) 8.6 Eos % (Auto) 2.2 Baso % (Auto) 0.5 Lymph # (Auto) 1.4 Wise # (Auto) 0.7 Eos # (Auto) 0.2 Baso # (Auto) 0.0 Abs Immat Gran (auto) 0.03 Absolute Neuts (auto) 5.7 Absolute Nucleated RBC 0.000 Nucleated RBC % (auto) 0.0 PT INR APTT Sodium 141 Potassium 3.6 Chloride 105 Carbon Dioxide 28 Anion Gap 12 BUN 12 Creatinine 0.64 Estim Creat Clear Calc 60.5 Estimated GFR > 60 Random Glucose 99 Calcium 9.2 Iron 61 TIBC 313 % Saturation 19 Unsat Iron Binding 252 Ferritin 36 Urine Color Urine Appearance Urine pH Ur Specific [place] Urine Protein Urine Glucose (UA) Urine Ketones Urine Blood Urine Nitrite Ur Leukocyte Esterase Urine RBC Urine WBC Ur Squamous Epith Cells Urine Bacteria Hyaline Casts Stool Occult Blood POSITIVE COVID-19 (ALIYAH) COVID-19 Clin Com Blood Type Antibody Screen 03/14/22 03/14/22 03/14/22 10:03 10:30 11:25 WBC RBC Hgb Hct MCV MCH MCHC RDW Plt Count MPV Immature Gran % (Auto) Neut % (Auto) Lymph % (Auto) Wise % (Auto) Eos % (Auto) Baso % (Auto) Lymph # (Auto) Wise # (Auto) Eos # (Auto) Baso # (Auto) Abs Immat Gran (auto) Absolute Neuts (auto) Absolute Nucleated RBC Nucleated RBC % (auto) PT 13.9 H INR 1.2 H APTT 41.8 H Sodium Potassium Chloride Carbon Dioxide Anion Gap BUN Creatinine Estim Creat Clear Calc Estimated GFR Random Glucose Calcium Iron TIBC % Saturation Unsat Iron Binding Ferritin Urine Color Urine Appearance Urine pH Ur Specific [place] Urine Protein Urine Glucose (UA) Urine Ketones Urine Blood Urine Nitrite Ur Leukocyte Esterase Urine RBC Urine WBC Ur Squamous Epith Cells Urine Bacteria Hyaline Casts Stool Occult Blood COVID-19 (ALIYAH) Negative COVID-19 Clin Com See Note Blood Type B Positive Antibody Screen NEGATIVE 03/14/22 03/14/22 03/15/22 14:48 16:48 06:49 WBC 9.4 7.4 RBC 3.98 L 3.66 L Hgb 11.6 L 10.5 L Hct 35.0 L 32.4 L MCV 87.9 88.5 MCH 29.1 28.7 MCHC 33.1 32.4 RDW 13.5 13.6 Plt Count 165 135 L MPV 11.4 11.0 Immature Gran % (Auto) 0.3 Neut % (Auto) 70.0 Lymph % (Auto) 19.5 L Wise % (Auto) 8.3 Eos % (Auto) 1.5 Baso % (Auto) 0.4 Lymph # (Auto) 1.8 Wise # (Auto) 0.8 Eos # (Auto) 0.1 Baso # (Auto) 0.0 Abs Immat Gran (auto) 0.03 Absolute Neuts (auto) 6.6 Absolute Nucleated RBC 0.000 0.000 Nucleated RBC % (auto) 0.0 0.0 PT INR APTT Sodium Potassium Chloride Carbon Dioxide Anion Gap BUN Creatinine Estim Creat Clear Calc Estimated GFR Random Glucose Calcium Iron TIBC % Saturation Unsat Iron Binding Ferritin Urine Color Yellow Urine Appearance Clear Urine pH 8.5 Ur Specific [place] 1.010 Urine Protein Negative Urine Glucose (UA) Negative Urine Ketones Negative Urine Blood Negative Urine Nitrite Negative Ur Leukocyte Esterase Trace H Urine RBC 0-2 Urine WBC 0-5 Ur Squamous Epith Cells 0-2 Urine Bacteria None Seen Hyaline Casts 0-2 Stool Occult Blood COVID-19 (ALIYAH) COVID-19 Clin Com Blood Type Antibody Screen 03/16/22 04:15 WBC 9.8 RBC 3.60 L Hgb 10.3 L Hct 31.6 L MCV 87.8 MCH 28.6 MCHC 32.6 RDW 13.5 Plt Count 147 L MPV 11.4 Immature Gran % (Auto) 0.4 Neut % (Auto) 67.1 Lymph % (Auto) 19.6 L Wise % (Auto) 9.3 Eos % (Auto) 3.0 Baso % (Auto) 0.6 Lymph # (Auto) 1.9 Wise # (Auto) 0.9 Eos # (Auto) 0.3 Baso # (Auto) 0.1 Abs Immat Gran (auto) 0.04 H Absolute Neuts (auto) 6.6 Absolute Nucleated RBC 0.000 Nucleated RBC % (auto) 0.0 PT INR APTT Sodium Potassium Chloride Carbon Dioxide Anion Gap BUN Creatinine Estim Creat Clear Calc Estimated GFR Random Glucose Calcium Iron TIBC % Saturation Unsat Iron Binding Ferritin Urine Color Urine Appearance Urine pH Ur Specific [place] Urine Protein Urine Glucose (UA) Urine Ketones Urine Blood Urine Nitrite Ur Leukocyte Esterase Urine RBC Urine WBC Ur Squamous Epith Cells Urine Bacteria Hyaline Casts Stool Occult Blood COVID-19 (ALIYAH) COVID-19 Clin Com Blood Type Antibody Screen Airway Mallampati Class: II TM Dist: >3cm Neck ROM: Full Assessment and Plan Assessment Anesthesia Assessment: Anesthesia Plan Discussed and Chart Reviewed Final Anesthetic Review Family History of Problems with Anesthesia: No History of Problems with Anesthesia: No NPO: Yes ASA Class: II Final Preanesthetic Review: No Changes in Pt Med Stat, Meds/Allgs Chart Revi ewed, Consent Obtained/Reviewed and Anes Risks/Benef Reviewed Patient Risk: Low Procedure Risk: Low Anesthetic Plan Anesthetic Plan: MAC: Disposition: Standard PACU
--- NOTE | 2022-03-16 14:53 | PM.EVENT ---
Event Note Date of Service: 03/16/22 Event Note: Colonoscopy note dictated old blood in colon, no bleeding diverticulosis throughout no polyps or mass lesions mild nonspecific ileitis, bx'd, likely clinically insignificant rec: advance diet ok for discharge
--- NOTE | 2022-03-16 14:56 | P.BOP_ITS ---
Brief Operative Note Date of Service: 03/16/22 Pre-op diagnosis: gi bleed abnormal ct colon Post-op diagnosis: same (ileitis) Procedure: colonoscopy Surgeon: Doc Feng Anesthesia: MAC Was an Concrete Saw Operator used for this Procedure?: No Estimated blood loss (mL): 2 Pathology: other Condition: stable Disposition: PACU
--- NOTE | 2022-03-16 15:00 | PM.EVENT ---
Event Note Date of Service: 03/16/22 Event Note: Addendum to Colonoscopy Report: Further screening is not recommended based on age.
--- NOTE | 2022-03-16 15:40 | P.DS_ITS ---
DS: Providers Provider Date of Service: 03/16/22 Date of admission: 03/14/22 11:44 Primary care physician: Betty Don MD Consults: 03/14/22 11:44 Consult to Gastroenterology Routine Consulting Provider: Doc Feng Reason for consultation: BRBPR, mild blood loss anemia DS: Diagnosis Discharge Diagnosis (1) GI bleed: Status: Acute DS: Summary Hospital Course Hospital Course: history of presenting illness Date of Service: 03/14/22 Chief Complaint: brbpr 81-year-old female with history of moderate persistent asthma, hypertension, hyperlipidemia, nonrheumatic mitral regurgitation, and celiac disease presented to the ED this morning for 3 episodes of bright red blood per rectum.? She reports 3 episodes of soft stool last night and then twice this morning where the stool was maroon in color with several clots.? She does have a history of hemorrhoids but states these have never caused her any issue and she denies any history of rectal bleeding.? She was previously compliant with screening colonoscopy ease and denies any significant polyps.? No family history of colon cancer.? There is no fevers, chills, nausea, vomiting, abdominal pain, diarrhea, constipation, melena.? Denies straining. She does take a baby aspirin daily but denies any other use of blood thinners or NSAIDs.? In the ED, VSS.? WBC 8.1.? H/H 11.9/35.8% (last recorded 12.6/39.0% 07/2021), PLT 158.? PT 13.9, INR 1.2, PTT 41.8.? Renal function electrolyte levels normal.? Stool occult blood positive.? Negative for COVID-19.? Type and screen performed showing B positive blood type.? CT abdomen/pelvis showed diffuse colonic diverticulosis without diverticulitis as well as moderate to significant constipation with mild diffuse annular mural thickening in the mid descending colon with question of stool vers us underlying lesion.? Follow-up colonoscopy recommended with good prep prior to GI studies.? Patient to be observed overnight for blood loss anemia and gastroenterology evaluation. hospital course 81-year-old female with history of moderate persistent asthma, hypertension, hyperlipidemia, nonrheumatic mitral regurgitation, osteopenia and celiac disease to be observed for BRBPR with mild blood loss anemia. #Acute blood loss anemia- patient admitted to medical floor noted to have no recurrence of bright red blood per rectum, H&H dropped a little but remains stable, did not require blood transfusion, CT abdomen and pelvis showed diffuse colonic diverticulosis without diverticulitis as well as moderate to significant constipation with mild diffuse annular mural thickening in the mid descending colon with question of stool versus underlying lesion, patient was seen in consultation by Dr. Feng and underwent colonoscopy for concern for underlying lesion that showed old blood in colon with no active bleeding, diverticulosis, no polyps or mass lesion, mild nonspecific ileitis was noted biopsies taken likely clinically insignificant, GI recommend to discharge patient home, recommend to hold aspirin for 1 week. follow ileal biopsy report with PCP. #HTN- controlled Continue amlodipine #Moderate persistent asthma-Continue advair and albuterol prn #Osteopenia -Continue calcium and vit d #HLD -continue statin Time Spent with Patient Time attestation: Total time spent providing and/or coordinating discharge services: Discharge coordination time: Greater than 30 minutes Quality: Safe Use of Opioids Does Pt have an Active Cancer Diagnosis on the Problem List?: No Quality: Stroke Does the patient have a stroke diagnosis?: No Physical Exam Vital Signs: Vital Signs: Last Vital Signs Temp 97.1 F 03/16/22 15:23 Pulse 65 03/16/22 15:23 Resp 16 03/16/22 15:23 BP 144/53 H 03/16/22 15:23 Pulse Ox 98 03/16/22 15:23 O2 Del Method 03/16/22 15:23 O2 Flow Rate 6 03/16/22 14:53 BMI result Body Mass Index 23.1 Const: Other: Constitutional - Awake and Alert, No apparent distress Cardiovascular - S1S2, RRR, No edema Respiratory - Normal lung expansion, Normal respiratory effort, No respiratory distress, CTA bilaterally Extremities - no swelling Skin - Warm/Dry Neurological - Alert & oriented x3, 5/5 strength BUE and BLE Psychological - Appropriate affect DS: Data Data Completed and Pending Pending studies at discharge: Pending at discharge 03/16/22 14:36 Surgical [PTH] Routine Labs on day of discharge: Laboratory Results - last 24 hr 03/16/22 04:15 WBC 9.8 RBC 3.60 L Hgb 10.3 L Hct 31.6 L MCV 87.8 MCH 28.6 MCHC 32.6 RDW 13.5 Plt Count 147 L MPV 11.4 Immature Gran % (Auto) 0.4 Neut % (Auto) 67.1 Lymph % (Auto) 19.6 L [place] % (Auto) 9.3 Eos % (Auto) 3.0 Baso % (Auto) 0.6 Lymph # (Auto) 1.9 [place] # (Auto) 0.9 Eos # (Auto) 0.3 Baso # (Auto) 0.1 Abs Immat Gran (auto) 0.04 H Absolute Neuts (auto) 6.6 Absolute Nucleated RBC 0.000 Nucleated RBC % (auto) 0.0 Discharge Plan Discharge Patient Disposition: Home, Self-Care Discharge Diagnosis: lower GI bleed Referrals: Betty Don MD [Primary Care Provider] - 1 Week Discharge Medications: Continued amlodipine 2.5 mg tablet 2.5 mg PO DAILY 90 Days Qty: 90 3RF fluticasone propion-salmeterol [Advair Diskus] 100-50 mcg/dose blister with device 1 inh inhalation BID atorvastatin 20 mg tablet 20 mg PO BEDTIME multivitamin Tablet 1 tab PO QAM calcium carbonate-vitamin D3 600 mg-5 mcg (200 unit) Tablet 1 tab PO DAILY albuterol sulfate [ProAir HFA] 90 mcg/actuation Hfa Aerosol Inhaler 1 inh INHALATION QID PRN (Reason: Shortness Of Breath Or Wheezing) melatonin 5 mg Tablet 5 mg PO BEDTIME PRN (Reason: Insomnia) Held aspirin [Adult Low Dose Aspirin] 81 mg tablet,delayed release (DR/EC) 81 mg PO BEDTIME Hold Instructions: Resume on 03/23/22. Discharge Orders: Discharge Order (Routine); Ordered 03/16/22 Ordered By: Uday Carranza Diet: Advance to usual diet Activity on Discharge: As tolerated Stand Alone Forms: Patient Portal Discharge page Care Plan Goals: no cause of GI bleed found, avoid constipation, hold aspirin for 1 week Health Concerns: resume all home medication Plan of Treatment: outpatient follow-up with primary care physician Assessment: as above
--- NOTE | 2022-03-16 15:44 | PC.NURSE ---
report taken from ED and OR. pt arrived to unit, assessed, md informed of pt's elevated BP. per md pt is to be discharged
--- NOTE | 2022-03-16 16:13 | MHC.CM.PN ---
DP: PT MEDICALLY CLEARED FOR DC HOME, NO SERVICES. RN AWARE. DAUGHTER WILL TRANSFER HOME
--- NOTE | 2022-03-17 01:52 | OP_ITS ---
SURGEON: Doc Feng MD INDICATIONS: GI bleeding and abnormal CT scan of the colon. PREOPERATIVE DIAGNOSIS: POSTOPERATIVE DIAGNOSIS: PROCEDURE PERFORMED: Colonoscopy to the terminal ileum with biopsy. ESTIMATED BLOOD LOSS: COMPLICATIONS: ANESTHESIA: Monitored anesthesia care. ASSISTANTS: SPECIMENS: DESCRIPTION OF PROCEDURE :Date of service: 03/16/20. History and physical performed. The risks and benefits of the procedure were explained to the patient. Informed consent was obtained. The patient was placed in left lateral decubitus position. A digital rectal exam was performed and was found to be normal. The Olympus pediatric video colonoscope was introduced into the rectum and advanced to the cecum without difficulty. The cecum was identified by transillumination, palpation, and identification of the ileocecal valve. Examination was performed. The scope was removed. She tolerated the procedure well and was taken to the recovery area in stable condition. FINDINGS: The terminal ileum was examined. There appeared to be patchy ileitis that was nonspecific. This was biopsied. There was some old blood in the colon with no active bleeding or source for bleeding identified. Diverticulosis was present throughout the colon. There was some remaining stool as well, which was washed and suctioned. No mass lesions or polyps were identified. There appeared to be no mucosal abnormalities on the area of interest identified on the CAT scan in the descending colon. Retroflexed examination was normal. IMPRESSION: 1. Ileitis. 2. Diverticulosis. The patient's bleeding was likely related to diverticular disease. RECOMMENDATION: 1. Follow up with the biopsy results. 2. Advance diet. 3. The patient may be discharged when stable. 4. Follow up as needed. No further screening colonoscopies recommended. MD ABELARDO Harris/LOLA / [id number] MTDD
== END 2022-03-16 16:13 | disposition home or self-care (01) ==
LOC: HO.ED 11:49 → HO.EDOVER 11:52 → HO.S3 03-16 14:59
PROVIDERS: Internal Medicine Gastroenterology; Admitting Provider Physician Assistant; Emergency Provider Emergency Medicine; PCP Internal Medicine; Visit Provider Hospitalist
PROC: 0DJD8ZZ Inspection of Lower Intestinal Tract, Via Natural or Artificial Opening Endoscopic (ICD-10-PCS; CPT 45378; principal; 2022-03-16 12:50)
DX: K52.9 Noninfective gastroenteritis and colitis, unspecified (principal); K57.30 Diverticulosis of large intestine without perforation or abscess without bleeding; D62 Acute posthemorrhagic anemia; K64.4 Residual hemorrhoidal skin tags; Z20.822 Contact with and (suspected) exposure to COVID-19; I10 Essential (primary) hypertension; E78.5 Hyperlipidemia, unspecified; Z79.82 Long term (current) use of aspirin; Z79.02 Long term (current) use of antithrombotics/antiplatelets; Z79.899 Other long term (current) drug therapy
CPT/HCPCS: 45380; 36415; 74176; 80048; 81001; 81003; 82272; 82728; 83540; 85025; 85027; 85610; 85730; 86850; 86900; 86901; 87635; 88305; 96374; 99218; 99285

== ENCOUNTER → 2022-03-19 12:46 | Outpatient (REF) | payer MEDICARE, SELFPAY ==
--- NOTE | 2022-03-19 12:49 | CA_ITS ---
Transthoracic Echocardiogram Patient (Last, First, Middle): Kailey Neil M Gender: Female Date of : 1940 Age: 81 Procedure Date: 03/19/2022 Procedure Type: Transthoracic Echocardiogram Location: OP Height: 162.56 cm Weight: 60.33 kg BSA: 1.64 m2 Heart Rate: 59 bpm BP: 134 / 64 mmHg Manager [employer] Alliances: SB Referring MD: Cesario Galeana MD Valve Lapper: Ton Bro MD Symptoms: I34.0 - Nonrheumatic mitral (valve) insufficiency Study Quality: Adequate ECG Rhythm: Bradycardia Conclusions: - 1. Normal LV systolic function with pseudonormal filling pattern 2. Moderately dilated left atrium 3. Mild aortic regurgitation 4. Moderately severe eccentric anteriorly directed jet of mitral regurgitation secondary to posterior mitral valve leaflet prolapse 5. Normal RV systolic pressure 6. No gross pericardial effusion Findings Left Ventricle Normal left ventricular size, thickness, and systolic function. The visually estimated ejection fraction is between 65-70%. Spectral Doppler is indicative of a pseudonormal filling pattern. Right Ventricle Normal right ventricular cavity size and systolic function. Atria The left atrium is moderately dilated. Interatrial shunt cannot be excluded. The right atrium is normal in size. Aortic Valve There is mild calcification of the aortic valve. There is no aortic valve stenosis. There is mild aortic valve regurgitation. Mitral Valve There is mild anterior and moderate posterior mitral leaflet thickening. There is mild posterior mitral leaflet prolapse. There is moderate to severe mitral valve regurgitation. The mitral regurgitation jet is directed anteriorly. There is no mitral valve stenosis. Pulmonic Valve The pulmonic valve is likely normal. There is trace pulmonic valve regurgitation. Tricuspid Valve Normal tricuspid valve structure. There is mild tricuspid valve regurgitation. The right ventricular systolic pressure is normal. The right ventricular systolic pressure is 27 mmHg. Normal right atrial pressure. There is no evidence of pulmonary hypertension. Great Vessels All visible segments of the aorta are normal in size. The pulmonary artery was not well visualized. Venous The inferior vena cava is normal in size and collapses greater than 50% with inspiration. Pericardium/Pleural There is no evidence of pericardial effusion. Prior Study Comparison No significant change compared to prior study dated: 09/17/2021. Measurements 2D Linear Measurements IVSd: 0.77 0.6-0.9/0.6-1.0 cm LVIDd: 4.71 3.9-5.3/4.2-5.9 cm LVIDd Index: 2.87 2.4-3.2/2.2-3.1 cm/m2 LVIDs: 2.87 2.0-3.6 cm LVPWd: 0.62 0.7-1.1 cm LA Diam: 3.50 2.7-3.8/3.0-4.0 cm LAIDs Index: 2.13 1.5-2.3 cm/m2 LV Mass: 128.09 67-162/88-224 g LV Mass Index: 78.10 43-95/49-115 g/m2 LVOT Diam: 2.10 3.0+(-)1.3 cm 2D Systolic Function EF 2C: 68.80 >55% Mitral Valve MV Pk E: 1.42 MV PK A: 0.67 MV Decel Time: 261.00 E/A: 2.10 E'Lateral: 7.72 E'Medial: 5.66 E/E' Med: 25.10 E/E' Lat: 18.40 PHT: 76.00 MVA PHT: 2.89 Decel Cecil: 5.44 MR Vol - PW Dopp: 53.73 MR VTI: 1.99 MR ERO: 27.00 MR Alias Celestine: 0.39 MR RAD: 0.80 Aortic Valve AoV Pk Celestine: 1.68 AoV Mn Celestine: 1.17 AoV VTI: 0.42 AoV Pk Grad: 11.00 Aov Mn Grad: 6.00 DONNA Cont.VTI: 2.37 AI Pk Celestine: 4.13 AI Cecil: 2.28 LVOT LVOT Pk Celestine: 1.25 LVOT Mn Celestine: 0.85 LVOT VTI: 0.29 LVOT Pk Grad: 6.00 LVOT Mn Grad: 4.00 LVOT Diam: 2.10 LVOT Area: 3.46 Diastolic Function MV Pk E: 1.42 MV Pk A: 0.67 E/A: 2.10 E'Medial: 5.66 E/E' Med: 25.10 E' Laterial: 7.72 E/E' Lat: 18.40 Right Ventricle TAPSE (mm): 23.00 TVS' Celestine: 12.90 Tricuspid Valve TR Pk Celestine: 2.43 TR Pk Grad: 24.00 RA Press: 3.00 RVSP: 27.00 Great Vessels Aorta Sinus of Valsalva: 2.90 2.0-3.5 cm Ao Asc: 3.00 2.1-3.4 cm Pulmonary Valve PV Pk Celestine: 1.19 Peak PV Grad: 6.00 Updated in Other Vendor System with Status of Final Ton Bro MD electronically signed on 03/19/2022 2:29:19 PM with status of Final
== END ==
LOC: HO.CARD 12:46
PROVIDERS: PCP Internal Medicine; Visit Provider Internal Medicine
DX: I34.0 Nonrheumatic mitral (valve) insufficiency (principal)
CPT/HCPCS: 93306

== ENCOUNTER 2022-03-27 13:54 | Outpatient (REF) | payer MEDICARE, SELFPAY ==
[2022-03-27 16:51] LABS: MANUAL DIFF FLAG NO
[2022-03-27 16:57] LABS: Basophils Percent Auto 0.4 % (0-2); Eosinophils Absolute Auto 0.2 X10*3/uL (0.0-0.4); Eosinophils Percent Auto 2.2 % (0-4); Hemoglobin 11.2 g/dl (12.0-16.0); Imm Gran Abs Auto 0.04 X10*3/uL (0.00-0.03); Imm Gran Pct Auto 0.4 % (0.0-0.4); Lymphocytes Absolute Auto 1.9 X10*3/uL (1.2-4.9); Lymphocytes Percent Auto 19.4 % (20-40); Mean Corpuscular Hemoglobin 28.4 pg (27.0-33.0); Mean Corpuscular Volume 88.6 fL (80.0-98.0); Mean Platelet Volume 12.4 fL (9.4-12.3); Monocytes Absolute Auto 0.8 X10*3/uL (0.1-1.2); Monocytes Percent Auto 8.4 % (2-11); Neutrophils Absolute Auto 6.9 x10*3/uL (2.0-8.3); Neutrophils Percent Auto 69.2 % (45-73); Platelet Count 188 X10*3/uL (160-400); Red Blood Count 3.95 X10*6/uL (4.20-5.50); Red Cell Distribution Width 13.5 % (11.0-16.0); White Blood Count 9.9 X10*3/uL (4.8-10.8)
[2022-03-27 17:05] LABS: Iron 45 mcg/dL (30-160); Percent Iron Saturation 12 % (15-50); Total Iron Binding Capacity 369 mcg/dL (228-428); Unsaturated Iron Binding 324 ug/dL
[2022-03-27 17:42] LABS: Folate 19.4 ng/mL (> or = 4.0); Vitamin B12 746 pg/mL (200-900)
== END 2022-03-27 13:55 | disposition home or self-care (01) ==
LOC: HO.HMGCLDS 13:54
PROVIDERS: PCP Internal Medicine; Visit Provider Internal Medicine
DX: K62.5 Hemorrhage of anus and rectum (principal)
CPT/HCPCS: 36415; 82607; 82746; 83540; 85025

== ENCOUNTER → 2022-03-31 12:35 | Outpatient (BNVA) | payer MEDICARE, SELFPAY | PROVIDERS: PCP Internal Medicine; Referring Provider Internal Medicine; Visit Provider Internal Medicine | DX: I34.0 Nonrheumatic mitral (valve) insufficiency (principal); I10 Essential (primary) hypertension; Z79.899 Other long term (current) drug therapy | CPT/HCPCS: 99212 ==

== ENCOUNTER 2022-06-23 09:34 | Outpatient (REF) | payer MEDICARE, SELFPAY ==
--- NOTE | ~2022-06-23 | XR_ITS ---
EXAMINATION: XR WRIST, LEFT CLINICAL INFORMATION: Pain left wrist COMPARISON: None TECHNIQUE: PA, lateral, and oblique views of the left wrist. FINDINGS: There is a distal radial: These fracture with mild dorsal angulation. No additional fracture seen. There is diffuse osteopenia. The soft tissues are normal. XR/XR wrist LT min 3V IMPRESSION: 1. Distal radial fracture with mild dorsal angulation. Mild soft tissue swelling. 2. There is diffuse osteopenia.:
== END 2022-06-23 09:35 | disposition home or self-care (01) ==
LOC: HO.HOSX 09:34
PROVIDERS: Visit Provider Orthopaedic Surgery
DX: S52.502A Unspecified fracture of the lower end of left radius, initial encounter for closed fracture (principal); S52.615A Nondisplaced fracture of left ulna styloid process, initial encounter for closed fracture
CPT/HCPCS: 73110; 99202

== ENCOUNTER 2022-07-21 10:16 | Outpatient (REF) | payer MEDICARE, SELFPAY ==
--- NOTE | ~2022-07-21 | XR_ITS ---
EXAMINATION: XR WRIST, LEFT CLINICAL INFORMATION: Pain COMPARISON: Left wrist x-rays 06/23/2022 TECHNIQUE: PA, lateral, and oblique views of the left wrist. FINDINGS: Diffuse osteopenia. Redemonstration of a distal radial fracture demonstrating similar dorsal angulation. I do not appreciate any interval callus formation. Also noted is an ulnar styloid fracture. There is mild soft tissue swelling of the wrist. XR/XR wrist LT min 3V IMPRESSION: Similar appearance of distal radial and ulnar fractures.
== END 2022-07-21 10:17 | disposition home or self-care (01) ==
LOC: HO.HOSX 10:16
PROVIDERS: Visit Provider Orthopaedic Surgery
DX: S52.502D Unspecified fracture of the lower end of left radius, subsequent encounter for closed fracture with routine healing (principal); S52.615D Nondisplaced fracture of left ulna styloid process, subsequent encounter for closed fracture with routine healing; W19.XXXD Unspecified fall, subsequent encounter; Y93.59 Activity, other involving other sports and athletics played individually; Y92.9 Unspecified place or not applicable; Y99.9 Unspecified external cause status
CPT/HCPCS: 73110

== ENCOUNTER 2022-08-07 08:21 | Outpatient (REF) | payer MEDICARE, SELFPAY ==
[2022-08-07 11:33] LABS: MANUAL DIFF FLAG NO
[2022-08-07 11:57] LABS: Basophils Absolute Auto 0.1 X10*3/uL (0.0-0.2); Basophils Percent Auto 0.6 % (0-2); Eosinophils Absolute Auto 0.3 X10*3/uL (0.0-0.4); Eosinophils Percent Auto 3.3 % (0-4); Hematocrit 36.2 % (37.0-47.0); Hemoglobin 11.5 g/dl (12.0-16.0); Imm Gran Abs Auto 0.01 X10*3/uL (0.00-0.03); Imm Gran Pct Auto 0.1 % (0.0-0.4); Lymphocytes Absolute Auto 1.9 X10*3/uL (1.2-4.9); Lymphocytes Percent Auto 24.3 % (20-40); Mean Corpuscular HGB Conc 31.8 g/dl (31.0-35.0); Mean Corpuscular Hemoglobin 27.4 pg (27.0-33.0); Mean Corpuscular Volume 86.2 fL (80.0-98.0); Mean Platelet Volume 12.9 fL (9.4-12.3); Monocytes Absolute Auto 0.8 X10*3/uL (0.1-1.2); Neutrophils Absolute Auto 4.8 x10*3/uL (2.0-8.3); Neutrophils Percent Auto 61.7 % (45-73); Platelet Count 182 X10*3/uL (160-400); Red Cell Distribution Width 14.6 % (11.0-16.0); White Blood Count 7.8 X10*3/uL (4.8-10.8)
[2022-08-07 12:29] LABS: Alanine Aminotransferase 17 U/L (0-31); Albumin Level 3.8 g/dL (3.5-5.0); Alkaline Phosphatase 41 U/L (39-117); Anion Gap 8 (12-20); Aspartate Amino Transferase 25 U/L (5-31); Bilirubin Total 0.6 mg/dL (0.0-1.0); Blood Urea Nitrogen 14 mg/dL (9-16); Calcium 9.1 mg/dL (8.4-10.2); Carbon Dioxide 29 mmol/L (22-29); Chloride 107 mmol/L (96-108); Cholesterol 150 mg/dL; Estimated Glomerular Filt Rate > 60; Glucose Fasting 93 mg/dL (60-99); HDL Cholesterol 71 mg/dL; Iron 35 mcg/dL (30-160); LDL Cholesterol Calculated 71 mg/dl; Percent Iron Saturation 11 % (15-50); Potassium 4.1 mmol/L (3.3-5.1); Sodium 140 mmol/L (135-145); Total Iron Binding Capacity 317 mcg/dL (228-428); Total Protein 6.8 g/dL (6.5-8.0); Triglycerides 41 mg/dL; Unsaturated Iron Binding 282 ug/dL
[2022-08-07 12:52] LABS: Vitamin D 25-OH Total 74.6 ng/mL (>30)
== END 2022-08-07 08:22 | disposition home or self-care (01) ==
LOC: HO.HMGCLDS 08:21
PROVIDERS: PCP Internal Medicine; Visit Provider Internal Medicine
DX: D64.9 Anemia, unspecified (principal); E78.5 Hyperlipidemia, unspecified; I10 Essential (primary) hypertension
CPT/HCPCS: 36415; 80053; 80061; 82306; 83540; 85025

== ENCOUNTER 2022-08-19 11:29 | Emergency (ER) | payer MEDICARE, SELFPAY ==
--- NOTE | ~2022-08-19 | XR_ITS ---
EXAMINATION: XR ELBOW, LEFT CLINICAL INFORMATION: Pain COMPARISON: None available. TECHNIQUE: AP, lateral, and oblique views of the left elbow. FINDINGS: There is a vertical lucency seen only on oblique view of the medial epicondyle, which may reflect a nondisplaced fracture in the appropriate clinical setting. No large effusion. Joint spaces are otherwise preserved. XR/XR elbow LT min 3V IMPRESSION: There is a vertical lucency seen only on oblique view of the medial epicondyle, which may reflect a nondisplaced fracture in the appropriate clinical setting. Correlate with point tenderness. No large effusion.
--- NOTE | ~2022-08-19 | CT_ITS ---
EXAMINATION: CT HEAD AND FACIAL BONES WITHOUT CONTRAST CLINICAL INFORMATION: Fall head strike COMPARISON: None TECHNIQUE: Contiguous axial imaging was performed from the skull base to vertex and facial bones without intravenous administration of contrast. This CT examination was performed using dose optimization techniques as appropriate, variously including the following: *Automated exposure control *Adjustment of mA and/or kV according to patient size (this includes techniques or standardized protocols for targeted exams where dose is matched to indication/reason for exam; i.e. extremities or head) *Use of iterative reconstruction technique DLP: 990 mGy-cm FINDINGS: There is no evidence of acute intracranial hemorrhage or territorial infarction. Chronic white matter small vessel ischemic changes. No abnormal mass effect or midline shift is seen. Catalan to white matter differentiation is well preserved. No extra-axial fluid collections are identified. The ventricles are normal in size. There is no abnormal attenuation within the brain parenchyma. Suggestion of a nondisplaced fracture involving the anterior and posterior left maxillary sinus with overlying soft tissue swelling. Mucoperiosteal thickening of the bilateral maxillary sinus. The mastoid air cells and visualized portions of the paranasal sinuses are well aerated. CT/CT cervical spine wo IV con IMPRESSION: 1. No acute intracranial pathology. 2. Chronic white matter small vessel ischemic changes. 3. Suggestion of a nondisplaced fracture involving the anterior and posterior left maxillary sinus with overlying soft tissue swelling. EXAMINATION: Noncontrast CT scan of the cervical spine. INDICATION: Fall head strike COMPARISON: None. TECHNIQUE: Helical, multidetector axial images were obtained from the occiput to the upper thorax. Coronal and sagittal reformats of the cervical spine were provided for interpretation. DLP: 990 mGy-cm FINDINGS: No acute fractures or dislocations of the cervical spine are seen. Multilevel degenerative changes. Anatomic alignment and positioning of the vertebral bodies and posterior elements is noted. The atlantoaxial joint and craniovertebral articulations are normal without evidence of subluxation. There is no prevertebral soft tissue swelling. Nodular focus versus scarring involving the right lung apex measuring 0.9 cm (series 12, image 288). IMPRESSION: 1. No acute visible fracture or dislocation. 2. Multilevel degenerative changes. 3. Nodular focus versus scarring involving the right lung apex measuring 0.9 cm (series 12, image 288). Follow-up as per Fleischner criteria. Various management parameters for solitary pulmonary nodules are in the literature. According to the Fleischner Society, recommendations for pulmonary nodules are as follows: According to the UPDATED 2017 Fleischner Society recommendations, the advised follow-up imaging for a single solid nodule measuring 8 mm or greater is: Consider CT, PET/CT, or tissue sampling at 3 months.
--- NOTE | ~2022-08-19 | XR_ITS ---
EXAMINATION: XR WRIST, LEFT CLINICAL INFORMATION: Pain COMPARISON: 07/21/2022 TECHNIQUE: PA, lateral, and oblique views of the left wrist. FINDINGS: Redemonstration of distal impacted radial fracture with dorsal angulation of the distal fracture fragment. There is mild increased sclerosis suggestive of some interval healing. Ulnar styloid avulsion fracture again noted. Scaphoid appears intact. XR/XR wrist LT min 3V IMPRESSION: Redemonstration of distal impacted radial fracture with dorsal angulation of the distal fracture fragment. There is mild increased sclerosis suggestive of some interval healing.
[2022-08-19 11:57] VITALS: BP 149/62; PULSE 70; RESP 18; TEMP 36.1; O2SAT 98; BMI 22.3
--- NOTE | 2022-08-19 11:59 | ED_ITS ---
HPI - Fall General Chief Complaint: Fall <FABRICIO Brambila - Last Filed: 08/19/22 12:00> Stated Complaint: L eye injury, fall <FABRICIO Brambila - Last Filed: 08/19/22 12:00> Time Seen by Provider: 08/19/22 16:07 <FABRICIO Brambila - Last Filed: 08/19/22 12:00> Source: patient, RN notes reviewed and old records reviewed <Edis Hernandes - Last Filed: 08/19/22 18:04> Mode of arrival: ambulatory <Edis Hernandes - Last Filed: 08/19/22 18:04> Limitations: no limitations <Edis Hernandes - Last Filed: 08/19/22 18:04> History of Present Illness HPI Narrative: 82-year-old female with past medical history significant for asthma, osteoporosis, hypertension, hyperlipidemia presents for evaluation after a fall The patient reports that she was on a daily walk when she tripped over his shoe laces and fell face forward She struck her face just above her left eye. She did not lose consciousness She also injured her left elbow and left wrist while trying to break her fall She complains of pain to the left side of the face in the area of the left orbit The patient is on aspirin but no anticoagulation She rates her discomfort as 7/10 Denies any blurry vision <Edis Hernandes - Last Filed: 08/19/22 18:04> Related Data Home Medications: Home Medications Medication Instructions Recorded Confirmed calcium carbonate 600 mg-vitamin 1 tab PO DAILY 03/14/22 08/05/22 D3 5 mcg (200 unit) tablet fluticasone 100 mcg-salmeterol 50 1 inh inhalation BID 03/14/22 08/05/22 mcg/dose blistr powdr for inhalation (Advair Diskus) melatonin 5 mg tablet 5 mg PO BEDTIME PRN Insomnia 03/14/22 08/05/22 multivitamin 1 tab PO QAM 03/14/22 08/05/22 cholecalciferol (vitamin D3) 25 25 mcg PO DAILY 08/05/22 08/05/22 mcg (1,000 unit) capsule Previous Rx's Medication Instructions Recorded atorvastatin 20 mg tablet 20 mg PO BEDTIME #90 tabs 05/05/22 amlodipine 2.5 mg tablet 2.5 mg PO DAILY 90 days #90 tabs 05/18/22 albuterol sulfate 90 mcg/actuation 1 inh inhalation QID PRN Shortness 08/05/22 aerosol inhaler (ProAir HFA) Of Breath Or Wheezing #8.5 grams amoxicillin 500 mg tablet 500 mg PO TID #15 tabs 08/19/22 <FABRICIO Brambila - Last Filed: 08/19/22 12:00> Allergies/Adverse Reactions: Allergies Allergy/AdvReac Type Severity Reaction Status Date / Time cat dander [CATS] Allergy Severe DIFFICULTY Verified 08/05/22 11:29 BREATHING gluten Allergy Severe unk Uncoded 08/05/22 11:29 <FABRICIO Brambila - Last Filed: 08/19/22 12:00> Review of Systems Constitutional: Constitutional: Reports as per HPI, Denies chills, Denies fatigue, Denies fever(s) and Denies headache(s) <Edis Hernandes - Last Filed: 08/19/22 18:04> Eyes: Eyes: Denies blurry vision, Denies exophthalmos and Reports eye pain <Edis Hernandes - Last Filed: 08/19/22 18:04> ENT: Denies headache(s) <Edis Hernandes - Last Filed: 08/19/22 18:04> Cardiovascular: Cardiovascular: Denies chest pain and Denies dyspnea <Edis Hernandes - Last Filed: 08/19/22 18:04> Respiratory: Respiratory: Denies cough and Denies dyspnea <Edis Hernandes - Last Filed: 08/19/22 18:04> Gastrointestinal: Gastrointestinal: Denies abdominal pain, Denies constipation and Denies vomiting <Edis Hernandes - Last Filed: 08/19/22 18:04> Genitourinary: Genitourinary: Denies dysuria <Edis Hernandes - Last Filed: 08/19/22 18:04> Musculoskeletal: Musculoskeletal: Reports arthralgias and Reports joint swelling <Edis Hernandes - Last Filed: 08/19/22 18:04> Neurologic: Denies headache(s) and Denies focal weakness <Edis Hernandes - Last Filed: 08/19/22 18:04> Endocrine: Endocrine: Denies fatigue <Edis Hernandes - Last Filed: 08/19/22 18:04> [facility] Past Medical History Medical History: Medical History (Updated 08/19/22 @ 17:58 by Edis Hernandes) Annual physical exam Asthma Celiac sprue HTN (hypertension) Hyperlipidemia Non-rheumatic mitral regurgitation Osteoporosis Prolapse of female pelvic organs Vitamin D deficiency <FABRICIO Brambila - Last Filed: 08/19/22 12:00> Surgical History: Surgical History H/O colonoscopy Hx of cataract extraction <FABRICIO Brambila - Last Filed: 08/19/22 12:00> Family History Family History: Family History Father CVD (cardiovascular disease) Mother Oral cancer Brother Myocardial infarction <FABRICIO Brambila - Last Filed: 08/19/22 12:00> Social History Social History: Social History Housing: Apartment Alcohol intake: current Alcohol intake frequency: holidays/special occasions only Patient Tobacco Use Status: Former Tobacco user Quit Date: 1969 e-Cigarette/Vaping Use: Never Used Advance Directives: Yes Advance Directives Information Provided: No Advance Directives on File: No Advance Directives Date on File: 03/16/22 service: No 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al status: retired 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 Cognitive needs: No Hearing needs: No Vision needs: Yes <FABRICIO Brambila - Last Filed: 08/19/22 12:00> Physical Exam Vital Signs: Vital Signs: Last Vital Signs Temp 98.0 F 08/19/22 16:22 Pulse 60 08/19/22 16:22 Resp 16 08/19/22 16:22 BP 156/65 H 08/19/22 16:22 Pulse Ox 98 08/19/22 16:22 O2 Del Method Room Air 08/19/22 16:22 BMI result Body Mass Index 22.3 <FABRICIO Brambila - Last Filed: 08/19/22 12:00> Vital Signs: Last Vital Signs Temp 98.0 F 08/19/22 16:22 Pulse 60 08/19/22 16:22 Resp 16 08/19/22 16:22 BP 156/65 H 08/19/22 16:22 Pulse Ox 98 08/19/22 16:22 O2 Del Method Room Air 08/19/22 16:22 BMI result Body Mass Index 22.3 <Edis OJimbo - Last Filed: 08/19/22 18:04> Const: General: healthy appearing, comfortable, no acute distress, alert and awake <Edis CelsaMccormick - Last Filed: 08/19/22 18:04> Nutritional Appearance: well nourished <Edis - Last Filed: 08/19/22 18:04> Orientation/consciousness: patient oriented x3 <Edis Celsa - Last Filed: 08/19/22 18:04> HEENT: Other: Significant left periorbital ecchymosis and edema. Patient is tender in the left lateral/temporal orbital wall. No step-offs or deformities. <Edis CelsaJimbo - Last Filed: 08/19/22 18:04> Head: Yes normocephalic and No atraumatic <Edis - Last Filed: 08/19/22 18:04> Eyes: Periorbital: periorbital findings abnormal (See above for traumatic ecchymosis) <Edis OJimbo - Last Filed: 08/19/22 18:04> Conjunctivae: conjunctival abnormal (Left subconjunctival hemorrhage) <Edis OMccormick - Last Filed: 08/19/22 18:04> Pupils: Equal, round and reactive pupils present <Edis OJimbo - Last Filed: 08/19/22 18:04> EOM: EOMs intact bilaterally (In all cardinal directions without entrapment or nystagmus) <Edis Last Filed: 08/19/22 18:04> Neck: Neck: Yes full ROM <Edis OJimbo - Last Filed: 08/19/22 18:04> Resp: Effort & Inspection: normal respiratory effort, able to speak in complete sentences, no audible wheezes and not labored <Edis SteenJimbo - Last Filed: 08/19/22 18:04> Auscultation: clear to auscultation bilaterally <Edis OJimbo - Last Filed: 08/19/22 18:04> Cardio: Rate: regular rate < Last Filed: 08/19/22 18:04> Rhythm: regular rhythm < Last Filed: 08/19/22 18:04> GI: Inspection: No distended < Filed: 08/19/22 18:04> Palpation (GI): Soft to palpation, not firm, nontender, no guarding and not rigid <Edis Celsa Last Filed: 08/19/22 18:04> Auscultation: normoactive bowel sounds <Edis Celsa Filed: 08/19/22 18:04> Skin: General skin exam: no rashes or lesions noted and elasticity normal <Edis O Last Filed: 08/19/22 18:04> Neuro: General: patient oriented x3 <Edis O Last Filed: 08/19/22 18:04> Cranial nerves: Yes CN's II-XII intact bilaterally, Yes Equal, round and reactive pupils present and Yes Bilaterally intact EOM present <Edis OMccormick - Last Filed: 08/19/22 18:04> Cognition (Neuro): normal cognition <Edis O Last Filed: 08/19/22 18:04> Extrem: Other: Mild edema with ecchymosis to the left elbow. The patient does have full range of motion with flexion, extension, pronation supination. She has mild edema with ecchymosis to the dorsal surface of the left wrist without significant tenderness. Full range of motion of the left wrist. <Edis SteenMccormick - Last Filed: 08/19/22 18:04> Course Course Course Narrative: This is an RME: Additional HPI, ROS, PE not included below will be deferred to primary provider. 82-year-old female presents status post trip and fall at the [facility], patient tripped on shoelaces falling hitting her face onto the cement ground, no LOC, presents with left eye pain and swelling, this happened prior to arrival. On ASA On exam extraocular movements intact and pain-free. There is left-sided periorbital ecchymosis and swelling. TTP to left zygomatic region. Concerns for orbital fx. CT of head, neck and facial bones ordered. <FABRICIO Brambila - Last Filed: 08/19/22 12:00> Reevaluation(s) Reevaluation #1: CT of the brain, cervical spine maxillofacial bones are only significant for an acute left maxillary sinus fracture. This is nondisplaced. She also has x-rays significant for a lucency over the left lateral epicondyle concerning for possible fracture. The patient does have trauma to this area and minimal tenderness. She has good range of motion. Will put the patient in the sling and she will follow-up with orthopedics for this. Will discharge the patient with amoxicillin for the sinus fracture and she will follow-up with Oral maxillofacial surgery. Discussed all results with the patient. Visual acuity testing actually showed better acuity in the affected eye than the right eye. <Edis Hernandes - Last Filed: 08/19/22 18:04> Time: 17:56 <Edis Hernandes - Last Filed: 08/19/22 18:04> Medical Decision Making Medical Decision Making MDM Narrative: 82-year-old female presents for evaluation after a trip and fall. She has traumatic injury to the left periorbital region as well as left wrist and left elbow. Patient has no C-spine tenderness. However given history of osteoporosis and traumatic fall with CT scan of the brain, cervical spine and facial bones. Is reassuring the patient has intact extraocular motions without entrapment. Will get a visual acuity test as well. Patient has ecchymosis and edema to the left elbow and dorsal surface of left wrist, get x-rays of these areas. <Edis Hernandes - Last Filed: 08/19/22 18:04> Differential Diagnosis Facial fracture intracranial hemorrhage Cervical fracture Contusion Wrist fracture Elbow fracture <Edis Hernandes - Last Filed: 08/19/22 18:04> Lab Data Result Diagrams: 08/19/22 12:24 08/19/22 12:24 <FABRICIO Brambila - Last Filed: 08/19/22 12:00> Labs: Lab Results 08/19/22 08/19/22 08/19/22 Range/Units 12:24 12:24 12:24 WBC 9.8 (4.8-10.8) X10*3/uL RBC 4.40 (4.20-5.50) X10*6/uL Hgb 11.9 L (12.0-16.0) g/dl Hct 37.1 (37.0-47.0) % MCV 84.3 (80.0-98.0) fL MCH 27.0 (27.0-33.0) pg MCHC 32.1 (31.0-35.0) g/dl RDW 14.6 (11.0-16.0) % Plt Count 149 L (160-400) X10*3/uL MPV 12.4 H (9.4-12.3) fL Immature Gran % (Auto) 0.3 (0.0-0.4) % Neut % (Auto) 78.1 H (45-73) % Lymph % (Auto) 11.9 L (20-40) % Hutchinson % (Auto) 7.8 (2-11) % Eos % (Auto) 1.4 (0-4) % Baso % (Auto) 0.5 (0-2) % Lymph # (Auto) 1.2 (1.2-4.9) X10*3/uL Hutchinson # (Auto) 0.8 (0.1-1.2) X10*3/uL Eos # (Auto) 0.1 (0.0-0.4) X10*3/uL Baso # (Auto) 0.1 (0.0-0.2) X10*3/uL Abs Immat Gran (auto) 0.03 (0.00-0.03) X10*3/uL Absolute Neuts (auto) 7.7 (2.0-8.3) x10*3/uL Absolute Nucleated RBC 0.000 (0.0-0.012) X10*3/uL Nucleated RBC % (auto) 0.0 (0.0-0.2) /100WBC PT 12.1 (10.0-13.1) SEC INR 1.1 (0.9-1.1) Sodium 141 (135-145) mmol/L Potassium 4.7 (3.3-5.1) mmol/L Chloride 106 (96-108) mmol/L Carbon Dioxide 27 (22-29) mmol/L Anion Gap 13 (12-20) BUN 15 (9-16) mg/dL Creatinine 0.71 (0.5-1.4) mg/dL Estim Creat Clear Calc 53.6 Estimated GFR > 60 Random Glucose 102 (60-115) mg/dL Calcium 9.7 D (8.4-10.2) mg/dL Magnesium 1.8 (1.6-2.6) mg/dL Total Bilirubin 0.5 (0.0-1.0) mg/dL AST 26 (5-31) U/L ALT 18 (0-31) U/L Alkaline Phosphatase 42 (39-117) U/L Total Protein 7.3 (6.5-8.0) g/dL Albumin 4.0 (3.5-5.0) g/dL COVID-19 (ALIYAH) (Negative) COVID-19 Clin Com 08/19/22 Range/Units 12:24 WBC (4.8-10.8) X10*3/uL RBC (4.20-5.50) X10*6/uL Hgb (12.0-16.0) g/dl Hct (37.0-47.0) % MCV (80.0-98.0) fL MCH (27.0-33.0) pg MCHC (31.0-35.0) g/dl RDW (11.0-16.0) % Plt Count (160-400) X10*3/uL MPV (9.4-12.3) fL Immature Gran % (Auto) (0.0-0.4) % Neut % (Auto) (45-73) % Lymph % (Auto) (20-40) % Hutchinson % (Auto) (2-11) % Eos % (Auto) (0-4) % Baso % (Auto) (0-2) % Lymph # (Auto) (1.2-4.9) X10*3/uL Hutchinson # (Auto) (0.1-1.2) X10*3/uL Eos # (Auto) (0.0-0.4) X10*3/uL Baso # (Auto) (0.0-0.2) X10*3/uL Abs Immat Gran (auto) (0.00-0.03) X10*3/uL Absolute Neuts (auto) (2.0-8.3) x10*3/uL Absolute Nucleated RBC (0.0-0.012) X10*3/uL Nucleated RBC % (auto) (0.0-0.2) /100WBC PT (10.0-13.1) SEC INR (0.9-1.1) Sodium (135-145) mmol/L Potassium (3.3-5.1) mmol/L Chloride (96-108) mmol/L Carbon Dioxide (22-29) mmol/L Anion Gap (12-20) BUN (9-16) mg/dL Creatinine (0.5-1.4) mg/dL Estim Creat Clear Calc Estimated GFR Random Glucose (60-115) mg/dL Calcium (8.4-10.2) mg/dL Magnesium (1.6-2.6) mg/dL Total Bilirubin (0.0-1.0) mg/dL AST (5-31) U/L ALT (0-31) U/L Alkaline Phosphatase (39-117) U/L Total Protein (6.5-8.0) g/dL Albumin (3.5-5.0) g/dL COVID-19 (ALIYAH) Negative (Negative) COVID-19 Clin Com See Note <FABRICIO Brambila - Last Filed: 08/19/22 12:00> Lab Results 08/19/22 08/19/22 08/19/22 Range/Units 12:24 12:24 12:24 WBC 9.8 (4.8-10.8) X10*3/uL RBC 4.40 (4.20-5.50) X10*6/uL Hgb 11.9 L (12.0-16.0) g/dl Hct 37.1 (37.0-47.0) % MCV 84.3 (80.0-98.0) fL MCH 27.0 (27.0-33.0) pg MCHC 32.1 (31.0-35.0) g/dl RDW 14.6 (11.0-16.0) % Plt Count 149 L (160-400) X10*3/uL MPV 12.4 H (9.4-12.3) fL Immature Gran % (Auto) 0.3 (0.0-0.4) % Neut % (Auto) 78.1 H (45-73) % Lymph % (Auto) 11.9 L (20-40) % Hutchinson % (Auto) 7.8 (2-11) % Eos % (Auto) 1.4 (0-4) % Baso % (Auto) 0.5 (0-2) % Lymph # (Auto) 1.2 (1.2-4.9) X10*3/uL Hutchinson # (Auto) 0.8 (0.1-1.2) X10*3/uL Eos # (Auto) 0.1 (0.0-0.4) X10*3/uL Baso # (Auto) 0.1 (0.0-0.2) X10*3/uL Abs Immat Gran (auto) 0.03 (0.00-0.03) X10*3/uL Absolute Neuts (auto) 7.7 (2.0-8.3) x10*3/uL Absolute Nucleated RBC 0.000 (0.0-0.012) X10*3/uL Nucleated RBC % (auto) 0.0 (0.0-0.2) /100WBC PT 12.1 (10.0-13.1) SEC INR 1.1 (0.9-1.1) Sodium 141 (135-145) mmol/L Potassium 4.7 (3.3-5.1) mmol/L Chloride 106 (96-108) mmol/L Carbon Dioxide 27 (22-29) mmol/L Anion Gap 13 (12-20) BUN 15 (9-16) mg/dL Creatinine 0.71 (0.5-1.4) mg/dL Estim Creat Clear Calc 53.6 Estimated GFR > 60 Random Glucose 102 (60-115) mg/dL Calcium 9.7 D (8.4-10.2) mg/dL Magnesium 1.8 (1.6-2.6) mg/dL Total Bilirubin 0.5 (0.0-1.0) mg/dL AST 26 (5-31) U/L ALT 18 (0-31) U/L Alkaline Phosphatase 42 (39-117) U/L Total Protein 7.3 (6.5-8.0) g/dL Albumin 4.0 (3.5-5.0) g/dL COVID-19 (ALIYAH) (Negative) COVID-19 Clin Com 08/19/22 Range/Units 12:24 WBC (4.8-10.8) X10*3/uL RBC (4.20-5.50) X10*6/uL Hgb (12.0-16.0) g/dl Hct (37.0-47.0) % MCV (80.0-98.0) fL MCH (27.0-33.0) pg MCHC (31.0-35.0) g/dl RDW (11.0-16.0) % Plt Count (160-400) X10*3/uL MPV (9.4-12.3) fL Immature Gran % (Auto) (0.0-0.4) % Neut % (Auto) (45-73) % Lymph % (Auto) (20-40) % Hutchinson % (Auto) (2-11) % Eos % (Auto) (0-4) % Baso % (Auto) (0-2) % Lymph # (Auto) (1.2-4.9) X10*3/uL Hutchinson # (Auto) (0.1-1.2) X10*3/uL Eos # (Auto) (0.0-0.4) X10*3/uL Baso # (Auto) (0.0-0.2) X10*3/uL Abs Immat Gran (auto) (0.00-0.03) X10*3/uL Absolute Neuts (auto) (2.0-8.3) x10*3/uL Absolute Nucleated RBC (0.0-0.012) X10*3/uL Nucleated RBC % (auto) (0.0-0.2) /100WBC PT (10.0-13.1) SEC INR (0.9-1.1) Sodium (135-145) mmol/L Potassium (3.3-5.1) mmol/L Chloride (96-108) mmol/L Carbon Dioxide (22-29) mmol/L Anion Gap (12-20) BUN (9-16) mg/dL Creatinine (0.5-1.4) mg/dL Estim Creat Clear Calc Estimated GFR Random Glucose (60-115) mg/dL Calcium (8.4-10.2) mg/dL Magnesium (1.6-2.6) mg/dL Total Bilirubin (0.0-1.0) mg/dL AST (5-31) U/L ALT (0-31) U/L Alkaline Phosphatase (39-117) U/L Total Protein (6.5-8.0) g/dL Albumin (3.5-5.0) g/dL COVID-19 (ALIYAH) Negative (Negative) COVID-19 Clin Com See Note <Edis Hernandes - Last Filed: 08/19/22 18:04> Discharge Plan Discharge Clinical Impression: Maxillary sinus fracture, Left elbow fracture <FABRICIO Brambila - Last Filed: 08/19/22 12:00> Patient Disposition: Home, Self-Care <FABRICIO Brambila - Last Filed: 08/19/22 12:00> Instructions: Facial Fracture (ED) <FABRICIO Brambila - Last Filed: 08/19/22 12:00> Additional Instructions: Your imaging showed a likely maxillary sinus fracture that is nondisplaced. You should follow-up with the [facility] back at [phone]. This is an oral maxillofacial surgery office. Take amoxicillin 3 times daily for the next 5 days to prevent a sinus infection. Your x-ray showed a possible left elbow fracture. Wear the sling when your out about for the day but you may take it off at night and while you are resting. Follow-up with Orthopedics, Dr. Nazario at the number provided. Your CT scan also showed a right lung nodule at the apex. It is recommended that you have a repeat CT scan in approximately 3 months to evaluate for stability <FABRICIO Brambila - Last Filed: 08/19/22 12:00> Prescriptions: New amoxicillin 500 mg tablet 500 mg PO TID Qty: 15 0RF No Action atorvastatin 20 mg tablet 20 mg PO BEDTIME Qty: 90 3RF amlodipine 2.5 mg tablet 2.5 mg PO DAILY 90 Days Qty: 90 3RF fluticasone propion-salmeterol [Advair Diskus] 100-50 mcg/dose blister with device 1 inh inhalation BID multivitamin Tablet 1 tab PO QAM calcium carbonate-vitamin D3 600 mg-5 mcg (200 unit) Tablet 1 tab PO DAILY melatonin 5 mg Tablet 5 mg PO BEDTIME PRN (Reason: Insomnia) cholecalciferol (vitamin D3) 25 mcg (1,000 unit) capsule 25 mcg PO DAILY albuterol sulfate [ProAir HFA] 90 mcg/actuation HFA aerosol inhaler 1 inh INHALATION QID PRN (Reason: Shortness Of Breath Or Wheezing) Qty: 8.5 2RF <FABRICIO Brambila - Last Filed: 08/19/22 12:00> Referrals: Babar Nazario MD [Physician] - (? left elbow fracture) <FABRICIO Brambila - Last Filed: 08/19/22 12:00>
[2022-08-19 12:28] LABS: MANUAL DIFF FLAG NO
[2022-08-19 12:32] LABS: Basophils Absolute Auto 0.1 X10*3/uL (0.0-0.2); Basophils Percent Auto 0.5 % (0-2); Eosinophils Absolute Auto 0.1 X10*3/uL (0.0-0.4); Eosinophils Percent Auto 1.4 % (0-4); Hematocrit 37.1 % (37.0-47.0); Hemoglobin 11.9 g/dl (12.0-16.0); Imm Gran Abs Auto 0.03 X10*3/uL (0.00-0.03); Imm Gran Pct Auto 0.3 % (0.0-0.4); Lymphocytes Absolute Auto 1.2 X10*3/uL (1.2-4.9); Lymphocytes Percent Auto 11.9 % (20-40); Mean Corpuscular HGB Conc 32.1 g/dl (31.0-35.0); Mean Corpuscular Volume 84.3 fL (80.0-98.0); Mean Platelet Volume 12.4 fL (9.4-12.3); Monocytes Absolute Auto 0.8 X10*3/uL (0.1-1.2); Monocytes Percent Auto 7.8 % (2-11); Neutrophils Absolute Auto 7.7 x10*3/uL (2.0-8.3); Neutrophils Percent Auto 78.1 % (45-73); Platelet Count 149 X10*3/uL (160-400); Red Cell Distribution Width 14.6 % (11.0-16.0); White Blood Count 9.8 X10*3/uL (4.8-10.8)
[2022-08-19 12:43] LABS: INTERNATIONAL NORM RATIO 1.1 (0.9-1.1); Prothrombin Time 12.1 SEC (10.0-13.1)
[2022-08-19 12:47] LABS: COVID-19 Test Negative (Negative); IDNOW Serial# 08D9AD1C
[2022-08-19 14:52] LABS: Alanine Aminotransferase 18 U/L (0-31); Alkaline Phosphatase 42 U/L (39-117); Anion Gap 13 (12-20); Aspartate Amino Transferase 26 U/L (5-31); Bilirubin Total 0.5 mg/dL (0.0-1.0); Blood Urea Nitrogen 15 mg/dL (9-16); Calcium 9.7 mg/dL (8.4-10.2); Carbon Dioxide 27 mmol/L (22-29); Chloride 106 mmol/L (96-108); Creatinine Clr Calc Pharmacy 53.6; Estimated Glomerular Filt Rate > 60; Glucose Random 102 mg/dL (60-115); Magnesium 1.8 mg/dL (1.6-2.6); Potassium 4.7 mmol/L (3.3-5.1); Sodium 141 mmol/L (135-145); Total Protein 7.3 g/dL (6.5-8.0)
[2022-08-19 16:22] VITALS: BP 156/65; PULSE 60; RESP 16; TEMP 36.7; O2SAT 98
--- NOTE | 2022-08-19 16:28 | MHC.EDTECH ---
THIS PCT JUST ASSUMED CARE OF PATIENT ,VITALS SIGN TAKEN AND VISUAL ACUITY CHECK DONE .
--- NOTE | 2022-08-19 16:31 | PC.NURSE ---
Pt brought into ED1, pt reporting I am in acidosis, I was just here, and I have been throwing up for 2 days, and have been taking my insulin Pt told to changeover operator, and pt stated, I need a minute , staff to return to room to place on monitor and gather vitals. Reported pt is a hard stick, which is why labs are not completed.
[2022-08-19 18:00] VITALS: BP 167/57; PULSE 62; RESP 16; TEMP 36.2; O2SAT 97
== END 2022-08-19 18:22 | disposition home or self-care (01) ==
PROVIDERS: Physician Assistant; Emergency Provider Internal Medicine; PCP Internal Medicine
DX: S02.40DA Maxillary fracture, left side, initial encounter for closed fracture (principal); S42.402A Unspecified fracture of lower end of left humerus, initial encounter for closed fracture; W01.0XXA Fall on same level from slipping, tripping and stumbling without subsequent striking against object, initial encounter; R91.1 Solitary pulmonary nodule; Z20.822 Contact with and (suspected) exposure to COVID-19; I10 Essential (primary) hypertension; E78.5 Hyperlipidemia, unspecified; Y93.01 Activity, walking, marching and hiking; Y92.480 Sidewalk as the place of occurrence of the external cause; Y99.9 Unspecified external cause status; Z79.02 Long term (current) use of antithrombotics/antiplatelets; Z79.899 Other long term (current) drug therapy
CPT/HCPCS: 36415; 70450; 70486; 72125; 73080; 73110; 80053; 83735; 85025; 85610; 87635; 99283; 99284

== ENCOUNTER → 2022-08-21 10:22 | Outpatient (BNVA) | payer MEDICARE, SELFPAY | PROVIDERS: PCP Internal Medicine; Visit Provider Physician Assistant | DX: S52.502A Unspecified fracture of the lower end of left radius, initial encounter for closed fracture (principal); W01.198A Fall on same level from slipping, tripping and stumbling with subsequent striking against other object, initial encounter; Y93.01 Activity, walking, marching and hiking; Y92.9 Unspecified place or not applicable; Y99.9 Unspecified external cause status | CPT/HCPCS: 99212 ==

== ENCOUNTER 2022-09-17 15:00 | Outpatient (RCR) | payer MEDICARE, SELFPAY ==
--- NOTE | 2022-07-30 14:03 | MHC.OT.EP ---
[address] [phone] Occupational Therapy Plan of Care Patient Name: Kailey Neil Date of Evaluation: 07/30/22 Diagnosis: Left distal radius and ulnar styloid fx Pain Location: Pain free at rest 5/10 w/ forceful use (short stabbing pain) Pain Score: 0 Pain Scale Used: Numeric (0 - 10) Aggravating Factors: Forceful tasks, rotation of arm Alleviating Factors: None used Assessment: 82 yo left hand dominant female fell while playing pickball in [place], she followed up with an assistance specialist and was placed in a brace. She was seen a few weeks later by Dr Palacios and x-rays show 'left distal radius fracture with shortening, loss of radial inclination, and dorsal tilt of ~45 degrees seen on the lateral view. She also has a slight ulnar styloid fracture'. Dr Palaicos agreed w/ conservative treatment and cont'd use of wrist orthosis except with showers. She has since has second follow up visit and is cleared for therapy, wearing orthosis when out of the house and with activity (hiking, walking, etc) and okay for light/moderate daily activity with left hand/wrist. On assessment today, she presents w/ limitations in flexion (26), extension (40), pronation (48) and supination (52). 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 She has been able to do most daily activities, still mindful of heavier activities (golf, etc) and wears her orthosis out of the home. Pain is low at rest and with light tasks, increasing with rotation or heavier use. I anticipate she will do well with course of hand therapy, she is very active at baseline and motivated and mindful of injury. Frequency and Duration: The patient will be seen 2x/wk for 6 weeks Short Term Goals: Wean from orthosis wear Left gross grasp >15 lb Left wrist rotation >55/55 Left wrist ext/flex >50/40 Ind w/ use of ice and heat appropriately Half-Way Goals: Quickdash score <35 pts Pain free with moderate daily activities (laundry, making bed, etc) Wrist rotation >70/70 Wrist ext/flex > 55/50 Left gross grasp >35lb Pt to return to light golfing w/ supportive tape of light brace as needed w/ report of low pain Treatment Plan: Therapeutic Exercise Therapeutic Activity Home Exercise Program Splinting Patient Education Edema Control ADL Training Ultrasound Paraffin Fluidotherapy MHP Cold Packs Joint Mobilization Soft Tissue Mobilization Kinesiotaping Electronically Signed By: Marielle Torres OTR/L CHT Please Sign and return to therapist. Thank you once again for your referral.
--- NOTE | 2022-09-17 15:44 | MHC.OT.DC ---
[address] [phone] F: [phone] Occupational Therapy Discharge Note Patient Name: Kailey Neil Provider: Ellie Palacios Diagnosis: Left distal radius and ulnar styloid fx Date of Surgery: Date of Evaluation: 07/30/22 Date of Discharge: 09/17/22 Treatments to Date: 9 Cancellations to Date: 0 No Shows to Date: 0 Discharge Status: Achieved Goals Improved Function Independent with HEP Discharge Summary: Pt does not feel limited with daily activities. Good understanding and carryover of HEP. Functional gains as follows: right wrist flex/ext 46/50 following heat and stretch, gross grasp improved to 25#. Quick DASH score improved from 41% impairment to 4% impairment. At this time pt. is IND with home program and in agreement with discharge. Electronically Signed By: Chelsey Salgado MS OTR/L Reviewed/agree with student documentation: Therapist: Please Sign and return to therapist, thank you for your referral.
== END 2022-09-28 13:26 | disposition home or self-care (01) ==
LOC: HO.OT 15:00
PROVIDERS: PCP Internal Medicine; Visit Provider Orthopaedic Surgery
DX: S52.615D Nondisplaced fracture of left ulna styloid process, subsequent encounter for closed fracture with routine healing (principal); S52.502D Unspecified fracture of the lower end of left radius, subsequent encounter for closed fracture with routine healing
CPT/HCPCS: 97110; 97165

== ENCOUNTER → 2022-09-18 12:47 | Outpatient (REF) | payer MEDICARE, SELFPAY ==
--- NOTE | 2022-09-18 12:50 | CA_ITS ---
Transthoracic Echocardiogram Patient (Last, First, Middle): Kailey Neil M Gender: Female Date of : 1940 Age: 82 Procedure Date: 09/18/2022 Procedure Type: Transthoracic Echocardiogram Location: OP Height: 162.56 cm Weight: 58.97 kg BSA: 1.63 m2 Heart Rate: 63 bpm BP: 120 / 56 mmHg Bungy Jump Master: HOLLIE Referring MD: Ton Bro MD Sodium Chlorite Operator: Ton Bro MD Symptoms: R06.02 - Shortness of breath Study Quality: Adequate ECG Rhythm: Sinus Conclusions: - 1. Normal LV systolic function with normal filling pattern 2. Mildly to moderately dilated left atrium 3. Moderate to severe eccentric anteriorly directed jet of mitral regurgitation which could be underestimated 4. Normal RV systolic pressure 5. No gross pericardial effusion Findings Left Ventricle Normal left ventricular size, thickness, and systolic function. The visually estimated ejection fraction is between 60-65%. Spectral Doppler is indicative of a normal filling pattern. Right Ventricle Normal right ventricular cavity size and systolic function. Atria The left atrium is mildly dilated. There is lipomatous hypertrophy of the interatrial septum. There is no evidence of interatrial shunt. The right atrium is likely dilated. Aortic Valve There is mild calcification of the aortic valve. There is no aortic valve stenosis. There is mild aortic valve regurgitation. Mitral Valve There is mild anterior and posterior mitral leaflet thickening. There is moderate to severe mitral valve regurgitation. The mitral regurgitation jet is directed anteriorly. Pulmonic Valve The pulmonic valve is likely normal. Tricuspid Valve Normal tricuspid valve structure. There is mild tricuspid valve regurgitation. The right ventricular systolic pressure is normal. The right ventricular systolic pressure is 25 mmHg. Normal right atrial pressure. There is no evidence of pulmonary hypertension. Great Vessels All visible segments of the aorta are normal in size. The pulmonary artery was not well visualized. Small plaque is seen in the ascending aorta. Venous The inferior vena cava is normal in size and collapses greater than 50% with inspiration. Pericardium/Pleural There is no evidence of pericardial effusion. Prior Study Comparison No significant change compared to prior study dated: 03/19/2022. Measurements 2D Linear Measurements IVSd: 0.80 0.6-0.9/0.6-1.0 cm LVIDd: 4.74 3.9-5.3/4.2-5.9 cm LVIDd Index: 2.91 2.4-3.2/2.2-3.1 cm/m2 LVIDs: 3.13 2.0-3.6 cm LVPWd: 0.69 0.7-1.1 cm LA Diam: 4.00 2.7-3.8/3.0-4.0 cm LAIDs Index: 2.45 1.5-2.3 cm/m2 LV Mass: 140.12 67-162/88-224 g LV Mass Index: 85.96 43-95/49-115 g/m2 LVOT Diam: 2.10 3.0+(-)1.3 cm 2D Systolic Function EF 4C: 65.40 >55% EF 2C: 60.20 >55% EF BiP: 63.20 >55% Mitral Valve MV Pk E: 1.08 MV PK A: 0.81 MV Decel Time: 158.00 E/A: 1.30 E'Lateral: 6.18 E'Medial: 3.99 E/E' Med: 27.10 E/E' Lat: 17.50 PHT: 46.00 MVA PHT: 4.78 Decel [place]: 6.87 Aortic Valve AoV Pk Cel[place]: 1.79 AoV Mn Cel[place]: 1.27 AoV VTI: 0.42 AoV Pk Grad: 13.00 Aov Mn Grad: 7.00 DONNA Cont.VTI: 2.30 AI Pk [place]: 3.91 AI [place]: 2.54 LVOT LVOT Pk [place]: 1.28 LVOT Mn [place]: 0.84 LVOT VTI: 0.28 LVOT Pk Grad: 7.00 LVOT Mn Grad: 4.00 LVOT Diam: 2.10 LVOT Area: 3.46 Diastolic Function MV Pk E: 1.08 MV Pk A: 0.81 E/A: 1.30 E'Medial: 3.99 E/E' Med: 27.10 E' Laterial: 6.18 E/E' Lat: 17.50 Right Ventricle TAPSE (mm): 21.50 TVS' Cel[place]: 11.70 Tricuspid Valve TR Pk Cel[place]: 2.32 TR Pk Grad: 22.00 RA Press: 3.00 RVSP: 25.00 Great Vessels Aorta Sinus of Valsalva: 2.70 2.0-3.5 cm Ao Asc: 3.40 2.1-3.4 cm Pulmonary Veins Pulm Vein S/D 0.90 Pulmonary Valve PV Pk Celestine: 1.24 Peak PV Grad: 6.00 Updated in Other Vendor System with Status of Final Ton Bro MD electronically signed on 09/21/2022 10:01:17 AM with status of Final
== END ==
LOC: HO.CARD 12:47
PROVIDERS: PCP Internal Medicine; Visit Provider Internal Medicine Cardiovascular Disease
DX: I34.0 Nonrheumatic mitral (valve) insufficiency (principal); R06.02 Shortness of breath
CPT/HCPCS: 93306

== ENCOUNTER → 2022-09-24 13:55 | Outpatient (BNVA) | payer MEDICARE, SELFPAY | PROVIDERS: PCP Internal Medicine; Referring Provider Internal Medicine; Visit Provider Internal Medicine | DX: I34.0 Nonrheumatic mitral (valve) insufficiency (principal); I10 Essential (primary) hypertension | CPT/HCPCS: 99212 ==

== ENCOUNTER 2023-02-02 12:15 | Outpatient (AMB) | payer MEDICARE, SELFPAY ==
--- NOTE | 2023-02-02 12:40 | MHC.PC.OV ---
Vital Signs 02/02/23 12:41 Height 5 ft 4 in Weight 122 lb BMI 20.9 BP 108/60 Blood Pressure Location Lt brachial Position Sitting Pulse 64 Pulse Source Pulse Oximeter Pulse Oximetry (%) 95 Oxygen Delivery Method Room Air Intake Visit Reasons: 6 Month Follow UP Intake Note: Pt is here today for 6 months follow up visit. Allergies cat dander [CATS] Allergy (Severe, Verified 02/02/23 12:43) DIFFICULTY BREATHING gluten Allergy (Severe, Uncoded 02/02/23 12:43) unk Medication List - Last Reconciled 02/02/23 by Betty Don MD albuterol sulfate 90 mcg/actuation (ProAir HFA) 1 inh inhalation QID PRN amlodipine 2.5 mg PO DAILY 90 days atorvastatin 20 mg PO BEDTIME calcium carbonate-vitamin D3 600 mg-5 mcg (200 unit) 1 tab PO DAILY cholecalciferol (vitamin D3) 25 mcg PO DAILY fluticasone propion-salmeterol 100-50 mcg/dose (Advair Diskus) 1 inh inhalation BID melatonin 5 mg PO BEDTIME PRN multivitamin 1 tab PO QAM Tobacco use date assessed: 02/02/23 Dental Screening Dental Screen Date: 02/02/23 Did you have a dental visit in the last 12 months?: Yes Did you have a dental problem in the last 6 months where you did not have access to dental care?: No Was dental information given to patient?: Patient has dentist HPI 6 Month Follow UP HPI Details Pt presents for HTN, hyperlipid, asthma, stable on meds. [facility] Medical History Annual physical exam Asthma Celiac sprue HTN (hypertension) Hyperlipidemia Non-rheumatic mitral regurgitation Osteoporosis Prolapse of female pelvic organs Vitamin D deficiency Surgical History H/O colonoscopy Hx of cataract extraction Family History Father CVD (cardiovascular disease) Mother Oral cancer Brother Myocardial infarction Social History Housing: Apartment Alcohol intake: current Alcohol intake frequency: holidays/special occasions only Patient Tobacco Use Status: Former Tobacco user Quit Date: quit 1969 e-Cigarette/Vaping Use: Never Used Advance Directives Date on File: 03/16/22 service: No 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al status: retired 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 Cognitive needs: No Hearing needs: No Vision needs: Yes Questionnaire Thrive Questionnaire Date Thrive assessed: 08/05/22 AUDIT C Alcohol Use Questionnaire (AUDIT-C) 1. How often do you have a drink containing alcohol?: 2-3 times a week 2. How many drinks containing alcohol do you have on a typical day when you are drinking?: 1 or 2 3. How often do you have six or more drinks on one occasion?: Never Total Score: 3 NIKITA-7 AMB Questionnaire NIKITA-7 Date NIKITA - 7 assessed: 08/05/22 Feeling nervous, anxious, or on edge: 0 = Not at all Not being able to stop or control worryin = Not at all Worrying too much about different things: 0 = Not at all Trouble relaxin = Not at all Being so restless that it is hard to sit still: 0 = Not at all Becoming easily annoyed or irritable: 0 = Not at all Feeling afraid as if something awful might happen: 0 = Not at all Total NIKITA-7 score (0-4 normal; 5-9 mild; 10-14 moderate; 15-21 severe): 0 Source: Developed by Drs. Isreal Ibrahim, Tomeka Barber, Dominick Grullon and colleagues, with an educational courtney from [employer]. Review of Systems Const All systems reviewed & are unremarkable except as noted in HPI and below Reports no additional complaints Eyes Reports no additional complaints ENT Reports no additional complaints Card Reports no additional complaints Resp Reports no additional complaints Reports no additional complaints Musc Reports no additional complaints Physical exam (Primary Care) Vital Signs: Last Vital Signs Pulse 64 02/02/23 12:41 BP 108/60 02/02/23 12:41 Pulse Ox 95 02/02/23 12:41 Oxygen Delivery Method Room Air 02/02/23 12:41 BMI result Body Mass Index 20.9 Tobacco/Smoking Status: Tobacco use Status Tobacco use date assessed 02/02/23 02/02/23 12:45 Patient Tobacco Use Status Former Tobacco user 02/02/23 12:45 e-Cigarette/Vaping Use Never Used 02/02/23 12:45 Thrive Assessment: Date of Thrive Assessment Date Thrive assessed 08/05/22 02/02/23 12:45 Const General: no acute distress HENMT Head: Yes normal to inspection Throat: Yes posterior oropharynx normal Neck Neck: Yes no lymphadenopathy and Yes supple Resp Effort & Inspection: normal respiratory effort Auscultation: clear to auscultation bilaterally Cardio Rhythm: regular rhythm Heart sounds: S1 normal heart sound present and S2 normal heart sound present GI Inspection: Yes normal to inspection Palpation (GI): Soft to palpation Percussion: Yes normal to percussion Auscultation: normal bowel sounds Assessment and Plan Assessment & Plan (1) Nodule of apex of right lung: Comment: incidental 0.8 cm 09/08 CT neck Code(s): R91.1 - Solitary pulmonary nodule Plan: schedule CT chest (2) Osteoporosis: Comment: DEXA: 07/2017, took Fosomax for >5 year 2009, started Prolia 11/2019, DEXA 08/08 osteopenia , last Prolia 02/07, recheck DEXA IN 2 years Code(s): M81.0 - Age-related osteoporosis without current pathological fracture Plan: cont vit D and regular exercise (3) Asthma: Code(s): J45.909 - Unspecified asthma, uncomplicated Plan: cont Advair (4) Essential hypertension: Code(s): I10 - Essential (primary) hypertension Plan: cont med (5) Hyperlipidemia: Code(s): E78.5 - Hyperlipidemia, unspecified Plan: cont statin Orders: Orders CT chest wo IV con Today R91.1 - Solitary pulmonary nodule Comprehensive [place]. Panel Fast 6 Months E78.5 - Hyperlipidemia, unspecified, I10 - Essential (primary) hypertension, J45.909 - Unspecified asthma, uncomplicated, M81.0 - Age-related osteoporosis without current pathological fracture Lipid Panel 6 Months E78.5 - Hyperlipidemia, unspecified, I10 - Essential (primary) hypertension, J45.909 - Unspecified asthma, uncomplicated, M81.0 - Age-related osteoporosis without current pathological fracture TSH reflex Free T4 6 Months E78.5 - Hyperlipidemia, unspecified, I10 - Essential (primary) hypertension, J45.909 - Unspecified asthma, uncomplicated, M81.0 - Age-related osteoporosis without current pathological fracture Vitamin B12 and Folate 6 Months E78.5 - Hyperlipidemia, unspecified, I10 - Essential (primary) hypertension, J45.909 - Unspecified asthma, uncomplicated, M81.0 - Age-related osteoporosis without current pathological fracture Complete Blood Count Auto Diff 6 Months E78.5 - Hyperlipidemia, unspecified, I10 - Essential (primary) hypertension, J45.909 - Unspecified asthma, uncomplicated, M81.0 - Age-related osteoporosis without current pathological fracture Coding Level of Care Code Est Pt Level 4 (18404) Diagnoses Nodule of apex of right lung R91.1 Osteoporosis M81.0 Asthma J45.909 Essential hypertension I10 Hyperlipidemia E78.5
[2023-02-02 12:41] VITALS: BP 108/60; PULSE 64; O2SAT 95; BMI 20.9
== END 2023-02-02 13:12 | disposition home or self-care (01) ==
PROVIDERS: Visit Provider Internal Medicine
DX: R91.1 Solitary pulmonary nodule (principal); M81.0 Age-related osteoporosis without current pathological fracture; J45.909 Unspecified asthma, uncomplicated; I10 Essential (primary) hypertension; E78.5 Hyperlipidemia, unspecified
CPT/HCPCS: 99214

== ENCOUNTER 2023-03-02 08:47 | Outpatient (REF) | payer MEDICARE, SELFPAY ==
--- NOTE | ~2023-03-02 | CT_ITS ---
EXAMINATION: CT CHEST WITHOUT CONTRAST CLINICAL INFORMATION: Solitary pulmonary nodule COMPARISON: None available. TECHNIQUE: Multidetector volumetric CT imaging of the chest was done. Axial MIP volume rendering provided. Sagittal and coronal reformatted images were obtained. This CT examination was performed using dose optimization techniques as appropriate, variously including the following: *Automated exposure control *Adjustment of mA and/or kV according to patient size (this includes techniques or standardized protocols for targeted exams where dose is matched to indication/reason for exam; i.e. extremities or head) *Use of iterative reconstruction technique DLP: 89. mGy-cm FINDINGS: RN MEDICAL INPATIENT SERVICES: Mitral annular and aortic calcifications. Biapical pleural thickening. LUNGS: Trachea and bronchi are patent. Mild bronchial wall thickening. Biapical pleural-parenchymal thickening. Hyperinflation. Diffuse mosaic attenuation to the pulmonary parenchyma. NODULES: RUL: 1 cm right medial apical, 4:9, coronal 39/82. 8 mm posterior lateral right apical has extension to the pleura/right apical pleural thickening, 4:9. RLL: 5 mm subpleural, 4:30 LINGULA: 5 mm, 4:37. Scattered 2 mm or less micronodules. MEDIASTINUM: Unremarkable thyroid. No pathologic lymphadenopathy. Nonenlarged heart. Heavy mitral annular calcifications. Nonaneurysmal aorta. Atherosclerotic calcifications including focally eccentric left lateral calcification at the level of the ascending aorta/arch. Nonenlarged pulmonary arteries. CORONARY ARTERY CALCIFICATION: Moderate to moderately severe. PLEURA: There is no pleural effusion. No pleural mass or thickening. Right upper lateral major fissural lymph node. CHEST WALL AND AXILLA: Heterogeneously dense bilateral breast parenchyma. Benign-appearing left breast calcification. UPPER ABDOMEN: Unremarkable. OSSEOUS STRUCTURES: No suspicious osseous lesions. CT/CT chest wo IV con IMPRESSION: Multiple pulmonary nodules, largest in the right upper lobe measures 1 cm. Per Fleischner criteria, CT follow-up in 3-6 months, and at 18-[address] at 3 months, PET/CT or tissue sampling.
== END 2023-03-02 08:48 | disposition home or self-care (01) ==
LOC: HO.CT 08:47
PROVIDERS: PCP Internal Medicine; Visit Provider Internal Medicine
DX: R91.1 Solitary pulmonary nodule (principal)
CPT/HCPCS: 71250

== ENCOUNTER → 2023-03-22 13:49 | Outpatient (REF) | payer MEDICARE, SELFPAY ==
--- NOTE | 2023-03-22 13:52 | CA_ITS ---
Transthoracic Echocardiogram Patient (Last, First, Middle): Kailey Neil M Gender: Female Date of : 1940 Age: 82 Procedure Date: 03/22/2023 Procedure Type: Transthoracic Echocardiogram Location: OP Height: 162.56 cm Weight: 56.7 kg BSA: 1.60 m2 Heart Rate: bpm BP: 120 / 60 mmHg [place] Upholsterer: CAPO Referring MD: Cesario Galeana MD Symptoms: I34.0 - Nonrheumatic mitral (valve) insufficiency Study Quality: Fair ECG Rhythm: Sinus Conclusions: - The left ventricular systolic function is normal. The calculated ejection fraction is 68% by biplane method. - There is moderate mitral valve regurgitation. - There is mild aortic valve stenosis. Findings Left Ventricle Normal left ventricular cavity size. There is normal left ventricular wall thickness. The left ventricular systolic function is normal. The calculated ejection fraction is 68% by biplane method. There is no evidence of regional wall motion abnormalities. Diastolic function is normal for age. LV peak GLS -20.3%. Right Ventricle Normal right ventricular cavity size and systolic function. Atria The left atrium is mildly dilated. The right atrium is normal in size. Aortic Valve There is moderate calcification of the aortic valve. There is mild aortic valve stenosis. There is trace (trivial) aortic valve regurgitation. Mitral Valve There is moderate mitral annular calcification. There is mild posterior mitral leaflet prolapse. There is moderate mitral valve regurgitation. The mitral regurgitation jet is directed anteriorly. There is no mitral valve stenosis. Pulmonic Valve The pulmonic valve is likely normal. Tricuspid Valve There is trace tricuspid valve regurgitation. There is no evidence of pulmonary hypertension. Great Vessels The asc aorta is normal in size. Moderate plaque is seen in the sino tubular ridge. Venous The inferior vena cava is normal in size and collapses greater than 50% with inspiration. Pericardium/Pleural There is no evidence of pericardial effusion. Prior Study Comparison No significant change compared to prior study dated: 09/18/2022. Measurements 2D Linear Measurements IVSd: 0.83 0.6-0.9/0.6-1.0 cm LVIDd: 5.08 3.9-5.3/4.2-5.9 cm LVIDd Index: 3.18 2.4-3.2/2.2-3.1 cm/m2 LVIDs: 3.69 2.0-3.6 cm LVPWd: 0.75 0.7-1.1 cm LA Diam: 3.50 2.7-3.8/3.0-4.0 cm LAIDs Index: 2.19 1.5-2.3 cm/m2 LV Mass: 170.75 67-162/88-224 g LV Mass Index: 106.72 43-95/49-115 g/m2 LVOT Diam: 2.00 3.0+(-)1.3 cm 2D Systolic Function EF 4C: 65.30 >55% EF 2C: 68.40 >55% EF BiP: 67.50 >55% Mitral Valve MV Pk E: 0.95 MV PK A: 0.62 MV Decel Time: 187.00 E/A: 1.50 E'Lateral: 7.62 E'Medial: 5.22 E/E' Med: 18.20 E/E' Lat: 12.50 PHT: 55.00 MVA PHT: 4.00 Decel [place]: 5.09 MR Vol - PW Dopp: 27.60 MR VTI: 1.84 MR ERO: 15.00 MR Alias Celestine: 0.39 MR RAD: 0.60 Aortic Valve AoV Pk [place]: 1.94 AoV Mn [place]: 1.44 AoV VTI: 0.48 AoV Pk Grad: 15.00 Aov Mn Grad: 9.00 DONNA Cont.VTI: 1.43 LVOT LVOT Pk [place]: 0.99 LVOT Mn [place]: 0.63 LVOT VTI: 0.22 LVOT Pk Grad: 4.00 LVOT Mn Grad: 2.00 LVOT Diam: 2.00 LVOT Area: 3.14 Diastolic Function MV Pk E: 0.95 MV Pk A: 0.62 E/A: 1.50 E'Medial: 5.22 E/E' Med: 18.20 E' Laterial: 7.62 E/E' Lat: 12.50 Right Ventricle TAPSE (mm): 23.60 TVS' [place]: 11.90 Tricuspid Valve TR Pk [place]: 2.17 TR Pk Grad: 19.00 RA Press: 3.00 RVSP: 22.00 Great Vessels Aorta Sinus of Valsalva: 2.91 2.0-3.[address] [place]: 1.93 1.7-3.4 cm Ao Asc: 3.40 2.1-3.4 cm Updated in Other Vendor System with Status of Final Cesario Galeana MD electronically signed on 03/23/2023 4:02:39 PM with status of Final
== END ==
LOC: HO.CARD 13:49
PROVIDERS: PCP Internal Medicine; Visit Provider Internal Medicine Cardiovascular Disease
DX: I34.0 Nonrheumatic mitral (valve) insufficiency (principal)
CPT/HCPCS: 93306; 93356

== ENCOUNTER → 2023-03-22 13:52 | Outpatient (BNV) | payer MEDICARE, SELFPAY | PROVIDERS: PCP Internal Medicine; Visit Provider Internal Medicine | DX: I35.0 Nonrheumatic aortic (valve) stenosis (principal); I34.0 Nonrheumatic mitral (valve) insufficiency | CPT/HCPCS: 93306 ==

== ENCOUNTER 2023-03-30 13:24 | Outpatient (AMB) | payer MEDICARE, SELFPAY ==
--- NOTE | 2023-03-30 13:30 | A.OFFVIS_ITS ---
Intake Vital Signs 03/30/23 13:31 Height 5 ft 4 in Weight 122 lb 9.232 oz BMI 21.0 BP 132/60 Blood Pressure Location Lt brachial Position Sitting Pulse 74 Intake Visit Reasons: 6 mth s/p echo Intake Note: 6 month follow up Traditional Chinese Herbalist Required: No Accompanied by: Self / Same As Patient Allergies cat dander [CATS] Allergy (Severe, Verified 03/30/23 13:31) DIFFICULTY BREATHING gluten Allergy (Severe, Uncoded 03/30/23 13:31) unk Medication List - Last Reconciled 03/30/23 by Cesario Galeana MD albuterol sulfate 90 mcg/actuation (ProAir HFA) 1 inh inhalation QID PRN amlodipine 2.5 mg PO DAILY 90 days atorvastatin 20 mg PO BEDTIME calcium carbonate-vitamin D3 600 mg-5 mcg (200 unit) 1 tab PO DAILY cholecalciferol (vitamin D3) 25 mcg PO DAILY fluticasone propion-salmeterol 100-50 mcg/dose (Advair Diskus) 1 inh inhalation BID melatonin 5 mg PO BEDTIME PRN multivitamin 1 tab PO QAM HPI HPI Comments History of Present Illness Details Kailey returns for follow-up regarding mitral regurgitation. Overall, she is doing good. No complaints like angina or shortness of breath or in fact anything at all. She states that she is walking almost 4 miles with absolutely no difficulty. She does this regularly. [facility] Medical History Annual physical exam Asthma Celiac sprue HTN (hypertension) Hyperlipidemia Non-rheumatic mitral regurgitation Osteoporosis Prolapse of female pelvic organs Vitamin D deficiency Surgical History Hx of cataract extraction H/O colonoscopy Family History Father CVD (cardiovascular disease) Mother Oral cancer Brother Myocardial infarction Social History Housing: Apartment Alcohol intake: current Alcohol intake frequency: holidays/special occasions only Patient Tobacco Use Status: Former Tobacco user Quit Date: 1969 e-Cigarette/Vaping Use: Never Used Advance Directives Date on File: 03/16/22 service: No 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al status: retired 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 Cognitive needs: No Hearing needs: No Vision needs: Yes Review of Systems Const Denies weakness ENT Denies dizziness Card Denies chest pain, Denies chest pain with activity, Denies syncope, Denies rapid heart rate, Denies pedal edema, Denies edema, Denies leg edema, Denies lightheadedness, Denies palpitations, Denies dyspnea, Denies dyspnea on exertion and Denies orthopnea Resp Denies cough, Denies dyspnea and Denies dyspnea on exertion GI Denies hematochezia and Denies change in stool character Musc Denies abnormal gait, Denies muscle cramps, Denies muscle weakness, Denies numbness, Denies radiating pain into limb and Denies tingling Neuro Denies abnormal gait, Denies dizziness, Denies syncope, Denies numbness, Denies tingling and Denies weakness Endo Denies palpitations Physical Exam Vital Signs: Last Vital Signs Pulse 74 03/30/23 13:31 BP 132/60 03/30/23 13:31 BMI result Body Mass Index 21.0 Const General: comfortable and no acute distress Orientation/consciousness: patient oriented x3 HEENT Other: Unremarkable Head: Yes normal to inspection Neck Neck: Yes normal visual inspection Chest Chest palpation & inspection: normal inspection of the chest Resp Auscultation: clear to auscultation bilaterally Cardio Palpation: normal PMI Heart sounds: S1 normal heart sound present, S2 normal heart sound present, no gallops, Murmur heart sound present systolic at the apex and no rubs GI Palpation (GI): Soft to palpation Back/Spine/Pelvis Other: unremarkable Skin General skin exam: no rashes or lesions noted Neuro General: patient oriented x3 Extrem General: Yes normal to inspection Psych Mental Status: mental status grossly normal Office Procedures EKG Details: EKG with sinus rhythm at 74/Min; premature supraventricular ectopy; cannot exclude old septal infarct; slight ST depression in inferior and anterolateral leads bit more prominent than from before. [id number], Complete Assessment & Plan Assessment & Plan (1) Non-rheumatic mitral regurgitation: Code(s): I34.0 - Nonrheumatic mitral (valve) insufficiency Plan: Transesophageal echocardiogram 08/2020 with mitral valve prolapse likely involving P2/P3 with moderate mitral regurgitation. In the most recent echocardiogram, again suggestive of moderate mitral regurgitation. Anteriorly directed jet. Overall, no major changes. LVEF is preserved at 68%. Normal cavity size. Clinically, she has got absolutely no restrictions in activity and she is regularly hiking several miles with no issues. We will see her back in 6 months time. (2) Essential hypertension: Code(s): I10 - Essential (primary) hypertension Plan: On amlodipine. Stable. Plan Total time spent including review of data, counseling, documentation, coordination of care-31 minutes. Coding Level of Care Code Est Pt Level 4 (61594) Diagnoses Non-rheumatic mitral regurgitation I34.0 Essential hypertension I10 CPT Codes EKG - CPT: 50369-[id number], Complete ([id number])
[2023-03-30 13:31] VITALS: BP 132/60; PULSE 74; BMI 21.0
== END 2023-03-30 13:48 | disposition home or self-care (01) ==
PROVIDERS: PCP Internal Medicine; Visit Provider Internal Medicine
DX: I34.0 Nonrheumatic mitral (valve) insufficiency (principal); I10 Essential (primary) hypertension
CPT/HCPCS: 93010; 99214

== ENCOUNTER → 2023-03-30 13:24 | Outpatient (BNVA) | payer MEDICARE, SELFPAY | PROVIDERS: PCP Internal Medicine; Visit Provider Internal Medicine | DX: I34.0 Nonrheumatic mitral (valve) insufficiency (principal); I10 Essential (primary) hypertension | CPT/HCPCS: 93005; 99212 ==

== ENCOUNTER 2023-06-03 12:45 | Outpatient (REF) | payer MEDICARE, SELFPAY ==
--- NOTE | ~2023-06-03 | CT_ITS ---
EXAMINATION: CT CHEST WITHOUT CONTRAST CLINICAL INFORMATION: 3 month follow-up COMPARISON: 03/02/2023 06/09/2022 TECHNIQUE: Multidetector volumetric CT imaging of the chest was done. Axial MIP volume rendering provided. Sagittal and coronal reformatted images were obtained. This CT examination was performed using dose optimization techniques as appropriate, variously including the following: *Automated exposure control *Adjustment of mA and/or kV according to patient size (this includes techniques or standardized protocols for targeted exams where dose is matched to indication/reason for exam; i.e. extremities or head) *Use of iterative reconstruction technique DLP: 94 mGy-cm FINDINGS: FPGA ENGINEER: Biapical pleural thickening. Mitral annular and aortic calcifications. LUNGS: Trachea and bronchi are patent. Diffuse bronchial wall thickening. Biapical pleural-parenchymal thickening. Hyperinflation. Mosaic attenuation bilateral lung goldstein and scattered atelectasis. NODULES: RUL: No change 1 cm, 5:71. No change 8 mm posterolateral nodule with extension to the pleural surface, 5:65. No change 6 mm, 5:246. Stable 4-5 mm adjacent nodules on 7:74 RLL: No change 5 mm subpleural, 5:269. FABIAN:. No change 4 mm, 5:77 FABIAN: Stable 5 mm anterior, 5:130. New 5 mm nodule with hazy borders 5:195, 6:44, 7:23. Lingula: No change 5 mm, 5:373 Scattered micronodules. MEDIASTINUM: Unremarkable thyroid. No pathologic lymphadenopathy. Nonenlarged heart. Mitral annular calcifications. Nonaneurysmal aorta with atherosclerotic calcifications including eccentric left posterolateral calcification at the level of the distal ascending aorta. Nonenlarged pulmonary arteries. CORONARY ARTERY CALCIFICATION: Moderately severe. PLEURA: There is no pleural effusion. No pleural mass or thickening. AXILLA/CHEST WALL: No lymphadenopathy. Nodular parenchymal components bilateral breasts. UPPER ABDOMEN: Unremarkable. OSSEOUS STRUCTURES: Right humeral head irregularity consistent with old trauma, seen on 06/09/[address]/CT chest wo IV con IMPRESSION: Underlying emphysema and mosaic attenuation to the lung parenchyma. Multiple stable lung nodules, largest in the upper lobe measuring 1 cm. Interval development of 5 mm left upper lobe nodule. Six-month LDCT follow-up recommended.
== END 2023-06-03 12:46 | disposition home or self-care (01) ==
LOC: HO.CT 12:45
PROVIDERS: PCP Internal Medicine; Visit Provider Internal Medicine
DX: R91.1 Solitary pulmonary nodule (principal)
CPT/HCPCS: 71250

== ENCOUNTER 2023-08-04 07:38 | Outpatient (REF) | payer MEDICARE, SELFPAY ==
[2023-08-04 07:49] LABS: MANUAL DIFF FLAG NO
[2023-08-04 08:48] LABS: Basophils Percent Auto 0.6 % (0-2); Eosinophils Absolute Auto 0.3 X10*3/uL (0.0-0.4); Eosinophils Percent Auto 4.6 % (0-4); Hematocrit 38.6 % (37.0-47.0); Hemoglobin 12.4 g/dl (12.0-16.0); Imm Gran Abs Auto 0.02 X10*3/uL (0.00-0.03); Imm Gran Pct Auto 0.3 % (0.0-0.4); Lymphocytes Absolute Auto 1.7 X10*3/uL (1.2-4.9); Lymphocytes Percent Auto 23.8 % (20-40); Mean Corpuscular HGB Conc 32.1 g/dl (31.0-35.0); Mean Corpuscular Hemoglobin 28.5 pg (27.0-33.0); Mean Corpuscular Volume 88.7 fL (80.0-98.0); Mean Platelet Volume 11.9 fL (9.4-12.3); Monocytes Absolute Auto 0.7 X10*3/uL (0.1-1.2); Monocytes Percent Auto 9.4 % (2-11); Neutrophils Absolute Auto 4.4 x10*3/uL (2.0-8.3); Neutrophils Percent Auto 61.3 % (45-73); Platelet Count 174 X10*3/uL (160-400); Red Blood Count 4.35 X10*6/uL (4.20-5.50); Red Cell Distribution Width 13.6 % (11.0-16.0); White Blood Count 7.2 X10*3/uL (4.8-10.8)
[2023-08-04 10:48] LABS: Folate 13.2 ng/mL (> or = 4.0); Vitamin B12 760 pg/mL (200-900)
[2023-08-04 11:15] LABS: Alanine Aminotransferase 20 U/L (0-31); Albumin Level 3.9 g/dL (3.5-5.0); Alkaline Phosphatase 49 U/L (39-117); Anion Gap 9 (12-20); Aspartate Amino Transferase 24 U/L (5-31); Bilirubin Total 0.4 mg/dL (0.0-1.0); Blood Urea Nitrogen 11 mg/dL (9-16); Calcium 9.7 mg/dL (8.4-10.2); Carbon Dioxide 28 mmol/L (22-29); Chloride 105 mmol/L (96-108); Cholesterol 161 mg/dL (<200); Estimated Glomerular Filt Rate > 60; Glucose Fasting 99 mg/dL (60-99); HDL Cholesterol 78 mg/dL (>40); LDL Cholesterol Calculated 70 mg/dL (<100); Potassium 3.9 mmol/L (3.3-5.1); Sodium 138 mmol/L (135-145); Total Protein 7.5 g/dL (6.5-8.0); Triglycerides 68 mg/dL (<150)
[2023-08-04 11:36] LABS: TSH reflex Free T4 2.21 uIU/mL (0.32-4.0)
== END 2023-08-04 07:39 | disposition home or self-care (01) ==
LOC: HO.LAB 07:38
PROVIDERS: PCP Internal Medicine; Visit Provider Internal Medicine
DX: M81.0 Age-related osteoporosis without current pathological fracture (principal); J45.909 Unspecified asthma, uncomplicated; I10 Essential (primary) hypertension; E78.5 Hyperlipidemia, unspecified
CPT/HCPCS: 36415; 80053; 80061; 82607; 82746; 84443; 85025

== ENCOUNTER 2023-08-10 11:13 | Outpatient (AMB) | payer MEDICARE, SELFPAY ==
--- NOTE | 2023-08-10 11:24 | MHC.PC.OV ---
Vital Signs 08/10/23 11:25 Height 5 ft 4 in Weight 122 lb BMI 20.9 BP 128/64 Blood Pressure Location Rt brachial Position Sitting Pulse 58 Pulse Source Pulse Oximeter Pulse Oximetry (%) 97 Oxygen Delivery Method Room Air Intake Visit Reasons: Annual Physical Intake Note: Pt is here today for PE. Allergies cat dander [CATS] Allergy (Severe, Verified 08/10/23 11:26) DIFFICULTY BREATHING gluten Allergy (Severe, Uncoded 08/10/23 11:26) unk Medication List - Last Reconciled 08/10/23 by Betty Don MD albuterol sulfate 90 mcg/actuation (ProAir HFA) 1 inh inhalation QID PRN amlodipine 2.5 mg PO DAILY atorvastatin 20 mg PO BEDTIME calcium carbonate-vitamin D3 600 mg-5 mcg (200 unit) 1 tab PO DAILY cholecalciferol (vitamin D3) 25 mcg PO DAILY fluticasone propion-salmeterol 100-50 mcg/dose (Advair Diskus) 1 inh inhalation BID melatonin 5 mg PO BEDTIME PRN multivitamin 1 tab PO QAM Tobacco use date assessed: 08/10/23 Fall risk assessment: No Falls in past year Last assessed Fall Risk: 08/10/23 Dental Screening Dental Screen Date: 08/10/23 Did you have a dental visit in the last 12 months?: Yes Did you have a dental problem in the last 6 months where you did not have access to dental care?: No Was dental information given to patient?: Patient has dentist HPI Annual Physical HPI Details Patient presents for physical. She denies complaints patient has been physically active walking 4 miles a day and denies shortness of breath chest pains cough palpitations. [facility] Medical History (Updated 08/10/23 @ 12:12 by Betty Don MD) Vitamin D deficiency Non-rheumatic mitral regurgitation Hyperlipidemia Annual physical exam Prolapse of female pelvic organs HTN (hypertension) Osteoporosis Celiac sprue Asthma Surgical History Hx of cataract extraction H/O colonoscopy Family History Father CVD (cardiovascular disease) Mother Oral cancer Brother Myocardial infarction Social History (Reviewed 08/10/23 @ 11:29 by SAMIR Piedra Housing: Apartment Alcohol intake: current Alcohol intake frequency: holidays/special occasions only Patient Tobacco Use Status: Former Tobacco user Quit Date: 1969 e-Cigarette/Vaping Use: Never Used Advance Directives Date on File: 03/16/22 service: No 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al status: retired 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 1. Little interest or pleasure in doing things: not at all 2. Feeling down, depressed, or hopeless: not at all 3. Trouble falling or staying asleep, or sleeping too much: not at all 4. Feeling tired or having little energy: not at all 5. Poor appetite or overeating: not at all 6. Feeling bad about yourself - or that you are a failure or have let yourself or your family down: not at all 7. Trouble concentrating on things, such as reading the newspaper or watching television: not at all 8. Moving or speaking so slowly that other people could have noticed. Or the opposite - being so fidgety or restless that you have been moving around a lot more than usual: not at all 9. Thoughts that you would be better off or of hurting yourself in some way: not at all Total score: 0 Depression Screening Interpretation: Negative Depression Screening Done: Yes Source: Developed by Drs. Isreal Ibrahim, Tomeka Barber, Dominick Grullon and colleagues, with an educational courtney from [employer]. Thrive Questionnaire Date Thrive assessed: 08/10/23 I am a: Patient What is your living situation today?: I have a steady place to live Within the past 12 months, did the food you bought not last and you didn't have the money to get more?: Never true Within the past 12 months, did you worry whether your food would run out before you got money to buy more?: Never true Do you have trouble paying for medicines?: No Do you have trouble getting transportation to medical appointments?: No Do you have trouble paying your heating and electricity bill?: No Do you have trouble taking care of your child, family member or friend?: No Do you have trouble with day-to-day activities such as bathing, preparing meals, shopping, managing finances, etc.?: No Are you currently unemployed and looking for a job?: No Are you interested in more education?: No Please select the resources that you would like help with: None THRIVE Score: 0 AUDIT C Alcohol Use Questionnaire (AUDIT-C) 1. How often do you have a drink containing alcohol?: 4 or more times a week 2. How many drinks containing alcohol do you have on a typical day when you are drinking?: 1 or 2 3. How often do you have six or more drinks on one occasion?: Never Total Score: 4 NIKITA-7 AMB Questionnaire NIKITA-7 Date NIKITA - 7 assessed: 08/10/23 Feeling nervous, anxious, or on edge: 0 = Not at all Not being able to stop or control worryin = Not at all Worrying too much about different things: 0 = Not at all Trouble relaxin = Not at all Being so restless that it is hard to sit still: 0 = Not at all Becoming easily annoyed or irritable: 0 = Not at all Feeling afraid as if something awful might happen: 0 = Not at all Total NIKITA-7 score (0-4 normal; 5-9 mild; 10-14 moderate; 15-21 severe): 0 Source: Developed by Drs. Isreal Ibrahim, Tomeka Barber, Dominick Grullon and colleagues, with an educational courtney from [employer]. Review of Systems Const All systems reviewed & are unremarkable except as noted in HPI and below Reports no additional complaints Eyes Reports no additional complaints ENT Reports no additional complaints Card Reports no additional complaints Resp Reports no additional complaints GI Reports no additional complaints Reports no additional complaints Physical exam (Primary Care) Vital Signs: Last Vital Signs Pulse 58 08/10/23 11:25 BP 128/64 08/10/23 11:25 Pulse Ox 97 08/10/23 11:25 Oxygen Delivery Method Room Air 08/10/23 11:25 BMI result Body Mass Index 20.9 Tobacco/Smoking Status: Tobacco use Status Tobacco use date assessed 08/10/23 08/10/23 11:29 Patient Tobacco Use Status Former Tobacco user 08/10/23 11:29 e-Cigarette/Vaping Use Never Used 08/10/23 11:29 PHQ-9: PHQ-9 Score PHQ-9: Total score 0 08/10/23 11:30 Depression Screening Interpretation: Negative Thrive Assessment: Date of Thrive Assessment Date Thrive assessed 08/10/23 08/10/23 11:30 Const General: no acute distress HENMT Head: Yes normal to inspection Ears: hearing grossly normal bilaterally General nose exam: Normal external nose present Throat: Yes posterior oropharynx normal Eyes General: appearance normal, both eyes and all related structures Neck Neck: Yes no lymphadenopathy and Yes supple Resp Effort & Inspection: normal respiratory effort Auscultation: clear to auscultation bilaterally Cardio Rhythm: regular rhythm Heart sounds: S1 normal heart sound present and S2 normal heart sound present GI Inspection: Yes normal to inspection Palpation (GI): Soft to palpation Percussion: Yes normal to percussion Auscultation: normal bowel sounds Assessment and Plan Assessment & Plan (1) Lung nodules: Comment: stable 1 cm nodule but new [address] 06/12 recheck in 6 months Code(s): R91.8 - Other nonspecific abnormal finding of lung field Plan: check CT (2) Osteoporosis: Comment: DEXA: 07/2017, took Fosomax for >5 year 2009, started Prolia 11/2019, DEXA 08/08 osteopenia , last Prolia 02/07, recheck DEXA IN 2 years Code(s): M81.0 - Age-related osteoporosis without current pathological fracture Plan: Check DEXA (3) Asthma: Code(s): J45.909 - Unspecified asthma, uncomplicated Plan: Patient was advised to decrease Advair to once a day and use ProAir as (4) Non-rheumatic mitral regurgitation: Comment: moderate MR, Echo q 6 months, f/u [facility] cardiology Code(s): I34.0 - Nonrheumatic mitral (valve) insufficiency Plan: Follow-up with cardiology (5) Annual physical exam: Code(s): Z00.00 - Encounter for general adult medical examination without abnormal findings Plan: Well-balanced diet regular physical activity discussed with the patient , follow-up in 6 months Orders: Orders CT chest wo IV con 4 Months R91.8 - Other nonspecific abnormal finding of lung field XR DEXA axial skeleton Today M81.0 - Age-related osteoporosis without current pathological fracture Coding Level of Care Code Est Pt Prev Care >65y(31839) Diagnoses Lung nodules R91.8 Osteoporosis M81.0 Asthma J45.909 Non-rheumatic mitral regurgitation I34.0 Annual physical exam Z00.00
[2023-08-10 11:25] VITALS: BP 128/64; PULSE 58; O2SAT 97; BMI 20.9
== END 2023-08-10 12:02 | disposition home or self-care (01) ==
PROVIDERS: Visit Provider Internal Medicine
DX: Z00.00 Encounter for general adult medical examination without abnormal findings (principal); R91.8 Other nonspecific abnormal finding of lung field; M81.0 Age-related osteoporosis without current pathological fracture; J45.909 Unspecified asthma, uncomplicated; I34.0 Nonrheumatic mitral (valve) insufficiency
CPT/HCPCS: 99397

== ENCOUNTER 2023-08-27 09:45 | Outpatient (REF) | payer MEDICARE, SELFPAY ==
--- NOTE | ~2023-08-27 | MM_ITS ---
EXAMINATION: BONE DENSITOMETRY CLINICAL INDICATION: Age-related osteoporosis without current pathological fracture. COMPARISON: Baseline BD dated 08/15/2021. TECHNIQUE: Using a [employer] DXA System (software version: 13.1) manufactured by [employer], dual-energy x-ray absorptiometry was performed of the lumbar spine and left hip. The images are of good technical quality. Summary results are attached. FINDINGS: LEFT FEMUR, NECK: Current: BMD 0.876 g/cm2, Z-score 1.2, T-score -1.2, osteopenia. Baseline: BMD 0.887 g/cm2. LEFT FEMUR, TOTAL: Current: BMD 0.737 g/cm2, Z-score 0.1, T-score -2.1, osteopenia, 3.0% decrease from baseline (<5% change is not significant). Baseline: BMD 0.760 g/cm2. AP SPINE L1-L3 (excluding L4): The data of L1-L4 has been changed to exclude the L4 vertebral body, because degenerative sclerosis at this level may cause overestimation of lumbar spine density. Current: BMD 0.936 g/cm2, Z-score 0.1, T-score -2.0, osteopenia, 4.3% decrease from baseline (<5% change is not significant). Baseline: BMD 0.978 g/cm2. IDENTIFIED RISK FACTORS: History of fracture (adult), menopause, osteoporosis. HISTORY OF FRACTURE: Forearm, humerus, other, wrist. MEDICATIONS: Calcium, vitamin D. MM/XR DEXA axial skeleton IMPRESSION: 1. DIAGNOSIS: Osteopenia based on the lowest T-score value of -2.1 in the total femur applying World Health Organization criteria. 2. 10-YEAR FRACTURE RISK PREDICTION, FRAX: Major osteoporotic fracture (clinical spine, forearm, hip or shoulder) 16.3%. Hip fracture 3.5%. 3. Treatment Recommendations: NOF guidelines recommend consideration for treatment in postmenopausal women and men age 50 and older presenting with the following: -A hip or vertebral (clinical or morphometric) fracture. -T-score less than or equal to -2.5 at the femoral neck or spine after appropriate evaluation to exclude secondary causes. -Low bone mass at the hip or spine and a 10-year fracture probability by FRAX of greater than or equal to 3% for hip fracture or greater than or equal to 20% for major osteoporotic fracture based on the [place] adapted WHO algorithm. 4. Other Recommendations: All treatment decisions require clinical judgment and consideration of individual patient factors, including patient preferences, comorbidities, previous drug use, risk factors not captured in the FRAX model (e.g. frailty, falls, vitamin D deficiency, increased bone turnover, interval significant decline in bone density) and possible under or overestimation of fracture risk by FRAX. Additional medical evaluation for secondary cause of low bone mineral density may be appropriate. FUTURE SCAN RECOMMENDATION: People with diagnosed cases of osteoporosis or at high risk for fracture should have regular bone mineral density tests. For patients eligible for Medicare, routine testing is allowed once every 2 years. The testing frequency can be increased to one year for patients who have rapidly progressing disease, those who are receiving or discontinuing medical therapy to restore bone mass, or have additional risk factors.
== END 2023-08-27 09:46 | disposition home or self-care (01) ==
LOC: HO.MAMMO 09:45
PROVIDERS: PCP Internal Medicine; Visit Provider Internal Medicine
DX: Z13.820 Encounter for screening for osteoporosis (principal); M81.0 Age-related osteoporosis without current pathological fracture; Z78.0 Asymptomatic menopausal state
CPT/HCPCS: 77080

== ENCOUNTER 2023-10-05 12:21 | Outpatient (AMB) | payer MEDICARE, SELFPAY ==
[2023-10-05 12:27] VITALS: BP 120/68; PULSE 61; BMI 20.8
--- NOTE | 2023-10-05 12:27 | A.OFFVIS_ITS ---
Vital Signs 10/05/23 12:27 Height 5 ft 4 in Weight 121 lb 4.068 oz BMI 20.8 BP 120/68 Blood Pressure Location Lt brachial Position Sitting Pulse 61 Pulse Source Pulse Oximeter Intake Visit Reasons: 6 mth f/up Allergies cat dander [CATS] Allergy (Severe, Verified 08/10/23 11:26) DIFFICULTY BREATHING gluten Allergy (Severe, Uncoded 08/10/23 11:26) unk Medication List - Last Reconciled 10/05/23 by Cesario Galeana MD albuterol sulfate 90 mcg/actuation (ProAir HFA) 1 inh inhalation QID PRN amlodipine 2.5 mg PO DAILY atorvastatin 20 mg PO BEDTIME calcium carbonate-vitamin D3 600 mg-5 mcg (200 unit) 1 tab PO DAILY cholecalciferol (vitamin D3) 25 mcg PO DAILY fluticasone propion-salmeterol 100-50 mcg/dose (Advair Diskus) 1 inh inhalation BID melatonin 5 mg PO BEDTIME PRN multivitamin 1 tab PO QAM HPI Comments Details: Kailey returns for follow-up regarding mitral regurgitation. Overall, she is doing good. No complaints like angina or shortness of breath or in fact anything at all. She walks several miles regularly with no issues. [facility]END[facility] S[facility] TO [facility] Medical History (Updated 10/05/23 @ 14:23 by Cesario Galeana MD) Vitamin D deficiency Non-rheumatic mitral regurgitation Hyperlipidemia Annual physical exam Prolapse of female pelvic organs HTN (hypertension) Osteoporosis Celiac sprue Asthma Surgical History Hx of cataract extraction H/O colonoscopy Family History Father CVD (cardiovascular disease) Mother Oral cancer Brother Myocardial infarction Social History Housing: Apartment Alcohol intake: current Alcohol intake frequency: holidays/special occasions only Patient Tobacco Use Status: Former Tobacco user e-Cigarette/Vaping Use: Never Used Advance Directives Date on File: 03/16/22 service: No 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al status: retired 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 Cognitive needs: No Hearing needs: No Vision needs: Yes Review of Systems Const Denies weakness ENT Denies dizziness Card Denies chest pain, Denies chest pain with activity, Denies syncope, Denies rapid heart rate, Denies pedal edema, Denies edema, Denies leg edema, Denies lightheadedness, Denies palpitations, Denies dyspnea, Denies dyspnea on exertion and Denies orthopnea Resp Denies cough, Denies dyspnea and Denies dyspnea on exertion GI Denies hematochezia and Denies change in stool character Musc Denies abnormal gait, Denies muscle cramps, Denies muscle weakness, Denies numbness, Denies radiating pain into limb and Denies tingling Neuro Denies abnormal gait, Denies dizziness, Denies syncope, Denies numbness, Denies tingling and Denies weakness Endo Denies palpitations Physical Exam Vital Signs: Last Vital Signs Pulse 61 10/05/23 12:27 BP 120/68 10/05/23 12:27 BMI result Body Mass Index 20.8 Const General: comfortable and no acute distress Orientation/consciousness: patient oriented x3 HEENT Other: Unremarkable Head: Yes normal to inspection Neck Neck: Yes normal visual inspection Chest Chest palpation & inspection: normal inspection of the chest Resp Auscultation: clear to auscultation bilaterally Cardio Palpation: normal PMI Heart sounds: S1 normal heart sound present, S2 normal heart sound present, no gallops, Murmur heart sound present systolic at the apex and no rubs GI Palpation (GI): Soft to palpation Back/Spine/Pelvis Other: unremarkable Skin General skin exam: no rashes or lesions noted Neuro General: patient oriented x3 Extrem General: Yes normal to inspection Psych Mental Status: mental status grossly normal Assessment & Plan Assessment & Plan (1) Non-rheumatic mitral regurgitation: Code(s): I34.0 - Nonrheumatic mitral (valve) insufficiency Category: Medical Plan: Transesophageal echocardiogram 08/2020 with mitral valve prolapse likely involving P2/P3 with moderate mitral regurgitation. In the last TTE, again suggestive of moderate mitral regurgitation. Anteriorly directed jet. Overall, no major changes. LVEF is preserved at 68%. Normal cavity size. Clinically, she has got absolutely no restrictions in activity and she is regularly hiking several miles with no issues. We will continue to follow clinically and by echocardiograms. She agrees. If any interim symptoms, she will contact us immediately. (2) Essential hypertension: Code(s): I10 - Essential (primary) hypertension Category: Medical Plan: On amlodipine. Stable. Plan Total time spent including review of data, counseling, documentation, coordination of care-32 minutes. Orders: Orders CA echo transthoracic complete 1 Year I34.0 - Nonrheumatic mitral (valve) insufficiency Coding Level of Care Code Est Pt Level 4 (45306) Diagnoses Non-rheumatic mitral regurgitation I34.0 Essential hypertension I10
== END 2023-10-05 12:43 | disposition home or self-care (01) ==
PROVIDERS: PCP Internal Medicine; Visit Provider Internal Medicine
DX: I34.0 Nonrheumatic mitral (valve) insufficiency (principal); I10 Essential (primary) hypertension
CPT/HCPCS: 99214

== ENCOUNTER → 2023-10-05 12:21 | Outpatient (BNVA) | payer MEDICARE, SELFPAY | PROVIDERS: PCP Internal Medicine; Visit Provider Internal Medicine | DX: I34.0 Nonrheumatic mitral (valve) insufficiency (principal); I10 Essential (primary) hypertension; Z79.899 Other long term (current) drug therapy | CPT/HCPCS: 99212 ==

== ENCOUNTER 2023-12-16 12:48 | Outpatient (REF) | payer MEDICARE, SELFPAY ==
--- NOTE | ~2023-12-16 | CT_ITS ---
EXAMINATION: CT CHEST WITHOUT CONTRAST CLINICAL INFORMATION: Follow-up 5 mm left upper lobe nodule. COMPARISON: CT chest 06/03/2023. TECHNIQUE: Multidetector volumetric CT imaging of the chest was done. Axial MIP volume rendering provided. Sagittal and coronal reformatted images were obtained. This CT examination was performed using dose optimization techniques as appropriate, variously including the following: *Automated exposure control *Adjustment of mA and/or kV according to patient size (this includes techniques or standardized protocols for targeted exams where dose is matched to indication/reason for exam; i.e. extremities or head) *Use of iterative reconstruction technique DLP: 101 mGy-cm FINDINGS: LUNGS: A recently described new 5 mm left upper lobe nodule on CT chest from 06/03/2023 is resolved, consistent with infectious/inflammatory etiology. A solid irregular 7 mm left upper lobe nodule (6:252) is similar to slightly increased from 5 mm. A micronodule in the right lower lobe (6:328) is new. An intrabronchial nodule, possibly mucous secretion in the lingula (6:362) is new. Numerous additional pulmonary nodules are not convincingly changed, for example a 6 mm solid nodule in the lingula (6:361), a 1.1 x 0.8 cm solid nodule with lobulated margins in the right apex (6:84), a 6 mm solid nodule in the right lower lobe with pleural connection (6:282) and a 7 mm solid nodule in the anterior left upper lobe (6:130). Multiple regions of tree-in-bud nodules are stable, for example left lower lobe (6:320) and right middle lobe (6:291). Biapical pleuroparenchymal nodular-like thickening, right greater than left, is unchanged. Upper lobe predominant reticulonodular septal thickening with peripheral reticulation is not significantly changed. Chronic bronchial wall thickening with scattered mucous plugging. MEDIASTINUM: Normal heart size. No pericardial effusion. No mediastinal or hilar lymphadenopathy. One change 1.2 cm right-sided thyroid nodule, for which no imaging follow-up is recommended. Severe atherosclerotic disease of the thoracic aorta which is of normal diameter. CORONARY ARTERY CALCIFICATION: Severe multivessel coronary artery calcifications. PLEURA: No pleural effusion or pneumothorax. AXILLA: Redemonstration of bilateral dense breasts with a multinodular appearance which will be better assessed with dedicated breast imaging. No axillary lymphadenopathy. UPPER ABDOMEN: Unremarkable. OSSEOUS STRUCTURES: Chronic deformity of the right humeral head. Chronic nondisplaced bilateral rib deformities. Thoracic spondylosis with diffuse idiopathic skeletal hyperostosis. CT/CT chest wo IV con IMPRESSION: A recently described new 5 mm left upper lobe nodule on CT chest from 06/03/2023 is resolved, consistent with infectious/inflammatory etiology. A 7 mm solid irregular nodule in the left upper lobe is similar to slightly increased from 5 mm. A micronodule in the right lower lobe is new. Numerous additional pulmonary nodules are not convincingly changed. Recommend follow-up with CT chest in 3 months with attention to the interval changes as well as the largest stable nodules. Background of chronic upper lobe predominant reticulonodular septal thickening, peripheral reticulation, bronchial wall thickening, scattered mucus impaction and pleural-based scarring. Recommend clinical correlation for underlying interstitial lung disease and pulmonary fibrosis. Stable dense bilateral breast tissues with diffuse nodularities. If not recently obtained, evaluation with dedicated breast imaging is advised. Electronically signed by: Marcie Dhillon MD 01/18/2024 12:44 PM EDT
== END 2023-12-16 12:49 | disposition home or self-care (01) ==
LOC: HO.CT 12:48
PROVIDERS: PCP Internal Medicine; Visit Provider Internal Medicine
DX: R91.8 Other nonspecific abnormal finding of lung field (principal)
CPT/HCPCS: 71250

== ENCOUNTER 2024-01-17 12:16 | Outpatient (AMB) | payer MEDICARE, SELFPAY ==
[2024-01-17 12:29] VITALS: BP 130/64; PULSE 55; O2SAT 97; BMI 21.3
--- NOTE | 2024-01-17 12:29 | MHC.PC.OV ---
Vital Signs 01/17/24 12:29 Height 5 ft 4 in Weight 124 lb BMI 21.3 BP 130/64 Blood Pressure Location Lt brachial Position Sitting Pulse 55 Pulse Source Pulse Oximeter Pulse Oximetry (%) 97 Oxygen Delivery Method Room Air Intake Visit Reasons: 6M F/U Intake Note: Pt is here today for her 6mo. f/u Allergies cat dander [CATS] Allergy (Severe, Verified 01/17/24 12:32) DIFFICULTY BREATHING gluten Allergy (Severe, Uncoded 01/17/24 12:32) unk Medication List - Last Reconciled 01/17/24 by Betty Don MD albuterol sulfate 90 mcg/actuation (ProAir HFA) 1 inh inhalation QID PRN amlodipine 2.5 mg PO DAILY atorvastatin 20 mg PO BEDTIME calcium carbonate-vitamin D3 600 mg-5 mcg (200 unit) 1 tab PO DAILY cholecalciferol (vitamin D3) 25 mcg PO DAILY fluticasone propion-salmeterol 100-50 mcg/dose (Advair Diskus) 1 inh inhalation BID melatonin 5 mg PO BEDTIME PRN multivitamin 1 tab PO QAM Tobacco use date assessed: 01/17/24 Fall risk assessment: No Falls in past year Last assessed Fall Risk: 01/17/24 Dental Screening Dental Screen Date: 01/17/24 Did you have a dental visit in the last 12 months?: Yes Did you have a dental problem in the last 6 months where you did not have access to dental care?: No Was dental information given to patient?: Patient has dentist HPI 6M F/U HPI Details Patient presents for the follow-up on hypertension hyperlipidemia chronic asthma stable on current medications. She is going to [place] to her daughter for the winter. [facility] Medical History (Updated 01/17/24 @ 13:28 by Betty Don MD) Vitamin D deficiency Non-rheumatic mitral regurgitation Hyperlipidemia Annual physical exam Prolapse of female pelvic organs HTN (hypertension) Osteoporosis Celiac sprue Asthma Surgical History Hx of cataract extraction H/O colonoscopy Family History Father CVD (cardiovascular disease) Mother Oral cancer Brother Myocardial infarction Social History Housing: Apartment Alcohol intake: current Alcohol intake frequency: holidays/special occasions only Patient Tobacco Use Status: Former Tobacco user e-Cigarette/Vaping Use: Never Used Advance Directives Date on File: 03/16/22 service: No 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al status: retired 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 1. Little interest or pleasure in doing things: not at all 2. Feeling down, depressed, or hopeless: not at all 3. Trouble falling or staying asleep, or sleeping too much: several days 4. Feeling tired or having little energy: several days 5. Poor appetite or overeating: not at all 6. Feeling bad about yourself - or that you are a failure or have let yourself or your family down: not at all 7. Trouble concentrating on things, such as reading the newspaper or watching television: not at all 8. Moving or speaking so slowly that other people could have noticed. Or the opposite - being so fidgety or restless that you have been moving around a lot more than usual: not at all 9. Thoughts that you would be better off or of hurting yourself in some way: not at all Total score: 2 Depression Screening Interpretation: Negative Depression Screening Done: Yes 10173 - PHQ-9 Billing: Yes Source: Developed by Drs. Isreal Ibrahim, Tomeka Barber, Dominick Grullon and colleagues, with an educational courtney from [employer]. Thrive Questionnaire Date Thrive assessed: 01/17/24 I am a: Patient What is your living situation today?: I have a steady place to live Within the past 12 months, did the food you bought not last and you didn't have the money to get more?: Never true Within the past 12 months, did you worry whether your food would run out before you got money to buy more?: Never true Do you have trouble paying for medicines?: No Do you have trouble getting transportation to medical appointments?: No Do you have trouble paying your heating and electricity bill?: No Do you have trouble taking care of your child, family member or friend?: I choose not to answer this question Do you have trouble with day-to-day activities such as bathing, preparing meals, shopping, managing finances, etc.?: No Are you interested in more education?: No Please select the resources that you would like help with: None Currently or been in a relationship where the following occur: No concerns reported THRIVE Score: 0 AUDIT C Alcohol Use Questionnaire (AUDIT-C) 1. How often do you have a drink containing alcohol?: 4 or more times a week 2. How many drinks containing alcohol do you have on a typical day when you are drinking?: 1 or 2 3. How often do you have six or more drinks on one occasion?: Never Total Score: 4 NIKITA-7 AMB Questionnaire NIKITA-7 Date NIKITA - 7 assessed: 01/17/24 Feeling nervous, anxious, or on edge: 0 = Not at all Not being able to stop or control worryin = Not at all Worrying too much about different things: 0 = Not at all Trouble relaxin = Not at all Being so restless that it is hard to sit still: 0 = Not at all Becoming easily annoyed or irritable: 0 = Not at all Feeling afraid as if something awful might happen: 0 = Not at all Total NIKITA-7 score (0-4 normal; 5-9 mild; 10-14 moderate; 15-21 severe): 0 Source: Developed by Drs. Isreal Ibrahim, Tomeka Barber, Dominick Grullon and colleagues, with an educational courtney from [employer]. Review of Systems Const All systems reviewed & are unremarkable except as noted in HPI and below Eyes Reports no additional complaints ENT Reports no additional complaints Card Reports no additional complaints Resp Reports no additional complaints GI Reports no additional complaints Reports no additional complaints Physical exam (Primary Care) Vital Signs: Last Vital Signs Pulse 55 01/17/24 12:29 BP 130/64 01/17/24 12:29 Pulse Ox 97 01/17/24 12:29 Oxygen Delivery Method Room Air 01/17/24 12:29 BMI result Body Mass Index 21.3 Tobacco/Smoking Status: Tobacco use Status Tobacco use date assessed 01/17/24 01/17/24 12:35 Patient Tobacco Use Status Former Tobacco user 01/17/24 12:35 e-Cigarette/Vaping Use Never Used 01/17/24 12:35 PHQ-9: PHQ-9 Score PHQ-9: Total score 2 01/17/24 12:35 Depression Screening Interpretation: Negative Thrive Assessment: Date of Thrive Assessment Date Thrive assessed 01/17/24 01/17/24 12:35 Currently or been in a relationship where the following occur: No concerns reported Const General: no acute distress HENMT Ears: hearing grossly normal bilaterally Eyes General: appearance normal, both eyes and all related structures Resp Effort & Inspection: normal respiratory effort Auscultation: clear to auscultation bilaterally Cardio Rhythm: regular rhythm Heart sounds: S1 normal heart sound present and S2 normal heart sound present GI Inspection: Yes normal to inspection Palpation (GI): Soft to palpation Percussion: Yes normal to percussion Assessment and Plan Assessment & Plan (1) Asthma: Code(s): J45.909 - Unspecified asthma, uncomplicated Plan: Continue Advair as needed (2) HTN (hypertension): Code(s): I10 - Essential (primary) hypertension Plan: Continue Amlodipine (3) Hyperlipidemia: Code(s): E78.5 - Hyperlipidemia, unspecified Plan: Continue statin (4) Osteoporosis: Comment: DEXA: 07/2017, took Fosomax for >5 year 2009, started Prolia 11/2019, DEXA 08/08 osteopenia , last Prolia 02/07, recheck DEXA 08/2023 stable, Code(s): M81.0 - Age-related osteoporosis without current pathological fracture Plan: Continue vitamin D supplement and regular weight-bearing exercises (5) Vitamin D deficiency: Code(s): E55.9 - Vitamin D deficiency, unspecified (6) Lung nodules: Comment: stable 1 cm nodule but new [address] 06/12 recheck in 6 months Code(s): R91.8 - Other nonspecific abnormal finding of lung field Orders: Orders Comprehensive [place]. Panel Fast 7 Months E55.9 - Vitamin D deficiency, unspecified, E78.5 - Hyperlipidemia, unspecified, I10 - Essential (primary) hypertension, J45.909 - Unspecified asthma, uncomplicated, R91.8 - Other nonspecific abnormal finding of lung field Complete Blood Count Auto Diff 7 Months E55.9 - Vitamin D deficiency, unspecified, E78.5 - Hyperlipidemia, unspecified, I10 - Essential (primary) hypertension, J45.909 - Unspecified asthma, uncomplicated, R91.8 - Other nonspecific abnormal finding of lung field Lipid Panel 7 Months E55.9 - Vitamin D deficiency, unspecified, E78.5 - Hyperlipidemia, unspecified, I10 - Essential (primary) hypertension, J45.909 - Unspecified asthma, uncomplicated, R91.8 - Other nonspecific abnormal finding of lung field Vitamin D 25-OH Total 7 Months E55.9 - Vitamin D deficiency, unspecified, E78.5 - Hyperlipidemia, unspecified, I10 - Essential (primary) hypertension, J45.909 - Unspecified asthma, uncomplicated, R91.8 - Other nonspecific abnormal finding of lung field Coding Level of Care Code Est Pt Level 4 (43994) Diagnoses Asthma J45.909 HTN (hypertension) I10 Hyperlipidemia E78.5 Osteoporosis M81.0 Vitamin D deficiency E55.9 Lung nodules R91.8
== END 2024-01-17 13:25 | disposition home or self-care (01) ==
PROVIDERS: PCP Internal Medicine; Visit Provider Internal Medicine
DX: J45.909 Unspecified asthma, uncomplicated (principal); I10 Essential (primary) hypertension; E78.5 Hyperlipidemia, unspecified; M81.0 Age-related osteoporosis without current pathological fracture; E55.9 Vitamin D deficiency, unspecified; R91.8 Other nonspecific abnormal finding of lung field

== ENCOUNTER → 2024-01-17 12:16 | Outpatient (BNVA) | payer MEDICARE, SELFPAY | PROVIDERS: PCP Internal Medicine; Visit Provider Internal Medicine | DX: J45.909 Unspecified asthma, uncomplicated (principal); I10 Essential (primary) hypertension; E78.5 Hyperlipidemia, unspecified; M81.0 Age-related osteoporosis without current pathological fracture; R91.8 Other nonspecific abnormal finding of lung field; E55.9 Vitamin D deficiency, unspecified | CPT/HCPCS: 99212 ==

== ENCOUNTER 2024-07-12 08:05 | Outpatient (REF) | payer MEDICARE, SELFPAY ==
[2024-07-12 08:34] LABS: MANUAL DIFF FLAG NO
[2024-07-12 08:43] LABS: Basophils Absolute Auto 0.1 X10*3/uL (0.0-0.2); Basophils Percent Auto 0.6 % (0-2); Eosinophils Absolute Auto 0.3 X10*3/uL (0.0-0.4); Eosinophils Percent Auto 3.9 % (0-4); Hematocrit 38.7 % (37.0-47.0); Hemoglobin 12.6 g/dl (12.0-16.0); Imm Gran Abs Auto 0.02 X10*3/uL (0.00-0.03); Imm Gran Pct Auto 0.3 % (0.0-0.4); Lymphocytes Absolute Auto 1.6 X10*3/uL (1.2-4.9); Lymphocytes Percent Auto 20.7 % (20-40); Mean Corpuscular HGB Conc 32.6 g/dl (31.0-35.0); Mean Corpuscular Hemoglobin 28.2 pg (27.0-33.0); Mean Corpuscular Volume 86.6 fL (80.0-98.0); Mean Platelet Volume 11.6 fL (9.4-12.3); Monocytes Absolute Auto 0.7 X10*3/uL (0.1-1.2); Monocytes Percent Auto 9.2 % (2-11); Neutrophils Absolute Auto 5.1 x10*3/uL (2.0-8.3); Neutrophils Percent Auto 65.3 % (45-73); Platelet Count 160 X10*3/uL (160-400); Red Blood Count 4.47 X10*6/uL (4.20-5.50); White Blood Count 7.7 X10*3/uL (4.8-10.8)
[2024-07-12 09:13] LABS: Alanine Aminotransferase 20 U/L (0-31); Albumin Level 3.9 g/dL (3.5-5.0); Alkaline Phosphatase 44 U/L (39-117); Anion Gap 8 (12-20); Aspartate Amino Transferase 27 U/L (5-31); Bilirubin Total 0.6 mg/dL (0.0-1.0); Blood Urea Nitrogen 14 mg/dL (9-16); Calcium 9.4 mg/dL (8.4-10.2); Carbon Dioxide 27 mmol/L (22-29); Chloride 108 mmol/L (96-108); Cholesterol 144 mg/dL (<200); Estimated Glomerular Filt Rate > 60; Glucose Fasting 98 mg/dL (60-99); HDL Cholesterol 71 mg/dL (>40); LDL Cholesterol Calculated 63 mg/dL (<100); Sodium 139 mmol/L (135-145); Triglycerides 53 mg/dL (<150)
[2024-07-12 09:29] LABS: Vitamin D 25-OH Total 63.9 ng/mL (>30)
== END 2024-07-12 08:06 | disposition home or self-care (01) ==
LOC: HO.LAB 08:05
PROVIDERS: PCP Internal Medicine; Visit Provider Internal Medicine
DX: R91.8 Other nonspecific abnormal finding of lung field (principal); I10 Essential (primary) hypertension; E78.5 Hyperlipidemia, unspecified; J45.909 Unspecified asthma, uncomplicated; E55.9 Vitamin D deficiency, unspecified
CPT/HCPCS: 36415; 80053; 80061; 82306; 85025

== ENCOUNTER 2024-07-17 13:37 | Outpatient (AMB) | payer MEDICARE, SELFPAY ==
[2024-07-17 14:00] VITALS: BP 122/60; PULSE 64; RESP 18; TEMP 36.7; O2SAT 95; BMI 20.8
--- NOTE | 2024-07-17 14:00 | MHC.PC.OV ---
Vital Signs 07/17/24 14:00 Height 5 ft 4 in Weight 121 lb BMI 20.8 BP 122/60 Blood Pressure Location Rt brachial Position Sitting Respiration 18 Pulse 64 Pulse Source Pulse Oximeter Temp 98.0 F Temp Source Oral Pulse Oximetry (%) 95 Oxygen Delivery Method Room Air Intake Visit Reasons: 6 month follow up Intake Note: Pt is here today for 6 months follow up visit. Allergies cat dander [CATS] Allergy (Severe, Verified 07/17/24 14:02) DIFFICULTY BREATHING gluten Allergy (Severe, Uncoded 07/17/24 14:02) unk Medication List - Last Reconciled 07/17/24 by Betty Don MD albuterol sulfate 90 mcg/actuation (ProAir HFA) 1 inh inhalation QID PRN amlodipine 2.5 mg PO DAILY atorvastatin 20 mg PO BEDTIME calcium carbonate-vitamin D3 600 mg-5 mcg (200 unit) 1 tab PO DAILY cholecalciferol (vitamin D3) 25 mcg PO DAILY fluticasone propion-salmeterol 100-50 mcg/dose (Advair Diskus) 1 inh inhalation BID melatonin 5 mg PO BEDTIME PRN multivitamin 1 tab PO QAM Tobacco use date assessed: 07/17/24 Fall risk assessment: No Falls in past year Last assessed Fall Risk: 07/17/24 Dental Screening Dental Screen Date: 07/17/24 Did you have a dental visit in the last 12 months?: Yes Did you have a dental problem in the last 6 months where you did not have access to dental care?: No Was dental information given to patient?: Patient has dentist HPI 6 month follow up HPI Details Patient presents for the follow-up on hypertension hyperlipidemia chronic asthma stable on current medications [facility] Medical History Vitamin D deficiency Non-rheumatic mitral regurgitation Hyperlipidemia Annual physical exam Prolapse of female pelvic organs HTN (hypertension) Osteoporosis Celiac sprue Asthma Surgical History Hx of cataract extraction H/O colonoscopy Family History Father CVD (cardiovascular disease) Mother Oral cancer Brother Myocardial infarction Social History Housing: Apartment Alcohol intake: current Alcohol intake frequency: holidays/special occasions only Patient Tobacco Use Status: Former Tobacco user e-Cigarette/Vaping Use: Never Used Advance Directives Date on File: 03/16/22 service: No 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al status: retired 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 1. Little interest or pleasure in doing things: not at all 2. Feeling down, depressed, or hopeless: not at all 3. Trouble falling or staying asleep, or sleeping too much: not at all 4. Feeling tired or having little energy: not at all 5. Poor appetite or overeating: not at all 6. Feeling bad about yourself - or that you are a failure or have let yourself or your family down: not at all 7. Trouble concentrating on things, such as reading the newspaper or watching television: not at all 8. Moving or speaking so slowly that other people could have noticed. Or the opposite - being so fidgety or restless that you have been moving around a lot more than usual: not at all 9. Thoughts that you would be better off or of hurting yourself in some way: not at all Total score: 0 Depression Screening Interpretation: Negative Depression Screening Done: Yes 97677 - PHQ-9 Billing: Yes Source: Developed by Drs. Isreal Ibrahim, Tomeka Barber, Dominick Grullon and colleagues, with an educational courtney from [employer]. Thrive Questionnaire Date Thrive assessed: 07/17/24 I am a: Patient What is your living situation today?: I have a steady place to live Within the past 12 months, did the food you bought not last and you didn't have the money to get more?: Never true Within the past 12 months, did you worry whether your food would run out before you got money to buy more?: Never true Do you have trouble paying for medicines?: No Do you have trouble getting transportation to medical appointments?: No Do you have trouble paying your heating and electricity bill?: No Do you have trouble taking care of your child, family member or friend?: No Do you have trouble with day-to-day activities such as bathing, preparing meals, shopping, managing finances, etc.?: No Are you currently unemployed and looking for a job?: No Are you interested in more education?: No Please select the resources that you would like help with: None Currently or been in a relationship where the following occur: No concerns reported THRIVE Score: 0 AUDIT C Alcohol Use Questionnaire (AUDIT-C) 1. How often do you have a drink containing alcohol?: 4 or more times a week 2. How many drinks containing alcohol do you have on a typical day when you are drinking?: 1 or 2 3. How often do you have six or more drinks on one occasion?: Never Total Score: 4 NIKITA-7 AMB Questionnaire NIKITA-7 Date NIKITA - 7 assessed: 07/17/24 Feeling nervous, anxious, or on edge: 0 = Not at all Not being able to stop or control worryin = Not at all Worrying too much about different things: 0 = Not at all Trouble relaxin = Not at all Being so restless that it is hard to sit still: 0 = Not at all Becoming easily annoyed or irritable: 0 = Not at all Feeling afraid as if something awful might happen: 0 = Not at all Total NIKITA-7 score (0-4 normal; 5-9 mild; 10-14 moderate; 15-21 severe): 0 Source: Developed by Drs. Isreal Ibrahim, Tomeka Barber, Dominick Grullon and colleagues, with an educational courtney from [employer]. NIKITA-7 Assessment Billing NIKITA-7 Assessment Tool: NIKITA-7 Assessment 67058 Review of Systems Const All systems reviewed & are unremarkable except as noted in HPI and below Eyes Reports no additional complaints ENT Reports no additional complaints Card Reports no additional complaints Resp Reports no additional complaints GI Reports no additional complaints Reports no additional complaints Physical exam (Primary Care) Vital Signs: Last Vital Signs Temp 98.0 F 07/17/24 14:00 Pulse 64 07/17/24 14:00 Resp 18 07/17/24 14:00 BP 122/60 07/17/24 14:00 Pulse Ox 95 07/17/24 14:00 Oxygen Delivery Method Room Air 07/17/24 14:00 BMI result Body Mass Index 20.8 Tobacco/Smoking Status: Tobacco use Status Tobacco use date assessed 07/17/24 07/17/24 14:07 Patient Tobacco Use Status Former Tobacco user 07/17/24 14:00 e-Cigarette/Vaping Use Never Used 07/17/24 14:00 PHQ-9: PHQ-9 Score PHQ-9: Total score 0 07/17/24 14:07 Depression Screening Interpretation: Negative Thrive Assessment: Date of Thrive Assessment Date Thrive assessed 07/17/24 07/17/24 14:07 Currently or been in a relationship where the following occur: No concerns reported Const General: no acute distress HENMT Head: Yes normal to inspection Mouth: Normal oral and palatal mucosa present Eyes General: appearance normal, both eyes and all related structures Resp Effort & Inspection: normal respiratory effort Auscultation: clear to auscultation bilaterally Cardio Rhythm: regular rhythm Heart sounds: S1 normal heart sound present and S2 normal heart sound present GI Inspection: Yes normal to inspection Palpation (GI): Soft to palpation Percussion: Yes normal to percussion Coding Level of Care Code Est Pt Level 4 (13544) Diagnoses Lung nodules R91.8 HTN (hypertension) I10 Hyperlipidemia E78.5 Additional Codes NIKITA-7 Assessment Billing - NIKITA-7 Assessment Tool: NIKITA-7 Assessment 08936 ([id number]) PHQ-9 - 47973 - PHQ-9 Billing: Yes ([id number]) Assessment & Plan Assessment & Plan (1) Lung nodules: Comment: stable 1 cm nodule but new [address] 06/12 recheck in 6 months Code(s): R91.8 - Other nonspecific abnormal finding of lung field Category: Medical Plan: Repeat CT of the chest to follow-up on new lung nodule on most recent CT in Mar (2) HTN (hypertension): Code(s): I10 - Essential (primary) hypertension Category: Medical Plan: Continue Amlodipine (3) Hyperlipidemia: Code(s): E78.5 - Hyperlipidemia, unspecified Category: Medical Plan: Continue statin Orders: Orders CT chest w IV con Today R91.8 - Other nonspecific abnormal finding of lung field CT chest wo IV con Today R91.8 - Other nonspecific abnormal finding of lung field
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
== END 2024-07-17 15:04 | disposition home or self-care (01) ==
LOC: HO.HMCC 13:38
PROVIDERS: PCP Internal Medicine; Visit Provider Internal Medicine
DX: R91.8 Other nonspecific abnormal finding of lung field (principal); I10 Essential (primary) hypertension; E78.5 Hyperlipidemia, unspecified

== ENCOUNTER → 2024-07-17 13:37 | Outpatient (BNVA) | payer MEDICARE, SELFPAY | PROVIDERS: PCP Internal Medicine; Visit Provider Internal Medicine | DX: R91.8 Other nonspecific abnormal finding of lung field (principal); E78.5 Hyperlipidemia, unspecified; I10 Essential (primary) hypertension | CPT/HCPCS: 96127; 99212 ==

== ENCOUNTER 2024-08-21 07:20 | Outpatient (REF) | payer MEDICARE, SELFPAY ==
--- NOTE | ~2024-08-21 | CT_ITS ---
EXAMINATION: CT CHEST WITHOUT IV CONTRAST INDICATION: R91.8 - Other nonspecific abnormal finding of lung field COMPARISON: Comparison is made with the prior examination dated 12/16/2023. TECHNIQUE: Helical CT scan of the chest was performed without intravenous contrast. Coronal and sagittal reformatted images were generated and reviewed. This CT exam was performed with one or more of the following dose reduction techniques: automated exposure control, adjustment of the mA and/or kV according to patient size, use of iterative reconstruction technique. DLP: 111 mGy-cm CHEST: THYROID: The thyroid is unremarkable. LUNGS: Again seen is a 10 x 8 mm nodule at the right lung apex (series 4, image 20). This is similar in size to prior studies dating back to 03/02/2023. There is a 6 mm nodule in the left upper lobe (series 4, image 35 without significant change. A 3 mm nodule in the right lower lobe (series 4, image 70. There is an additional ovoid lingular nodule without change (series 4, image 94). Scarring right upper and middle lobes and in the lingula. MEDIASTINUM: There is no mediastinal lymphadenopathy. KERRIE: Evaluation of the hilar regions is limited by lack of intravenous contrast material. CARDIOVASCULATURE: The heart is normal in size. There is no pericardial effusion. The thoracic aorta demonstrates atherosclerotic calcification, but is normal in caliber. DEGREE OF CORONARY CALCIFICATION: severe PLEURA: There is no pleural effusion. No pneumothorax. MAIN AIRWAYS: The mainstem bronchi and proximal branches are patent. AXILLA: There is no axillary lymphadenopathy. BONES AND SOFT TISSUES: Again seen is asymmetric density in the outer right breast. There is degenerative disc disease of the spine. UPPER ABDOMEN: The visualized portions of the liver, spleen, and adrenals have an unremarkable unenhanced appearance. CT/CT chest wo IV con IMPRESSION: 1. Stable bilateral pulmonary nodules as described. Continued follow-up is recommended. 2. Asymmetric tissue in the outer right breast is again noted. Correlation with mammography and breast ultrasound is recommended if this has not recently been performed. Electronically signed by: Isreal Haddad MD 08/21/2024 08:35 AM EDT
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
--- OUTSIDE RECORDS SUMMARY | 2024-08-21 07:23 | XMS_ITS | Patient Health Record ---
Author Organization [email or web address] Address [address] [place] [address] Care Team Providers Care Punch Card Operator Name Role Phone DEMETRICE GAN D.O. Primary Care Provider Ritika Brown Unavailable [phone] Reason For Referral No Information Medications Medication [...] W/U Status Risk Notes Problem Menopausal symptom (05805188) Symptomatic menopausal or female climacteric states (627.2) Active confirmed Major Problem Osteoporosis (14822438) Unspecified osteoporosis (733.00) Active confirmed Diag Problem Gynecological examination normal (713221199215506) Routine gynecological examination (V72.31) Active confirmed Diag Problem Screening for malignant neoplasm of cervix (649966711) Screening for malignant neoplasm of the cervix (V76.2) Active confirmed Diag Problem Screening for malignant neoplasm of colon (386346555) Special screening for malignant neoplasms, colon (V76.51) Active confirmed Major Plan Of Treatment Pending Test Test Name Order Date MAMMOGRAM, SCREENING 10/10/2015 Insurance Providers Payer Name Payer Address Payer Phone Subscriber Number Group Number Insured Name Patient Relationship to Insured Coverage Start Date Coverage End Date MEDICARE [address] [place], [place] [phone] [id number] YUE LINK Self - patient is the insured [facility] [address] [address] [place] [phone] [id number] YUE LINK Self - patient is the [...]
== END 2024-08-21 07:21 | disposition home or self-care (01) ==
LOC: HO.CT 07:20
PROVIDERS: PCP Internal Medicine; Visit Provider Internal Medicine
DX: R91.8 Other nonspecific abnormal finding of lung field (principal)
CPT/HCPCS: 71250

== ENCOUNTER → 2024-08-21 07:22 | Outpatient (BNV) | payer MEDICARE, SELFPAY | PROVIDERS: PCP Internal Medicine; Visit Provider Radiology Diagnostic Radiology | DX: R91.8 Other nonspecific abnormal finding of lung field (principal) | CPT/HCPCS: 71250 ==

== ENCOUNTER 2024-08-29 08:22 | Outpatient (REF) | payer MEDICARE, SELFPAY ==
--- NOTE | ~2024-08-29 | XR_ITS ---
EXAMINATION: XR CHEST CLINICAL INFORMATION: R05.9 - Cough, unspecified COMPARISON: August 12, 2020 TECHNIQUE: 2 views of the chest were obtained. FINDINGS: Hyperinflated lungs. Bilateral apical lung scarring. Pulmonary reticular pattern. No consolidation, pleural effusion or pneumothorax. Cardiomediastinal silhouette size is normal. Calcified plaque thoracic aortic arch. Calcification in the mitral valve region. Osteopenia versus osteoporosis with the ossification throughout the anterior longitudinal ligament in incomplete ankylosis. 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 Calcified mitral valve. Electronically signed by: Sang Champagne MD 08/29/2024 10:02 AM EDT
== END 2024-08-29 08:23 | disposition home or self-care (01) ==
LOC: HO.HMGCX 08:22
PROVIDERS: PCP Internal Medicine; Visit Provider Physician Assistant
DX: R05.9 Cough, unspecified (principal)
CPT/HCPCS: 71046; 99212

== ENCOUNTER 2024-08-29 08:22 | Outpatient (AMB) | payer MEDICARE, SELFPAY ==
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
--- OUTSIDE RECORDS SUMMARY | 2024-08-29 08:32 | XMS_ITS | Patient Health Record ---
Author Organization [facility] Address [address] [place] [address] Care Team Providers Care Concrete Buildings Assembler Name Role Phone DEMETRICE GAN D.O. Primary Care Provider Ritika Brown Unavailable [phone] Reason For Referral No Information Medications Medication [...] W/U Status Risk Notes Problem Menopausal symptom (32397155) Symptomatic menopausal or female climacteric states (627.2) Active confirmed Major Problem Osteoporosis (00373629) Unspecified osteoporosis (733.00) Active confirmed Diag Problem Gynecological examination normal (901834942417536) Routine gynecological examination (V72.31) Active confirmed Diag Problem Screening for malignant neoplasm of cervix (727744372) Screening for malignant neoplasm of the cervix (V76.2) Active confirmed Diag Problem Screening for malignant neoplasm of colon (125392616) Special screening for malignant neoplasms, colon (V76.51) Active confirmed Major Plan Of Treatment Pending Test Test Name Order Date MAMMOGRAM, SCREENING 10/10/2015 Insurance Providers Payer Name Payer Address Payer Phone Subscriber Number Group Number Insured Name Patient Relationship to Insured Coverage Start Date Coverage End Date MEDICARE [address] [place], [place] [phone] [id number] YUE LINK Self - patient is the insured [facility] [address] [address] [place] [phone] [id number] YUE LINK Self - patient is the [...]
[2024-08-29 09:01] VITALS: BP 122/68; PULSE 70; TEMP 37.3; O2SAT 93; BMI 20.8
--- NOTE | 2024-08-29 09:01 | AM.OFFWIN_ITS ---
Intake Vital Signs 08/29/24 09:01 Height 5 ft 4 in Weight 121 lb BMI 20.8 BP 122/68 Blood Pressure Location Rt brachial Position Sitting Pulse 70 Pulse Source Pulse Oximeter Temp 99.1 F Temp Source Oral Pulse Oximetry (%) 93 Oxygen Delivery Method Room Air Intake Visit Reasons: EP-ashma Patient Tobacco Use Status: Former Tobacco user Allergies cat dander [CATS] Allergy (Severe, Verified 08/29/24 09:01) DIFFICULTY BREATHING gluten Allergy (Severe, Uncoded 07/17/24 14:02) unk Do you need a note to return to daycare/school/sports/work: No HPI HPI Comments History of Present Illness Details History - The patient is an 84-year-old female p resenting with cough, shortness of breath with exertion, and wheezing. - Symptoms began four days ago and have persisted. - The patient has a known history of ast hma. - Current medication use includes Advair and an albuterol inhaler, though the inhaler is past its expiration date since December. - She has not experienced fever, headach e, fatigue, ear pain, or sinus pain. Physical Exam General: Cooperative, healthy appearing, comfortable and no acute distress Orientation/consciousness: Patient oriented x3 Limitations: No limitations Head: Normal to inspection Ears: Hearing grossly normal bilaterally, external ears normal and TM's normal bilaterally Nose: Normal external nose present, Normal nares present and No nasal discharge present Face and sinus: Normal facial exam and Yes sinuses nontender Mouth: Normal oral and palatal mucosa present and moist mucous membranes Throat: Yes tonsils normal, Yes uvula midline. Posterior oropharynx erythema Eyes: Appearance normal, both eyes and all related structures Neck: Normal visual inspection Respiratory: Exp wheezes with some rhonchi. Normal respiratory effort, able to speak in complete sentences, Actively coughing, no respiratory distress, not tachypneic, no tripod positioning and no use of accessory muscles Cardiovascular: Regular rate and rhythm. Normal S1 and S2 Skin: No rashes or lesions noted Neuro: Patient oriented x3 Extremities: Normal to inspection and Yes no clubbing, cyanosis or edema PFSH Medical History Vitamin D deficiency Non-rheumatic mitral regurgitation Hyperlipidemia Annual physical exam Prolapse of female pelvic organs HTN (hypertension) Osteoporosis Celiac sprue Asthma Surgical History Hx of cataract extraction H/O colonoscopy Family History Father CVD (cardiovascular disease) Mother Oral cancer Brother Myocardial infarction Social History Housing: Apartment Alcohol intake: current Alcohol intake frequency: holidays/special occasions only Patient Tobacco Use Status: Former Tobacco user e-Cigarette/Vaping Use: Never Used Advance Directives Date on File: 03/16/22 service: No 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al status: retired 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 The patient will maintain her existing asthma regimen. As her inhaler is , it has been replaced to ensure effective asthma management. Prednisone is prescribed for its anti-inflammatory effects to relieve acute symptoms. A chest X-ray is ordered for further evaluation. I will follow up with her after her imaging to reassess and adjust treatment as required. Patient was informed and verbally consented to the use of an ambient scribe for clinic note documentation during this visit (2) Lower respiratory infection (e.g., bronchitis, pneumonia, pneumonitis, pulmonitis): Code(s): J22 - Unspecified acute lower respiratory infection Plan: as above Orders: Orders XR chest 2V Today R05.9 - Cough, unspecified Medications: New inhalational spacing device (BreatheRite MDI Spacer) As directed 1 ea 0RF albuterol sulfate 90 mcg/actuation 2 puffs inhalation Q6H PRN 8.5 grams 0RF shortness of breath or wheezing or cough prednisone 40 mg (2 x 20 mg) PO QAM 10 tabs 0RF Coding Level of Care Code Est Pt Level 4 (32571) Diagnoses Asthma exacerbation, mild J45.901 Lower respiratory infection (e.g., bronchitis, pneumonia, pneumonitis, pulmoniti s) J22
== END 2024-08-29 09:56 | disposition home or self-care (01) ==
PROVIDERS: PCP Internal Medicine; Visit Provider Physician Assistant
DX: J45.901 Unspecified asthma with (acute) exacerbation (principal); J22 Unspecified acute lower respiratory infection

== ENCOUNTER → 2024-08-29 09:42 | Outpatient (BNV) | payer MEDICARE, SELFPAY | PROVIDERS: PCP Internal Medicine; Visit Provider Radiology Diagnostic Radiology | DX: J84.9 Interstitial pulmonary disease, unspecified (principal) | CPT/HCPCS: 71046 ==

== ENCOUNTER 2024-09-01 12:16 | Emergency (ER) | payer MEDICARE, SELFPAY ==
--- NOTE | ~2024-09-01 | XR_ITS ---
EXAMINATION: XR CHEST CLINICAL INFORMATION: cough/sob COMPARISON: 08/29/2024. TECHNIQUE: 2 views of the chest were obtained. FINDINGS: The cardiac, hilar, and mediastinal contours are normal. There is calcification of the mitral annulus. There are aortic mural calcifications. Lungs are diffusely hyperaerated and hyperlucent. There is biapical pleural scarring. Lungs otherwise clear. There is no pneumothorax or pleural effusion. There is no focal osseous or soft tissue abnormality. There are degenerative changes throughout the spine. Old posttraumatic deformity right proximal humerus. XR/XR chest 2V IMPRESSION: 1. COPD. No active superimposed disease. Electronically signed by: Jevon Funez MD 09/01/2024 01:22 PM EDT RP
[2024-09-01 12:52] VITALS: BP 112/61; PULSE 76; RESP 18; TEMP 36.7; O2SAT 92; BMI 20.8
--- NOTE | 2024-09-01 12:52 | ED.SOB ---
HPI - SOB/Dyspnea General Chief Complaint: Dyspnea Stated Complaint: Diff W/Asthma Time Seen by Provider: 09/01/24 13:21 Source: patient Mode of arrival: ambulatory Limitations: no limitations History of Present Illness ED Provider: Erica Connors NP HPI Narrative: Patient is an 84-year-old female with reported past medical history of asthma, currently on Advair and albuterol inhaler, has rarely needed to use her albuterol inhaler and any recent past, has no nebulizer at home. Reports over the past few days she has been experiencing nonproductive cough, increased shortness of breath and wheezing. Symptoms have been ongoing for about 1 week. Three days ago she was evaluated at a walk-in clinic, states she was given a prescription for albuterol inhaler as well as prednisone for asthma exacerbation. She states that she has continued to not have any improvement. She was evaluated during initial rapid medical examination, and she received albuterol nebulizer prior to my evaluation and she states this is the best I have felt in days , endorsing that currently she feels significantly improved, in fact she feels well enough to be able to go home. She denies any fever, headache, fatigue, sore throat, chest pain, ear pain, sinus pain. Denies lower extremity redness pain or swelling, recent prolonged immobilization or travel. Related Data Home Medications ?Medication ?Instructions ?Recorded ?Confirmed calcium 600 mg (as 1 tab PO DAILY 03/14/22 07/17/24 carbonate)-vitamin D3 5 mcg (200 unit) tablet melatonin 5 mg tablet 5 mg PO BEDTIME PRN Insomnia 03/14/22 07/17/24 multivitamin 1 tab PO QAM 03/14/22 07/17/24 cholecalciferol (vitamin D3) 25 25 mcg PO DAILY 08/05/22 07/17/24 mcg (1,000 unit) capsule Previous Rx's ?Medication ?Instructions ?Recorded albuterol sulfate 90 mcg/actuation 1 inh inhalation QID PRN Shortness 08/05/22 aerosol inhaler (ProAir HFA) Of Breath Or Wheezing #8.5 grams atorvastatin 20 mg tablet 20 mg PO BEDTIME #90 tabs 01/17/24 amlodipine 2.5 mg tablet 2.5 mg PO DAILY #90 tabs 02/02/24 fluticasone 100 mcg-salmeterol 50 1 inh inhalation BID #180 ea 05/18/24 mcg/dose blistr powdr for inhalation (Advair Diskus) albuterol sulfate 90 mcg/actuation 2 puff inhalation Q6H PRN 08/29/24 aerosol inhaler shortness of breath or wheezing or cough #8.5 grams inhalational spacing device #1 ea 08/29/24 (BreatheRite MDI Spacer) prednisone 20 mg tablet 40 mg (2 x 20 mg) PO QAM #10 tabs 08/29/24 Allergies Allergy/AdvReac Type Severity Reaction Status Date / Time cat dander [CATS] Allergy Severe DIFFICULTY Verified 09/01/24 12:54 BREATHING gluten Allergy Severe unk Uncoded 09/01/24 12:54 Review of Systems Review of Systems: Yes all other systems are reviewed and are negative [facility] Past Medical History Attestation statement: The following information was validated with the patient. Source: old records reviewed Medical History Vitamin D deficiency Non-rheumatic mitral regurgitation Hyperlipidemia Annual physical exam Prolapse of female pelvic organs HTN (hypertension) Osteoporosis Celiac sprue Asthma Surgical History Hx of cataract extraction H/O colonoscopy Family History Family History Father CVD (cardiovascular disease) Mother Oral cancer Brother Myocardial infarction Social History Social History Housing: Apartment Alcohol intake: current Alcohol intake frequency: holidays/special occasions only Patient Tobacco Use Status: Former Tobacco user e-Cigarette/Vaping Use: Never Used Advance Directives: Yes Advance Directives on File: Yes Advance Directives Date on File: 03/16/22 Do you have a plan to hurt others: No Plan service: No 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al status: retired 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 No acute distress.?Normal affect. Eyes: Pupils equal, round and reactive to light.? ENT: Pharynx normal.?? Neck: Normal inspection.? Neck supple.?? CVS: Heart sounds normal. Normal heart rate and rhythm.? Pulses normal.?? Respiratory: No respiratory distress.? Lung sounds With mild inspiratory wheezing, more notable expiratory wheezing with slightly prolonged expiratory phase. Marrow O2 saturation 92-93% at rest Abdomen: Soft and non-tender. Normoactive bowel sounds. ? Skin: Skin warm and dry.? Normal skin color.? ? Extremities: No lower extremity edema.? No calf ttp? Neuro: Moves all extremities spontaneously. Sensation intact bilaterally. CN II-XII intact. No focal neuro deficits. Ambulates with normal steady gait. Course Course Course Narrative: This is a Rapid Medical Exam performed in triage by Anjelica Lowe PA-C. Full HPI, ROS and PE to be performed by primary ED provider. 84-year-old female with a past medical history of asthma presenting to the ED c/o asthma exacerbation x 3 days. Was seen at urgent care when Wednesday prescribed prednisone without relief PE: Coarse cough appreciated. Diffuse inspiratory and expiratory wheezing noted. Satting 92 on room air Plan: EKG, labs, CXR, viral testing, ED bronch protocol Medications Administered Discontinued Medications Generic Name Dose Route Start Last Admin Trade Name Freq PRN Reason Stop Dose Admin Albuterol Sulfate 2 puff 09/01/24 14:21 09/01/24 14:43 Albuterol Sulfate 90 Mcg 8 Gm Inhaler INHALE 09/01/24 14:22 2 puff ONCE ONE Administration Albuterol Sulfate 2.5 mg/ 0 mg 09/01/24 13:24 09/01/24 13:34 Albuterol/Ipratropium 3 ml INHALE 09/01/24 13:25 1 dose ONCE ONE Administration Medical Decision Making Medical Decision Making [facility] Narrative: patient is an 84-year-old female with past medical history of nonrheumatic mitral regurgitation, hyperlipidemia, hypertension, osteoporosis, asthma who presents emergency department for re-evaluation endorsing persistent asthma exacerbation despite being on prednisone albuterol inhaler over the past 3 days as per HPI. She received an albuterol nebulizer treatment prior to my evaluation and reports significant improvement in symptoms in fact she feels well enough to be able to go home at this time. She states that she has never required a nebulizer in the past, has not had evaluation from pulmonology for possible COPD. was evaluated at the walk-in clinic associated with this has been on 08/29/2024; diagnosed with asthma exacerbation was given steroid and lower respiratory infection with moderate asthma exacerbation, had CXR obtained, given prescription for albuterol inhaler as well as prednisone 40 mg daily for 5 days. prior to my assumption of care, had workup obtained from the medical examination revealing a mild leukocytosis 11,000 700, no significant anemia or thrombocytopenia. No electrolyte derangement. No JERMAINE. COVID-19/influenza/RSV testing is negative. Chest x-ray revealing findings consistent with COPD, no consolidation infiltrate to suggest pneumonia. EKG obtained today revealing a normal sinus rhythm with ventricular rate of 66, QTC 427, no ST-elevation. Wells score low risk, no tachycardic, lower suspicion for pulmonary embolism. Patient will be provided with albuterol inhaler and AeroChamber spacer in the emergency department instructed on usage as this may allow her to have greater benefit from the albuterol inhaler rather than using it without the spacer. Advised that she can speak with her primary care doctor regarding a nebulizer machine, in addition to pulmonology consultation. Her chest x-ray today without consolidation or infiltrate to suggest pneumonia, lungs diffusely hyperaerated hyperlucent with biapical pleural scarring, findings consistent with COPD per Radiologist. performed ambulatory with O2 trial in the emergency department 91% and higher, no dyspnea on exertion. At this time feel that she is stable for discharge home, all questions answered and strict return precautions were discussed. Differential Diagnosis Differential Diagnoses: The differential diagnosis associated with the presentation includes ( asthma exacerbation, COPD exacerbation, bronchitis) Admission/Observation Consideration of admission/observation: Escalation of care including admission/observation considered Lab Data MDM Lab Attestation statement: I reviewed the patient's lab results. ( see narrative above) 09/01/24 13:09 09/01/24 13:09 Labs: Lab Results 09/01/24 Range/Units 13:09 WBC 11.7 H (4.8-10.8) X10*3/uL RBC 4.32 (4.20-5.50) X10*6/uL Hgb 12.3 (12.0-16.0) g/dl Hct 36.7 L (37.0-47.0) % MCV 85.0 (80.0-98.0) fL MCH 28.5 (27.0-33.0) pg MCHC 33.5 (31.0-35.0) g/dl RDW 14.2 (11.0-16.0) % Plt Count 189 (160-400) X10*3/uL MPV 11.3 (9.4-12.3) fL Immature Gran % (Auto) 0.9 H (0.0-0.4) % Neut % (Auto) 90.5 H (45-73) % Lymph % (Auto) 7.0 L (20-40) % [place] % (Auto) 1.4 L (2-11) % Eos % (Auto) 0.0 (0-4) % Baso % (Auto) 0.2 (0-2) % Lymph # (Auto) 0.8 L (1.2-4.9) X10*3/uL [place] # (Auto) 0.2 (0.1-1.2) X10*3/uL Eos # (Auto) 0.0 (0.0-0.4) X10*3/uL Baso # (Auto) 0.0 (0.0-0.2) X10*3/uL Abs Immat Gran (auto) 0.11 H (0.00-0.03) X10*3/uL Absolute Neuts (auto) 10.6 H (2.0-8.3) x10*3/uL Absolute Nucleated RBC 0.000 (0.0-0.012) X10*3/uL Nucleated RBC % (auto) 0.0 (0.0-0.2) /100WBC Smear Tech's Comments VERIFIED Sodium 137 (135-145) mmol/L Potassium 4.0 (3.3-5.1) mmol/L Chloride 103 (96-108) mmol/L Carbon Dioxide 26 (22-29) mmol/L Anion Gap 12 (12-20) BUN 12 (9-16) mg/dL Creatinine 0.61 (0.5-1.4) mg/dL Estim Creat Clear Calc 60.3 Estimated GFR > 60 Random Glucose 163 H (60-115) mg/dL Calcium 9.4 (8.4-10.2) mg/dL Influenza Type A (PCR) NEGATIVE (Negative) Influenza Type B (PCR) NEGATIVE (Negative) RSV RNA Qual (PCR) NEGATIVE (Negative) SARS-CoV-2 RNA (RT-PCR) NEGATIVE (Negative) Independent Interpretation I performed an independent interpretation of an: Plain X-Ray ( see narrative above) Radiology Impression Discussion of test interpretation with radiology: I have reviewed the radiologist's reading. Radiologist Impression: XR/XR chest 2V IMPRESSION: 1. COPD. No active superimposed disease. External Record Review External record reviewed: Outpatient record Chronic Conditions Patient?s care impacted by: Other ( see narrative above) Discharge Plan Discharge Clinical Impression: Asthma with exacerbation Patient Disposition: Home, Self-Care Instructions: How to Use a Metered-Dose Inhaler and a Spacer (ED) Additional Instructions: You had significant improvement after receiving albuterol nebulizer in the emergency department. You have been provided with a spacer/AeroChamber to use with albuterol inhaler and hopes that this will allow for better efficacy of the inhaler medication. Continue taking your prednisone as prescribed. As discussed, testing today is otherwise unremarkable. Findings on chest x-ray are concerning for COPD, you should speak with your primary care doctor/pulmonology regarding further outpatient follow-up. Return to emergency department any new or worsening symptoms or concerns. Prescriptions: No Action atorvastatin 20 mg tablet 20 mg PO BEDTIME Qty: 90 3RF amlodipine 2.5 mg tablet 2.5 mg PO DAILY Qty: 90 3RF fluticasone propion-salmeterol [Advair Diskus] 100-50 mcg/dose blister with device 1 inh inhalation BID Qty: 180 3RF multivitamin Tablet 1 tab PO QAM calcium carbonate-vitamin D3 600 mg-5 mcg (200 unit) Tablet 1 tab PO DAILY melatonin 5 mg Tablet 5 mg PO BEDTIME PRN (Reason: Insomnia) cholecalciferol (vitamin D3) 25 mcg (1,000 unit) capsule 25 mcg PO DAILY albuterol sulfate [ProAir HFA] 90 mcg/actuation HFA aerosol inhaler 1 inh INHALATION QID PRN (Reason: Shortness Of Breath Or Wheezing) Qty: 8.5 2RF albuterol sulfate 90 mcg/actuation HFA aerosol inhaler 2 puff inhalation Q6H PRN (Reason: shortness of breath or wheezing or cough) Qty: 8.5 0RF (DME) BreatheRite MDI Spacer Spacer See Rx Instructions .MEDSUPPLY Qty: 1 0RF Rx Instructions: As directed prednisone 20 mg tablet 40 mg PO QAM Qty: 10 0RF Referrals: Erica Connors CNP [Emergency Midlevel Provider] - Betty Don MD [Primary Care Provider] - Mayito Garcia MD [Physician] - Interventions: ED Discharge Assessment Last Done: 09/01/24 14:51 Discharge Date/Time: 09/01/24 14:51 Print Language: Indian
--- NOTE | 2024-09-01 12:56 | ECG_ITS ---
Test Reason : sob Blood Pressure : */* mmHG Vent. Rate : 66 BPM Atrial Rate : 66 BPM P-R Int : 142 ms QRS Dur : 96 ms QT Int : 408 ms P-R-T Axes : 84 46 66 degrees QTcB Int : 427 ms Normal sinus rhythm Septal infarct (cited on or before 12-Aug-2020) Abnormal ECG When compared with ECG of 12-Aug-2020 13:15, No significant change was found Referred By: Anjelica Lowe Electronically Signed By: RODY CENTENO MD
[2024-09-01 13:20] LABS: Basophils Percent Auto 0.2 % (0-2); Hematocrit 36.7 % (37.0-47.0); Hemoglobin 12.3 g/dl (12.0-16.0); Imm Gran Abs Auto 0.11 X10*3/uL (0.00-0.03); Imm Gran Pct Auto 0.9 % (0.0-0.4); Lymphocytes Absolute Auto 0.8 X10*3/uL (1.2-4.9); MANUAL DIFF FLAG SCAN; Mean Corpuscular HGB Conc 33.5 g/dl (31.0-35.0); Mean Corpuscular Hemoglobin 28.5 pg (27.0-33.0); Mean Platelet Volume 11.3 fL (9.4-12.3); Monocytes Absolute Auto 0.2 X10*3/uL (0.1-1.2); Monocytes Percent Auto 1.4 % (2-11); Neutrophils Absolute Auto 10.6 x10*3/uL (2.0-8.3); Neutrophils Percent Auto 90.5 % (45-73); Platelet Count 189 X10*3/uL (160-400); Red Blood Count 4.32 X10*6/uL (4.20-5.50); Red Cell Distribution Width 14.2 % (11.0-16.0); SCAN SMEAR FLAG 1; White Blood Count 11.7 X10*3/uL (4.8-10.8)
[2024-09-01 13:28] LABS: Anion Gap 12 (12-20); Blood Urea Nitrogen 12 mg/dL (9-16); Calcium 9.4 mg/dL (8.4-10.2); Carbon Dioxide 26 mmol/L (22-29); Chloride 103 mmol/L (96-108); Creatinine Clr Calc Pharmacy 60.3; Estimated Glomerular Filt Rate > 60; Glucose Random 163 mg/dL (60-115); Sodium 137 mmol/L (135-145)
[2024-09-01 13:32] VITALS: PULSE 74; RESP 18; O2SAT 96
[2024-09-01] MEDS: Albuterol Sulfate 2.5 MG, Albuterol/Iprat 2.5/0.5MG 3 ML 3 ML INHALE (13:34)
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
--- OUTSIDE RECORDS SUMMARY | 2024-09-01 13:52 | XMS_ITS | Patient Health Record ---
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 Primary Care Provider Ritika Brown Unavailable [phone] Reason For Referral No Information Medications Medication [...] W/U Status Risk Notes Problem Menopausal symptom (71492098) Symptomatic menopausal or female climacteric states (627.2) Active confirmed Major Problem Unspecified osteoporosis (733.00) Active confirmed Diag Problem Gynecological examination normal (079308411618996) Routine gynecological examination (V72.31) Active confirmed Diag Problem Screening for malignant neoplasm of cervix (047846660) Screening for malignant neoplasm of the cervix (V76.2) Active confirmed Diag Problem Screening for malignant neoplasm of colon (304913883) Special screening for malignant neoplasms, colon (V76.51) Active confirmed Major Plan Of Treatment Pending Test Test Name Order Date MAMMOGRAM, SCREENING 10/10/2015 Insurance Providers Payer Name Payer Address Payer Phone Subscriber Number Group Number Insured Name Patient Relationship to Insured Coverage Start Date Coverage End Date MEDICARE [address] [place], [place] [id number] [phone] [id number] YUE LINK Self - patient is the insured [facility] [address] [address] [place] [phone] [id number] YUE LINK Self - patient is the [...]
[2024-09-01 13:55] LABS: Influenza A PCR NEGATIVE (Negative); Influenza B PCR NEGATIVE (Negative); Resp Syncy Virus RNA Qual PCR NEGATIVE (Negative); SARS COV2 PCR INHOUSE NEGATIVE (Negative)
[2024-09-01 13:57] LABS: SLIDE REVIEW VERIFIED
[2024-09-01 14:11] VITALS: BP 140/58; PULSE 86; RESP 22; TEMP 36.7; O2SAT 92
[2024-09-01] MEDS: Albuterol Sulfate 90 MCG 8 GM INHALER 2 PUFF INHALE (14:43)
--- NOTE | 2024-09-01 14:50 | PC.NURSE ---
92% on RA with ambulation, no cough or sob provider aware provided with aerospace inhaler
[2024-09-01 14:51] VITALS: BP 140/58; PULSE 86; RESP 22; TEMP 36.7; O2SAT 92
== END 2024-09-01 14:51 | disposition home or self-care (01) ==
PROVIDERS: Physician Assistant; Emergency Provider Emergency Medicine Emergency Medical Services; PCP Internal Medicine
DX: J45.901 Unspecified asthma with (acute) exacerbation (principal); R06.02 Shortness of breath; R94.31 Abnormal electrocardiogram [ECG] [EKG]; I10 Essential (primary) hypertension; Z79.899 Other long term (current) drug therapy; Z87.891 Personal history of nicotine dependence; Z03.818 Encounter for observation for suspected exposure to other biological agents ruled out
CPT/HCPCS: 0241U; 36415; 71046; 80048; 85025; 93005; 94640; 99284

== ENCOUNTER → 2024-09-01 12:56 | Outpatient (BNV) | payer MEDICARE, SELFPAY | PROVIDERS: Emergency Provider Emergency Medicine Emergency Medical Services; PCP Internal Medicine; Visit Provider Internal Medicine Cardiovascular Disease | DX: I25.2 Old myocardial infarction (principal) | CPT/HCPCS: 93010 ==

== ENCOUNTER → 2024-09-01 12:56 | Outpatient (BNV) | payer MEDICARE, SELFPAY | PROVIDERS: PCP Internal Medicine; Visit Provider Radiology Diagnostic Radiology | DX: J44.9 Chronic obstructive pulmonary disease, unspecified (principal) | CPT/HCPCS: 71046 ==

== ENCOUNTER 2024-09-15 10:49 | Outpatient (AMB) | payer MEDICARE, SELFPAY ==
[2024-09-15 10:51] VITALS: BP 124/64; PULSE 67; RESP 20; TEMP 36.5; O2SAT 95; BMI 19.9
--- NOTE | 2024-09-15 10:51 | MHC.PC.OV ---
Vital Signs 09/15/24 10:51 Height 5 ft 4 in Weight 116 lb BMI 19.9 BP 124/64 Blood Pressure Location Lt brachial Position Sitting Respiration 20 Pulse 67 Pulse Source Pulse Oximeter Temp 97.7 F Temp Source Oral Pulse Oximetry (%) 95 Oxygen Delivery Method Room Air Intake [place] [facility] Intake Note: Pt is here today for ER follow up visit. Allergies cat dander [CATS] Allergy (Severe, Verified 09/15/24 10:55) DIFFICULTY BREATHING gluten Allergy (Severe, Uncoded 09/15/24 10:55) unk Medication List - Last Reconciled 09/15/24 by Betty Don MD albuterol sulfate 90 mcg/actuation (ProAir HFA) 1 inh inhalation QID PRN albuterol sulfate 90 mcg/actuation 2 puffs inhalation Q6H PRN amlodipine 2.5 mg PO DAILY atorvastatin 20 mg PO BEDTIME calcium carbonate-vitamin D3 600 mg-5 mcg (200 unit) 1 tab PO DAILY cholecalciferol (vitamin D3) 25 mcg PO DAILY fluticasone propion-salmeterol 100-50 mcg/dose (Advair Diskus) 1 inh inhalation BID inhalational spacing device (BreatheRite MDI Spacer) As directed melatonin 5 mg PO BEDTIME PRN multivitamin 1 tab PO QAM Tobacco use date assessed: 09/15/24 Dental Screening Dental Screen Date: 07/17/24 H[place] [facility] [place] HPI Details Patient presents for the follow-up of ER visit 2 weeks ago for cough and wheezing. Patient took 5 days of 40 mg of prednisone.She complains of persistent productive cough and wheezing shortness or breath. Patient denies fever chills pleurisy PND orthopnea. She has been using Advair twice a day and albuterol inhaler at least 3 times PFSH Medical History Vitamin D deficiency Non-rheumatic mitral regurgitation Hyperlipidemia Annual physical exam Prolapse of female pelvic organs HTN (hypertension) Osteoporosis Celiac sprue Asthma Surgical History Hx of cataract extraction H/O colonoscopy Family History Father CVD (cardiovascular disease) Mother Oral cancer Brother Myocardial infarction Social History Housing: Apartment Alcohol intake: current Alcohol intake frequency: holidays/special occasions only Patient Tobacco Use Status: Former Tobacco user e-Cigarette/Vaping Use: Never Used Advance Directives Date on File: 03/16/22 service: No 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al status: retired 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 Cognitive needs: No Hearing needs: No Vision needs: Yes Questionnaire Thrive Questionnaire Date Thrive assessed: 07/10/24 I am a: Patient What is your living situation today?: I have a steady place to live Within the past 12 months, did the food you bought not last and you didn't have the money to get more?: Never true Within the past 12 months, did you worry whether your food would run out before you got money to buy more?: Never true Do you have trouble paying for medicines?: No Do you have trouble getting transportation to medical appointments?: No Do you have trouble paying your heating and electricity bill?: No Do you have trouble taking care of your child, family member or friend?: No Do you have trouble with day-to-day activities such as bathing, preparing meals, shopping, managing finances, etc.?: No Are you currently unemployed and looking for a job?: No Are you interested in more education?: No Please select the resources that you would like help with: None Currently or been in a relationship where the following occur: No concerns reported THRIVE Score: 0 NIKITA-7 AMB Questionnaire NIKITA-7 Date NIKITA - 7 assessed: 07/17/24 Source: Developed by Drs. Isreal Ibrahim, Tomeka Barber, Dominick Grullon and colleagues, with an educational courtney from [employer]. Review of Systems Const All systems reviewed & are unremarkable except as noted in HPI and below Eyes Reports no additional complaints Card Reports no additional complaints Resp Reports no additional complaints GI Reports no additional complaints Physical exam (Primary Care) Vital Signs: Last Vital Signs Temp 97.7 F 09/15/24 10:51 Pulse 67 09/15/24 10:51 Resp 20 09/15/24 10:51 BP 124/64 09/15/24 10:51 Pulse Ox 95 09/15/24 10:51 Oxygen Delivery Method Room Air 09/15/24 10:51 BMI result Body Mass Index 19.9 Tobacco/Smoking Status: Tobacco use Status Tobacco use date assessed 09/15/24 09/15/24 10:58 Patient Tobacco Use Status Former Tobacco user 09/15/24 10:58 e-Cigarette/Vaping Use Never Used 09/15/24 10:58 Thrive Assessment: Date of Thrive Assessment Date Thrive assessed 07/10/24 09/15/24 10:58 Currently or been in a relationship where the following occur: No concerns reported Const General: no acute distress HENMT Head: Yes normal to inspection Neck Neck: Yes supple Resp Effort & Inspection: able to speak in complete sentences Auscultation: rhonchi, wheezes and diminished lung sounds Cardio Rhythm: regular rhythm Heart sounds: S1 normal heart sound present and S2 normal heart sound present Coding Level of Care Code Est Pt Level 3 (14745) Diagnoses Lower respiratory infection (e.g., bronchitis, pneumonia, pneumonitis, pulmonitis) J22 Assessment & Plan Assessment & Plan (1) Lower respiratory infection (e.g., bronchitis, pneumonia, pneumonitis, pulmonitis): Code(s): J22 - Unspecified acute lower respiratory infection Category: Medical Plan: Z-Tanvir and prednisone taper are prescribed. patient was advised to continue Advair albuterol inhaler and add Robitussin, follow-up in 1 week Medications: New azithromycin For 250 mg dose pack: take 500 mg today (day 1), then 250 mg for 4 days (days 2-5) PO 6 tabs 0RF prednisone 4 tablets p.o. q.d. for 3 days then 3 tablets p.o. q.d. for 3 days then 2 tablets p.o. q.d. for 3 days then 1 tablet p.o. q.d. for 3 days orally daily; 30 tabs 0RF
--- OUTSIDE RECORDS SUMMARY | 2024-09-15 11:39 | XMS_ITS | Patient Health Record ---
Author Organization [employer] [facility] Address [address] [place] [address] Care Team Providers Care Motor Vehicle Field Representative Name Role Phone DEMETRICE GAN D.O. Primary Care Provider Ritika Brown Unavailable [phone] Reason For Referral No Information Medications Medication [...] W/U Status Risk Notes Problem Menopausal symptom (34763316) Symptomatic menopausal or female climacteric states (627.2) Active confirmed Major Problem Osteoporosis (53478507) Unspecified osteoporosis (733.00) Active confirmed Diag Problem Gynecological examination normal (497798989927214) Routine gynecological examination (V72.31) Active confirmed Diag Problem Screening for malignant neoplasm of cervix (711476399) Screening for malignant neoplasm of the cervix (V76.2) Active confirmed Diag Problem Screening for malignant neoplasm of colon (349112840) Special screening for malignant neoplasms, colon (V76.51) Active confirmed Major Plan Of Treatment Pending Test Test Name Order Date MAMMOGRAM, SCREENING 10/10/2015 Insurance Providers Payer Name Payer Address Payer Phone Subscriber Number Group Number Insured Name Patient Relationship to Insured Coverage Start Date Coverage End Date MEDICARE [address] [place], [place] [phone] [id number] YUE LINK Self - patient is the insured [facility] [address] [address] [place] [phone] [id number] YUE LINK Self - patient is the [...]
== END 2024-09-15 11:31 | disposition home or self-care (01) ==
LOC: HO.HMCC 10:50
PROVIDERS: PCP Internal Medicine; Visit Provider Internal Medicine
DX: J22 Unspecified acute lower respiratory infection (principal)

== ENCOUNTER → 2024-09-15 10:49 | Outpatient (BNVA) | payer MEDICARE, SELFPAY | PROVIDERS: PCP Internal Medicine; Visit Provider Internal Medicine | DX: J22 Unspecified acute lower respiratory infection (principal) | CPT/HCPCS: 99212 ==

== ENCOUNTER → 2024-09-21 12:50 | Outpatient (REF) | payer MEDICARE, SELFPAY ==
--- NOTE | 2024-09-21 12:53 | CA_ITS ---
Transthoracic Echocardiogram Patient (Last, First, Middle): Kailey Neil M Gender: Female Date of : 1940 Age: 84 Procedure Date: 09/21/2024 Procedure Type: Transthoracic Echocardiogram Location: OP Height: 162.56 cm Weight: 52.62 kg BSA: 1.55 m2 Heart Rate: bpm BP: 124 / 64 mmHg Pediatric Immunologist: CAPO Referring MD: Cesario Galeana MD Symptoms: I34.0 - Nonrheumatic mitral (valve) insufficiency Study Quality: Fair Conclusions: - The left ventricular systolic function is normal. The calculated ejection fraction is 60% by biplane method. - There is moderate mitral valve regurgitation. Findings Left Ventricle Normal left ventricular cavity size. The left ventricular systolic function is normal. The calculated ejection fraction is 60% by biplane method. There is no evidence of regional wall motion abnormalities. Diastolic function is indeterminate on the basis of available data. Right Ventricle Normal right ventricular cavity size and systolic function. Atria The left atrium is moderately dilated. The right atrium is normal in size. Aortic Valve There is mild calcification of the aortic valve. There is no aortic valve stenosis. Trace to mild aortic regurgitation. Mitral Valve There is moderate mitral annular calcification. There is mild posterior mitral leaflet prolapse. There is moderate mitral valve regurgitation. The mitral regurgitation jet is directed anteriorly. Pulmonic Valve The pulmonic valve is likely normal. Tricuspid Valve There is mild tricuspid valve regurgitation. There is no evidence of pulmonary hypertension. Great Vessels The asc aorta is normal in size. Small plaque is seen in the sino tubular ridge. Venous The inferior vena cava is normal in size and collapses greater than 50% with inspiration. Pericardium/Pleural There is no evidence of pericardial effusion. Prior Study Comparison No significant change compared to prior study dated: 03/22/2023. Measurements 2D Linear Measurements IVSd: 0.94 0.6-0.9/0.6-1.0 cm LVIDd: 5.11 3.9-5.3/4.2-5.9 cm LVIDd Index: 3.30 2.4-3.2/2.2-3.1 cm/m2 LVIDs: 3.03 2.0-3.6 cm LVPWd: 0.70 0.7-1.1 cm LA Diam: 3.80 2.7-3.8/3.0-4.0 cm LAIDs Index: 2.45 1.5-2.3 cm/m2 LV Mass: 181.22 67-162/88-224 g LV Mass Index: 116.92 43-95/49-115 g/m2 LVOT Diam: 2.00 3.0+(-)1.3 cm 2D Systolic Function EF 4C: 58.10 >55% EF 2C: 62.40 >55% EF BiP: 59.70 >55% Mitral Valve MV Pk E: 1.27 MV PK A: 1.03 MV Decel Time: 312.00 E/A: 1.20 E'Lateral: 7.18 E'Medial: 5.55 E/E' Med: 22.90 E/E' Lat: 17.70 PHT: 91.00 MVA PHT: 2.42 Decel Canadian: 4.09 Aortic Valve AoV Pk Celestine: 2.18 AoV Mn Celestine: 1.40 AoV VTI: 0.45 AoV Pk Grad: 19.00 Aov Mn Grad: 9.00 DONNA Cont.VTI: 1.61 AI Pk Celestine: 4.09 AI Canadian: 2.68 LVOT LVOT Pk Celestine: 1.18 LVOT Mn Celestine: 0.68 LVOT VTI: 0.23 LVOT Pk Grad: 6.00 LVOT Mn Grad: 2.00 LVOT Diam: 2.00 LVOT Area: 3.14 Diastolic Function MV Pk E: 1.27 MV Pk A: 1.03 E/A: 1.20 E'Medial: 5.55 E/E' Med: 22.90 E' Laterial: 7.18 E/E' Lat: 17.70 Right Ventricle TAPSE (mm): 23.30 TVS' Celestine: 12.20 Tricuspid Valve TR Pk Celestine: 2.32 TR Pk Grad: 22.00 RA Press: 3.00 RVSP: 25.00 Great Vessels Aorta Sinus of Valsalva: 3.07 2.0-3.[address] Ridge: 2.13 1.7-3.4 cm Ao Asc: 2.90 2.1-3.4 cm Updated in Other Vendor System with Status of Final Cesario Galeana MD electronically signed on 09/23/2024 12:17:34 PM with status of Final
--- OUTSIDE RECORDS SUMMARY | 2024-09-21 14:57 | XMS_ITS | Patient Health Record ---
Author Organization [employer] [facility] Address [address] [place] [address] Care Team Providers Care Picking Tech Name Role Phone DEMETRICE GAN D.O. Primary Care Provider Ritika Brown Unavailable [phone] Reason For Referral No Information Medications Medication [...] W/U Status Risk Notes Problem Menopausal symptom (78483208) Symptomatic menopausal or female climacteric states (627.2) Active confirmed Major Problem Osteoporosis (88953149) Unspecified osteoporosis (733.00) Active confirmed Diag Problem Gynecological examination normal (736149229770593) Routine gynecological examination (V72.31) Active confirmed Diag Problem Screening for malignant neoplasm of cervix (172919144) Screening for malignant neoplasm of the cervix (V76.2) Active confirmed Diag Problem Screening for malignant neoplasm of colon (719016276) Special screening for malignant neoplasms, colon (V76.51) Active confirmed Major Plan Of Treatment Pending Test Test Name Order Date MAMMOGRAM, SCREENING 10/10/2015 Insurance Providers Payer Name Payer Address Payer Phone Subscriber Number Group Number Insured Name Patient Relationship to Insured Coverage Start Date Coverage End Date MEDICARE [address] [place], [place] [phone] [id number] YUE LINK Self - patient is the insured [facility] [address] [address] [place] [phone] [id number] YUE LINK Self - patient is the [...]
== END ==
LOC: HO.CARD 12:50
PROVIDERS: PCP Internal Medicine; Visit Provider Internal Medicine
DX: I34.0 Nonrheumatic mitral (valve) insufficiency (principal)
CPT/HCPCS: 93306

== ENCOUNTER → 2024-09-21 12:53 | Outpatient (BNV) | payer MEDICARE, SELFPAY | PROVIDERS: PCP Internal Medicine; Visit Provider Internal Medicine | DX: I70.0 Atherosclerosis of aorta (principal); I35.1 Nonrheumatic aortic (valve) insufficiency | CPT/HCPCS: 93306 ==

== ENCOUNTER 2024-09-22 13:30 | Outpatient (AMB) | payer MEDICARE, SELFPAY ==
--- OUTSIDE RECORDS SUMMARY | 2024-09-22 13:34 | XMS_ITS | Patient Health Record ---
Author Organization [employer] [facility] Address [address] [place] [address] Care Team Providers Care Metal Hanger Name Role Phone DEMETRICE GAN D.O. Primary Care Provider Ritika Brown Unavailable [phone] Reason For Referral No Information Medications Medication [...] W/U Status Risk Notes Problem Menopausal symptom (59419049) Symptomatic menopausal or female climacteric states (627.2) Active confirmed Major Problem Osteoporosis (65172813) Unspecified osteoporosis (733.00) Active confirmed Diag Problem Gynecological examination normal (100886131687758) Routine gynecological examination (V72.31) Active confirmed Diag Problem Screening for malignant neoplasm of cervix (492437766) Screening for malignant neoplasm of the cervix (V76.2) Active confirmed Diag Problem Screening for malignant neoplasm of colon (966446455) Special screening for malignant neoplasms, colon (V76.51) Active confirmed Major Plan Of Treatment Pending Test Test Name Order Date MAMMOGRAM, SCREENING 10/10/2015 Insurance Providers Payer Name Payer Address Payer Phone Subscriber Number Group Number Insured Name Patient Relationship to Insured Coverage Start Date Coverage End Date MEDICARE [address] [place], [place] [phone] [id number] YUE LINK Self - patient is the insured [facility] [address] [address] [place] [id number] YUE LINK Self - patient is the [...]
[2024-09-22 13:41] VITALS: BP 126/66; PULSE 67; RESP 18; TEMP 36.7; O2SAT 95; BMI 20.3
--- NOTE | 2024-09-22 13:41 | A.OFFPC_ITS ---
Vital Signs 09/22/24 13:41 Height 5 ft 4 in Weight 118 lb BMI 20.3 BP 126/66 Blood Pressure Location Lt brachial Position Sitting Respiration 18 Pulse 67 Pulse Source Pulse Oximeter Temp 98.0 F Temp Source Oral Pulse Oximetry (%) 95 Oxygen Delivery Method Room Air Intake Visit Reasons: 1 week follow up Intake Note: Pt is here today for 1 week follow up visit. Allergies cat dander [CATS] Allergy (Severe, Verified 09/22/24 14:11) DIFFICULTY BREATHING gluten Allergy (Severe, Uncoded 09/22/24 14:11) unk Medication List - Last Reconciled 09/22/24 by Betty Don MD albuterol sulfate 90 mcg/actuation (ProAir HFA) 1 inh inhalation QID PRN albuterol sulfate 90 mcg/actuation 2 puffs inhalation Q6H PRN amlodipine 2.5 mg PO DAILY atorvastatin 20 mg PO BEDTIME calcium carbonate-vitamin D3 600 mg-5 mcg (200 unit) 1 tab PO DAILY cholecalciferol (vitamin D3) 25 mcg PO DAILY fluticasone propion-salmeterol 100-50 mcg/dose (Advair Diskus) 1 inh inhalation BID inhalational spacing device (BreatheRite MDI Spacer) As directed melatonin 5 mg PO BEDTIME PRN multivitamin 1 tab PO QAM prednisone 4 tablets p.o. q.d. for 3 days then 3 tablets p.o. q.d. for 3 days then 2 tablets p.o. q.d. for 3 days then 1 tablet p.o. q.d. for 3 days orally daily; Tobacco use date assessed: 09/22/24 Fall risk assessment: No Falls in past year Last assessed Fall Risk: 09/22/24 Dental Screening Dental Screen Date: 07/17/24 HPI 1 week follow up HPI Details Patient presents for the follow-up of COPD exacerbation she completed a course of Z-Tanvir and still taking prednisone. She is feeling significantly better. Patient has been using albuterol up to twice a day and Advair twice a day. [facility] Medical History (Updated 09/22/24 @ 15:31 by Betty Don MD) Lung nodules Breast lump on right side at 5 o'clock position COPD (chronic obstructive pulmonary disease) Vitamin D deficiency Non-rheumatic mitral regurgitation Hyperlipidemia Annual physical exam Prolapse of female pelvic organs HTN (hypertension) Osteoporosis Celiac sprue Asthma Surgical History Hx of cataract extraction H/O colonoscopy Family History Father CVD (cardiovascular disease) Mother Oral cancer Brother Myocardial infarction Social History Housing: Apartment Alcohol intake: current Alcohol intake frequency: holidays/special occasions only Patient Tobacco Use Status: Former Tobacco user e-Cigarette/Vaping Use: Never Used Advance Directives Date on File: 03/16/22 service: No 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al status: retired 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 Cognitive needs: No Hearing needs: No Vision needs: Yes Questionnaire Thrive Questionnaire Date Thrive assessed: 07/10/24 I am a: Patient What is your living situation today?: I have a steady place to live Within the past 12 months, did the food you bought not last and you didn't have the money to get more?: Never true Within the past 12 months, did you worry whether your food would run out before you got money to buy more?: Never true Do you have trouble paying for medicines?: No Do you have trouble getting transportation to medical appointments?: No Do you have trouble paying your heating and electricity bill?: No Do you have trouble taking care of your child, family member or friend?: No Do you have trouble with day-to-day activities such as bathing, preparing meals, shopping, managing finances, etc.?: No Are you currently unemployed and looking for a job?: No Are you interested in more education?: No Please select the resources that you would like help with: None Currently or been in a relationship where the following occur: No concerns reported THRIVE Score: 0 NIKITA-7 AMB Questionnaire NIKITA-7 Date NIKITA - 7 assessed: 07/17/24 Source: Developed by Drs. Isreal Ibrahim, Tomeka Barber, Dominick Grullon and colleagues, with an educational courtney from [employer] Review of Systems Const All systems reviewed & are unremarkable except as noted in HPI and below Eyes Reports no additional complaints ENT Reports no additional complaints Card Reports no additional complaints Resp Reports no additional complaints GI Reports no additional complaints Reports no additional complaints Physical exam (Primary Care) Vital Signs: Last Vital Signs Temp 98.0 F 09/22/24 13:41 Pulse 67 09/22/24 13:41 Resp 18 09/22/24 13:41 BP 126/66 09/22/24 13:41 Pulse Ox 95 09/22/24 13:41 Oxygen Delivery Method Room Air 09/22/24 13:41 BMI result Body Mass Index 20.3 Tobacco/Smoking Status: Tobacco use Status Tobacco use date assessed 09/22/24 09/22/24 14:12 Patient Tobacco Use Status Former Tobacco user 09/22/24 13:41 e-Cigarette/Vaping Use Never Used 09/22/24 13:41 Thrive Assessment: Date of Thrive Assessment Date Thrive assessed 07/10/24 09/22/24 13:41 Currently or been in a relationship where the following occur: No concerns reported Const General: no acute distress HENMT Head: Yes normal to inspection Eyes General: appearance normal, both eyes and all related structures Neck Neck: Yes supple Resp Effort & Inspection: normal respiratory effort Auscultation: crackles bilateral and diminished lung sounds Cardio Rhythm: regular rhythm Heart sounds: S1 normal heart sound present and S2 normal heart sound present Coding Level of Care Code Est Pt Level 4 (05003) Diagnoses Breast lump on right side at 5 o'clock position N63.14 COPD (chronic obstructive pulmonary disease) J44.9 HTN (hypertension) I10 Assessment & Plan Assessment & Plan (1) Breast lump on right side at 5 o'clock position: Comment: on chest CT, patient to have mammogram at [facility] Code(s): N63.14 - Unspecified lump in the right breast, lower inner quadrant Category: Medical Plan: Patient is waiting for an appointment for mammogram with [facility] (2) COPD (chronic obstructive pulmonary disease): Comment: on CXR, exposure to manufacturing dust at [employer]. Obtain PFTs continue Advair Code(s): J44.9 - Chronic obstructive pulmonary disease, unspecified Category: Medical Plan: Continue Advair and albuterol as needed obtain PFTs (3) HTN (hypertension): Code(s): I10 - Essential (primary) hypertension Category: Medical Plan: Continue amlodipine Orders: Orders PFT pulmonary function test Today J44.9 - Chronic obstructive pulmonary disease, unspecified
== END 2024-09-22 15:32 | disposition home or self-care (01) ==
LOC: HO.HMCC 13:31
PROVIDERS: PCP Internal Medicine; Visit Provider Internal Medicine
DX: N63.14 Unspecified lump in the right breast, lower inner quadrant (principal); J44.9 Chronic obstructive pulmonary disease, unspecified; I10 Essential (primary) hypertension

== ENCOUNTER → 2024-09-22 13:30 | Outpatient (BNVA) | payer MEDICARE, SELFPAY | PROVIDERS: PCP Internal Medicine; Visit Provider Internal Medicine | DX: N63.14 Unspecified lump in the right breast, lower inner quadrant (principal); J44.9 Chronic obstructive pulmonary disease, unspecified | CPT/HCPCS: 99212 ==

== ENCOUNTER 2024-09-28 13:34 | Outpatient (AMB) | payer MEDICARE, SELFPAY ==
--- NOTE | 2024-09-28 13:38 | MHC.OFFVIS ---
Vital Signs 09/28/24 13:39 Height 5 ft 4 in Weight 117 lb 4.575 oz BMI 20.1 BP 122/62 Blood Pressure Location Lt brachial Position Sitting Pulse 67 Pulse Source Monitor Intake Visit Reasons: 1 yr s/p echo Firesetter Required: No Accompanied by: Self / Same As Patient Allergies cat dander [CATS] Allergy (Severe, Verified 09/22/24 14:11) DIFFICULTY BREATHING gluten Allergy (Severe, Uncoded 09/22/24 14:11) unk Medication List - Last Reconciled 09/28/24 by Cesario Galeana MD albuterol sulfate 90 mcg/actuation (ProAir HFA) 1 inh inhalation QID PRN albuterol sulfate 90 mcg/actuation 2 puffs inhalation Q6H PRN amlodipine 2.5 mg PO DAILY atorvastatin 20 mg PO BEDTIME calcium carbonate-vitamin D3 600 mg-5 mcg (200 unit) 1 tab PO DAILY cholecalciferol (vitamin D3) 25 mcg PO DAILY fluticasone propion-salmeterol 100-50 mcg/dose (Advair Diskus) 1 inh inhalation BID inhalational spacing device (BreatheRite MDI Spacer) As directed melatonin 5 mg PO BEDTIME PRN multivitamin 1 tab PO QAM HPI Comments Details: Kailey returns for follow-up regarding mitral regurgitation. She states that she is quite active with absolutely no limitations. She is doing golf regularly and she can walk on the golf course and does not use the cart. She also plays pickleball without any issues. Recently came to the ER with cough and shortness of breath with wheezing. In that context, thought to have asthma exacerbation then given inhalers. Also took steroids. After that, it seems she is back to normal self. Otherwise, no other specific cardiac sounding symptoms. [facility] Medical History Lung nodules Breast lump on right side at 5 o'clock position COPD (chronic obstructive pulmonary disease) Vitamin D deficiency Non-rheumatic mitral regurgitation Hyperlipidemia Annual physical exam Prolapse of female pelvic organs HTN (hypertension) Osteoporosis Celiac sprue Asthma Surgical History Hx of cataract extraction H/O colonoscopy Family History Father CVD (cardiovascular disease) Mother Oral cancer Brother Myocardial infarction Social History Housing: Apartment Alcohol intake: current Alcohol intake frequency: holidays/special occasions only Patient Tobacco Use Status: Former Tobacco user e-Cigarette/Vaping Use: Never Used Advance Directives Date on File: 03/16/22 service: No 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al status: retired 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 Cognitive needs: No Hearing needs: No Vision needs: Yes Review of Systems Const Denies chills, Denies fatigue, Denies fever(s), Denies frequent falls, Denies weakness, Denies weight gain and Denies weight loss ENT Denies dizziness Card Denies chest pain, Denies leg edema, Denies lightheadedness, Denies palpitations, Denies dyspnea and Denies dyspnea on exertion Resp Denies cough, Denies dyspnea and Denies dyspnea on exertion GI Denies hematochezia Musc Denies abnormal gait, Denies muscle weakness, Denies numbness, Denies radiating pain into limb and Denies tingling Neuro Denies abnormal gait, Denies dizziness, Denies frequent falls, Denies numbness, Denies tingling and Denies weakness Endo Denies fatigue and Denies palpitations Physical Exam Vital Signs: Last Vital Signs Pulse 67 09/28/24 13:39 BP 122/62 09/28/24 13:39 BMI result Body Mass Index 20.1 Const General: comfortable and no acute distress Orientation/consciousness: patient oriented x3 HEENT Other: Unremarkable Head: Yes normal to inspection Neck Neck: Yes normal visual inspection Chest Chest palpation & inspection: normal inspection of the chest Resp Auscultation: clear to auscultation bilaterally Cardio Palpation: normal PMI Heart sounds: S1 normal heart sound present, S2 normal heart sound present, no gallops, Murmur heart sound present systolic II/ and at the apex and no rubs GI Palpation (GI): Soft to palpation Back/Spine/Pelvis Other: unremarkable Skin General skin exam: no rashes or lesions noted Neuro General: patient oriented x3 Extrem General: Yes normal to inspection Psych Mental Status: mental status grossly normal Office Procedures EKG Details: EKG with underlying sinus rhythm at 67/Min; left ventricular hypertrophy with repolarization type changes; normal ND and corrected QT. This has been seen before but slightly more prominent. [id number], Complete Assessment & Plan Assessment & Plan (1) Non-rheumatic mitral regurgitation: Code(s): I34.0 - Nonrheumatic mitral (valve) insufficiency Category: Medical Plan: Transesophageal echocardiogram 08/2020 with mitral valve prolapse likely involving P2/P3 with moderate mitral regurgitation. In the most recent echocardiogram from this month, LVEF is preserved at 60%. Moderate mitral annular calcification with mild posterior leaflet prolapse. There was moderate mitral regurgitation, directed anteriorly. Clinically, she has got absolutely no restrictions in activity and she is playing several sports with no issues. We will continue to follow clinically and by echocardiograms. She agrees. If any interim symptoms, she will contact us immediately. (2) Coronary artery calcification seen on CT scan: Code(s): I25.10 - Atherosclerotic heart disease of [place] coronary artery without angina pectoris Category: Medical Plan: Recent chest CT scan reports severe coronary artery calcification. It is not necessarily uncommon at her age but as the EKGs have also been chronically abnormal, we will check an exercise stress myocardial perfusion imaging study. She agrees. However, she clinically does not have any angina. (3) Essential hypertension: Code(s): I10 - Essential (primary) hypertension Category: Medical Plan: On amlodipine. Stable. Plan Discussion Notes I discussed with the patient the presence of mitral valve regurgitation, which we will continue to monitor. We explored treatment and monitoring options, including surgical intervention if necessary depending on symptom advancement. I have proposed a stress test to assess her cardiac status further. We discussed the diagnostic findings suggestive of COPD/emphysema. The patient expressed understanding and consented to the proposed plan. For her other conditions, we reviewed the current medication regimen. Follow-up was agreed for six-month intervals to ensure close monitoring of her pulmonary status. Patient was informed and verbally consented to the use of an ambient scribe for clinic note documentation during this visit. Total time spent including review of data, counseling, documentation, coordination of care-31 minutes. Orders: Orders CA stress test Today I25.10 - Atherosclerotic heart disease of [place] coronary artery without angina pectoris, R07.2 - Precordial pain NM cardiolite stress test Today I25.10 - Atherosclerotic heart disease of [place] coronary artery without angina pectoris, R07.2 - Precordial pain Patient Instructions: - Continue managing blood pressure with Amlodipine and cholesterol with Atorvastatin. - Use inhalers as prescribed for asthma management. - Expect a call for scheduling the stress test. - Follow-up in six months or sooner if breathing difficulties worsen. - Report any increased shortness of breath, chest pain, or other concerns immediately. - Remain active with current exercise routine as tolerated. Coding Level of Care Code Est Pt Level 4 (98385) Complex EM visit Add On G2211 Diagnoses Non-rheumatic mitral regurgitation I34.0 Coronary artery calcification seen on CT scan I25.10 Essential hypertension I10 CPT Codes EKG - CPT: 13394-[id number], Complete ([id number])
[2024-09-28 13:39] VITALS: BP 122/62; PULSE 67; BMI 20.1
--- OUTSIDE RECORDS SUMMARY | 2024-09-28 15:53 | XMS_ITS | Patient Health Record ---
Author Organization [employer] [facility] Address [address] [place] [address] Care Team Providers Care Hockey Scout Name Role Phone DEMETRICE GAN D.O. Primary Care Provider Ritika Brown Unavailable [phone] Reason For Referral No Information Medications Medication [...] W/U Status Risk Notes Problem Menopausal symptom (53577083) Symptomatic menopausal or female climacteric states (627.2) Active confirmed Major Problem Osteoporosis (22797874) Unspecified osteoporosis (733.00) Active confirmed Diag Problem Gynecological examination normal (131852477840794) Routine gynecological examination (V72.31) Active confirmed Diag Problem Screening for malignant neoplasm of cervix (923327808) Screening for malignant neoplasm of the cervix (V76.2) Active confirmed Diag Problem Screening for malignant neoplasm of colon (614808414) Special screening for malignant neoplasms, colon (V76.51) Active confirmed Major Plan Of Treatment Pending Test Test Name Order Date MAMMOGRAM, SCREENING 10/10/2015 Insurance Providers Payer Name Payer Address Payer Phone Subscriber Number Group Number Insured Name Patient Relationship to Insured Coverage Start Date Coverage End Date MEDICARE [address] [place], [place] [id number] [phone] [id number] YUE LINK Self - patient is the insured [facility] [address] [address] [place] [id number] YUE LINK Self - patient is the [...]
== END 2024-09-28 13:56 | disposition home or self-care (01) ==
LOC: HO.HCS 13:35
PROVIDERS: PCP Internal Medicine; Visit Provider Internal Medicine
DX: I34.0 Nonrheumatic mitral (valve) insufficiency (principal); I25.10 Atherosclerotic heart disease of native coronary artery without angina pectoris; I10 Essential (primary) hypertension
CPT/HCPCS: 93010; 99214; G2211

== ENCOUNTER → 2024-09-28 13:34 | Outpatient (BNVA) | payer MEDICARE, SELFPAY | PROVIDERS: PCP Internal Medicine; Visit Provider Internal Medicine | DX: I34.0 Nonrheumatic mitral (valve) insufficiency (principal); I25.10 Atherosclerotic heart disease of native coronary artery without angina pectoris; I10 Essential (primary) hypertension; I51.7 Cardiomegaly; R94.31 Abnormal electrocardiogram [ECG] [EKG] | CPT/HCPCS: 93005; 99212 ==

== ENCOUNTER 2024-10-30 10:40 | Outpatient (REF) | payer MEDICARE, SELFPAY ==
--- NOTE | ~2024-10-30 | MM_ITS ---
EXAMINATION: MM DIAGNOSTIC DIGITAL BREAST TOMOSYNTHESIS, BILATERAL CLINICAL INFORMATION: Right upper outer quadrant asymmetric tissue density seen on prior CT chest August 21, 2024. Patient states right breast lower inner quadrant pain. COMPARISON: Mammography: Comparison is made with relevant prior exams. TECHNIQUE: Digital breast mammography with tomosynthesis is performed in both the craniocaudal and mediolateral oblique views along with computer-aided detection (CAD). FINDINGS: There are scattered areas of fibroglandular density (ACR BI-RADS breast composition Category b). Left: There are no significant masses, abnormal calcifications, or other abnormalities. Right: Focal asymmetry in the upper outer right breast posterior depth stable on prior mammograms dating back to 2019 and appears is a patch of dense normal fibroglandular breast tissue. No suspicious calcifications or other abnormal findings. Targeted color Doppler ultrasound in the upper outer right breast lower inner quadrant upper outer quadrant demonstrates normal fibronodular breast tissue. There is no sonographic abnormal findings to account for the patient's lower inner quadrant right breast pain and upper outer quadrant dense patch of normal fibronodular breast tissue. Results are provided to the patient at time of visit by the technologist. MM/MM tomosynthesis diagnostic BI IMPRESSION: Left: Negative. Right: 1. Focal asymmetry in the upper outer right breast correlating with chest CT finding is a patch of asymmetric normal fibronodular breast tissue and stable on prior mammograms dating back to 2019 and therefore benign. On ultrasound this area demonstrated to be a dense patch of normal fibronodular breast tissue. There is no sonographic or mammographic abnormal findings in the upper outer quadrant of the right breast. 2. Right breast pain lower inner quadrant without mammographic or sonographic abnormal finding. Recommend clinical evaluation and follow-up.. ASSESSMENT: BI-RADS BI-RADS 2 - Benign Findings RECOMMENDATION: 1 year F/U This patient's information was entered into a reminder system with a target due date for their next mammogram. Electronically signed by: Marielle Ndiaye DO 10/30/2024 12:04 PM EDT
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
== END 2024-10-30 10:41 | disposition home or self-care (01) ==
LOC: HO.MAMMO 10:40
PROVIDERS: PCP Internal Medicine; Visit Provider Internal Medicine
DX: N63.14 Unspecified lump in the right breast, lower inner quadrant (principal)
CPT/HCPCS: 76642; 77062; 77066

== ENCOUNTER → 2024-10-30 11:30 | Outpatient (BNV) | payer MEDICARE, SELFPAY | PROVIDERS: PCP Internal Medicine; Visit Provider Internal Medicine | DX: N64.89 Other specified disorders of breast (principal); N64.4 Mastodynia | CPT/HCPCS: 76642; 77066; G0279 ==

== ENCOUNTER 2024-11-21 10:01 | Outpatient (AMB) | payer MEDICARE, SELFPAY ==
--- NOTE | 2024-11-21 10:12 | A.OFFVIS_ITS ---
Vital Signs 11/21/24 10:13 Height 5 ft 4 in Weight 120 lb 4 oz BMI 20.6 BP 128/50 L Blood Pressure Location Rt brachial Position Sitting Pulse 57 Pulse Source Pulse Oximeter Pulse Oximetry (%) 97 Oxygen Delivery Method Room Air Intake Visit Reasons: Asthma Allergies cat dander (CATS) Allergy (Severe, Verified 11/21/24 10:15) DIFFICULTY BREATHING gluten Allergy (Severe, Uncoded 11/21/24 10:15) unk HPI HPI Asthma: Details: Kailey is a pleasant 84 year old female, former minimal smoker, quit 50 years, with underlying asthma/COPD, HTN, HLD, and CAD. She was referred by PCP for pulmonary evaluation after having bronchitis twice this past Spring. Patient reports resolution of symptoms with antibiotics and possible allergic contribution vs sick contact exposure as she volunteers at the [facility]. At this time, she reports good control of respiratory symptoms using Wixela 100-50 mcg QD, occasionally reports dyspnea on exertion however activity is not limited by respiratory symptoms. [place] well as golf with minimal symptoms. She reports allergies are mild, no use of antihistamines and not interested in allergy testing at this time. She denies h/o recurrent respiratory infections. She has an upcoming PFT scheduled next month. She is also being followed for pulmonary nodules, which were an incidental finding, last CT chest 08/2024 revealed stable 10x 8 mm pulmonary nodule of right lung apex as well as 6 mm FABIAN and 3 mm RLL, that have been reportedly stable since 2022. 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 She denies any pertinent family history. [facility] Medical History Lung nodules Breast lump on right side at 5 o'clock position COPD (chronic obstructive pulmonary disease) Vitamin D deficiency Non-rheumatic mitral regurgitation Hyperlipidemia Annual physical exam Prolapse of female pelvic organs HTN (hypertension) Osteoporosis Celiac sprue Asthma Surgical History Hx of cataract extraction H/O colonoscopy Family History Father CVD (cardiovascular disease) Mother Oral cancer Brother Myocardial infarction Social History (Reviewed 11/21/24 @ 10:15 by Connie Joyner [facility]) Housing: Apartment Alcohol intake: current Alcohol intake frequency: holidays/special occasions only Patient Tobacco Use Status: Former Tobacco user e-Cigarette/Vaping Use: Never Used Advance Directives Date on File: 03/16/22 service: No 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al status: retired 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 Cognitive needs: No Hearing needs: No Vision needs: Yes Review of Systems Const Denies chills, Denies excessive sweating, Denies fever(s), Denies headache(s) and Denies night sweats Eyes Denies dry eyes, Denies irritation and Denies itchy eyes ENT Reports Normal hearing present, Denies headache(s), Denies nasal congestion, Denies nasal discharge, Denies post nasal drip and Denies sore throat Card Denies chest pain, Denies chest pain at rest, Denies chest pain with activity, Denies claudication, Denies leg edema, Denies orthopnea and Denies paroxysmal nocturnal dyspnea Resp Denies chest congestion, Denies cough, Denies excessive phlegm production, Denies pain on inspiration, Denies pain with cough, Denies stridor and Denies wheezing Musc Denies myalgias Neuro Reports Normal hearing present and Denies headache(s) Endo Denies excessive sweating Jovi/Lymph Denies lymphadenopathy Aller/Immun Denies itchy eyes and Denies wheezing Physical Exam Vital Signs: Last Vital Signs Pulse 57 11/21/24 10:13 BP 128/50 L 11/21/24 10:13 Pulse Ox 97 11/21/24 10:13 Oxygen Delivery Method Room Air 11/21/24 10:13 BMI result Body Mass Index 20.6 Const General: cooperative, healthy appearing, comfortable, no acute distress, well developed and alert Orientation/consciousness: patient oriented x3 Limitations: no limitations HEENT Head: Yes normal to inspection, Yes normocephalic and Yes atraumatic Ears: hearing grossly normal bilaterally and external ears normal Eyes General: appearance normal, both eyes and all related structures Eyelids: Yes eyelids normal Sclerae: sclerae normal EOM: EOMs intact bilaterally Neck Neck: Yes normal visual inspection and Yes no lymphadenopathy Lymphatic: no lymphadenopathy noted Chest Chest palpation & inspection: normal inspection of the chest Resp Effort & Inspection: normal respiratory effort, able to speak in complete sentences, no audible wheezes, no cough, no stridor, not tachypneic, no tripod positioning and no use of accessory muscles Auscultation: clear to auscultation bilaterally Cardio Jugular venous distension: no JVD Rate: regular rate Rhythm: regular rhythm Skin Other: warm, dry General skin exam: no rashes or lesions noted Neuro General: patient oriented x3 Cranial nerves: Yes Normal hearing present Cognition (Neuro): normal cognition Gait exam (Neuro): Normal gait present Extrem General: Yes normal to inspection, Yes capillary refill normal, Yes no clubbing, cyanosis or edema and Yes no pedal edema Psych Appearance: grossly normal and well kempt Speech and movement: Normal speech and movement present and Clear speech present Affect: normal affect Attitude: cooperative Thought process: Normal thought process present Thought content: Normal thought content present Insight: Good insight present (Psych) Judgement: Good judgement present (Psych) Results Reviewed Results Reviewed: [address] [address] [address] Scan Report Signed Patient: Kailey Neil MR#: [id number] : 1940 Acct:[id number] Age/Sex: 84 / F ADM Date: 08/21/24 Loc: HO.CT Attending Dr: Betty Don MD Ordering Physician: Betty Don MD Date of Service: 08/21/24 Procedure(s): CT chest wo IV con Accession Number(s): [id number] cc: Betty Don MD~ Report Number: [id number]: Total DLP = 111.00 mGy-cm EXAMINATION: CT CHEST WITHOUT IV CONTRAST INDICATION: R91.8 - Other nonspecific abnormal finding of lung field COMPARISON: Comparison is made with the prior examination dated 12/16/2023. TECHNIQUE: Helical CT scan of the chest was performed without intravenous contrast. Coronal and sagittal reformatted images were generated and reviewed. This CT exam was performed with one or more of the following dose reduction techniques: automated exposure control, adjustment of the mA and/or kV according to patient size, use of iterative reconstruction technique. DLP: 111 mGy-cm CHEST: THYROID: The thyroid is unremarkable. LUNGS: Again seen is a 10 x 8 mm nodule at the right lung apex (series 4, image 20). This is similar in size to prior studies dating back to 03/02/2023. There is a 6 mm nodule in the left upper lobe (series 4, image 35 without significant change. A 3 mm nodule in the right lower lobe (series 4, image 70. There is an additional ovoid lingular nodule without change (series 4, image 94). Scarring right upper and middle lobes and in the lingula. MEDIASTINUM: There is no mediastinal lymphadenopathy. KERRIE: Evaluation of the hilar regions is limited by lack of intravenous contrast material. CARDIOVASCULATURE: The heart is normal in size. There is no pericardial effusion. The thoracic aorta demonstrates atherosclerotic calcification, but is normal in caliber. DEGREE OF CORONARY CALCIFICATION: severe PLEURA: There is no pleural effusion. No pneumothorax. MAIN AIRWAYS: The mainstem bronchi and proximal branches are patent. AXILLA: There is no axillary lymphadenopathy. BONES AND SOFT TISSUES: Again seen is asymmetric density in the outer right breast. There is degenerative disc disease of the spine. UPPER ABDOMEN: The visualized portions of the liver, spleen, and adrenals have an unremarkable unenhanced appearance. CT/CT chest wo IV con IMPRESSION: 1. Stable bilateral pulmonary nodules as described. Continued follow-up is recommended. 2. Asymmetric tissue in the outer right breast is again noted. Correlation with mammography and breast ultrasound is recommended if this has not recently been performed. Electronically signed by: Isreal Haddad MD 08/21/2024 08:35 AM EDT Dictated By: Isreal Haddad MD Signed By: <Electronically signed by Isreal Haddad MD in OV> 08/21/24 0835 DD/ 0730 TD/TT: 08/21/24 0808 Php Engineer: Assessment & Plan Assessment & Plan (1) Asthma: Code(s): J45.909 - Unspecified asthma, uncomplicated Category: Medical (2) Lung nodules: Code(s): R91.8 - Other nonspecific abnormal finding of lung field Category: Medical Plan At this time Kailey reports good control of respiratory symptoms on current regimen of Wixela, advised to continue. If symptoms change encouraged patient to increase to BID.She has upcoming appt for PFT scheduled next month, will review at follow up. Prior chest CT 08/2024 revealed a 10 x 8 mm nodule at the right lung apex, which is similar in size to prior studies dating back to 03/02/2023, however appears more dense on 08/2024 CT. Will repeat in one year to assess stability. All questions were answered and patient is in agreement of plan. Will follow up to review results or sooner if needed. Orders: Orders CT chest wo IV con 9 Months R91.8 - Other nonspecific abnormal finding of lung field Coding Level of Care Code New Pt Level 4 (31798) Diagnoses Asthma J45.909 Lung nodules R91.8
[2024-11-21 10:13] VITALS: BP 128/50; PULSE 57; O2SAT 97; BMI 20.6
--- OUTSIDE RECORDS SUMMARY | 2024-11-21 10:35 | XMS_ITS | Patient Health Record ---
Author Organization [facility] Address [address] [place] [address] Care Team Providers Care Jewelry Manager Name Role Phone DEMETRICE GAN D.O. Primary Care Provider Ritika Brown Unavailable [phone] Reason For Referral No Information Medications Medication SIG (Take, Route, Frequency, Duration) Notes Start Date End Date Status Atorvastatin Calcium 20 MG 1 tablet Oral ly Once a day Active Advair Diskus 250-50 1 Inhalation TWICE DAILY; Duration: -3 Ankur-MJ 03/02/2011 Active Biotin 1 ORAL daily; Durati on: -3 Ankur-MJ 03/07/2012 Active Calcium-D 1 ORAL daily; Durati on: -3 Ankur-MJ 03/07/2012 Active Restasis Active Social [...] W/U Status Risk Notes Problem Menopausal symptom (11846400) Symptomatic menopausal or female climacteric states (627.2) Active confirmed Major Problem Osteoporosis (87272691) Unspecified osteoporosis (733.00) Active confirmed Diag Problem Gynecological examination normal (162290543629460) Routine gynecological examination (V72.31) Active confirmed Diag Problem Screening for malignant neoplasm of cervix (764161624) Screening for malignant neoplasm of the cervix (V76.2) Active confirmed Diag Problem Screening for malignant neoplasm of colon (741193263) Special screening for malignant neoplasms, colon (V76.51) Active confirmed Major Plan Of Treatment Pending Test Test Name Order Date MAMMOGRAM, SCREENING 10/10/2015 Insurance Providers Payer Name Payer Address Payer Phone Subscriber Number Group Number Insured Name Patient Relationship to Insured Coverage Start Date Coverage End Date MEDICARE [address] [place], [place] [id number] YUE LINK Self - patient is the insured [facility] [address] [address] [place] [address] [id number] YUE LINK Self - patient is the [...]
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
== END 2024-11-21 10:35 | disposition home or self-care (01) ==
LOC: HO.HPSW 10:02
PROVIDERS: PCP Internal Medicine; Visit Provider Nurse Practitioner Family
DX: J45.909 Unspecified asthma, uncomplicated (principal); R91.8 Other nonspecific abnormal finding of lung field
CPT/HCPCS: 99204

== ENCOUNTER → 2024-11-21 10:01 | Outpatient (BNVA) | payer MEDICARE, SELFPAY | PROVIDERS: PCP Internal Medicine; Visit Provider Nurse Practitioner Family | DX: J45.909 Unspecified asthma, uncomplicated (principal); R91.8 Other nonspecific abnormal finding of lung field | CPT/HCPCS: 99202 ==

== ENCOUNTER → 2024-11-23 09:43 | Outpatient (REF) | payer MEDICARE, SELFPAY ==
--- NOTE | ~2024-11-23 | NM_ITS ---
EXERCISE MYOCARDIAL PERFUSION STUDY INDICATION: Chest pain TECHNIQUE: The patient was brought in for an exercise perfusion study on 11/23/2024. Patient performed exercise as per Jonathan protocol and was injected 25 mCi of sestamibi once target heart rate was achieved. Images were obtained using the SPECT gamma camera interlaced with the gating device. Images were obtained in supine position. Resting perfusion study was performed on 11/24/2024. Patient was administered 25 mCi of sestamibi intravenously at rest. Images were then obtained in supine position. Total DLP 69 mGy-cm. Images were processed with the software and compared side to side in short axis, horizontal long axis and vertical long axis views. FINDINGS: Raw aquisition reviewed. The stress perfusion study showed no significant perfusion abnormality. Both uncorrected as well as CT attenuation corrected images were reviewed. The gated study shows normal LV systolic function with calculated LVEF of 65%. LV cavity is normal in size. The gated study shows normal wall thickening and contraction of segments. Resting study shows no significant perfusion abnormality. Gating at rest reveals normal wall motion with ejection fraction at 45%, but visually normal. The findings are consistent with no clear reversible or fixed perfusion defects. NM/NM cardiolite stress test IMPRESSION: 1. Myocardial perfusion imaging study shows normal myocardial perfusion. 2. Gated LVEF is 65% during stress. Visually normal during rest. 3. Transient ischemic dilatation not present. EKG component of the test reported separately. Electronically signed by: Cesario Galeana MD 11/24/2024 01:16 PM EDT
--- NOTE | 2024-11-23 09:46 | CA_ITS ---
Acquisition Time: 2024-11-23 10:26:44 Total Exercise Time: 00:06:35 Test Indications: CP Medications: AMLODIPINE ATROVASTATIN Protocol: MAIK Max HR: 137 BPM 100% of Pred: 137 BPM Max BP: 138/80 mmHG Max Work Load: 7.9 METS Exercise stress test with exercise 6 mins 35 secs of Maik Protocol, achieving 88% MPHR, with reports of mild sOB, no chest pain, with isolated PVCs and brief vent bigeminy, with normotensive response to exercise. With ST depression inferiorly and in leads V3- V6 and ST elevation in aVR and and aVL, meeting criteria for ischemia. In recovery, ST segment improving gradually. Breathing returned to basleine. Nuclear image pending. Test reviewed with Dr. Galeana. Referred By: Cesario Galeana Electronically Signed By: Naman Dorado
--- OUTSIDE RECORDS SUMMARY | 2024-11-23 10:11 | XMS_ITS | Patient Health Record ---
Author Organization [email or web address] [facility] Address [address] [place] [address] Care Team Providers Care Servicing Manager Name Role Phone DEMETRICE GAN D.O. Primary Care Provider Ritika Brown Unavailable [phone] Reason For Referral No Information Medications Medication [...] W/U Status Risk Notes Problem Menopausal symptom (55932949) Symptomatic menopausal or female climacteric states (627.2) Active confirmed Major Problem Osteoporosis (33535782) Unspecified osteoporosis (733.00) Active confirmed Diag Problem Gynecological examination normal (411055430335339) Routine gynecological examination (V72.31) Active confirmed Diag Problem Screening for malignant neoplasm of cervix (934630030) Screening for malignant neoplasm of the cervix (V76.2) Active confirmed Diag Problem Screening for malignant neoplasm of colon (297902263) Special screening for malignant neoplasms, colon (V76.51) Active confirmed Major Plan Of Treatment Pending Test Test Name Order Date MAMMOGRAM, SCREENING 10/10/2015 Insurance Providers Payer Name Payer Address Payer Phone Subscriber Number Group Number Insured Name Patient Relationship to Insured Coverage Start Date Coverage End Date MEDICARE [address] [place], [place] [id number] [phone] [id number] YUE LINK Self - patient is the insured [facility] [address] [address] [place] [address] [id number] YUE LINK Self - patient is the [...]
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
== END ==
LOC: HO.CARD 09:43
PROVIDERS: PCP Internal Medicine; Visit Provider Internal Medicine
DX: I25.10 Atherosclerotic heart disease of native coronary artery without angina pectoris (principal); R07.2 Precordial pain; Z79.899 Other long term (current) drug therapy
CPT/HCPCS: 78452; 93017; A9500

== ENCOUNTER → 2024-11-23 09:46 | Outpatient (BNV) | payer MEDICARE, SELFPAY | PROVIDERS: PCP Internal Medicine | DX: I49.3 Ventricular premature depolarization (principal) | CPT/HCPCS: 78452; 93016; 93018 ==

== ENCOUNTER 2024-12-19 07:53 | Outpatient (REF) | payer MEDICARE, SELFPAY ==
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
--- OUTSIDE RECORDS SUMMARY | 2024-12-19 07:55 | XMS_ITS | Patient Health Record ---
Author Organization [facility] [email or web address] [facility] Address [address] [place] [address] Care Team Providers Care Keg Header Name Role Phone DEMETRICE GAN D.O. Primary Care Provider Ritika Brown Unavailable [phone] Reason For Referral No Information Medications Medication [...] W/U Status Risk Notes Problem Menopausal symptom (61408957) Symptomatic menopausal or female climacteric states (627.2) Active confirmed Major Problem Osteoporosis (32456038) Unspecified osteoporosis (733.00) Active confirmed Diag Problem Gynecological examination normal (054789685393449) Routine gynecological examination (V72.31) Active confirmed Diag Problem Screening for malignant neoplasm of cervix (542496954) Screening for malignant neoplasm of the cervix (V76.2) Active confirmed Diag Problem Screening for malignant neoplasm of colon (127290193) Special screening for malignant neoplasms, colon (V76.51) Active confirmed Major Plan Of Treatment Pending Test Test Name Order Date MAMMOGRAM, SCREENING 10/10/2015 Insurance Providers Payer Name Payer Address Payer Phone Subscriber Number Group Number Insured Name Patient Relationship to Insured Coverage Start Date Coverage End Date MEDICARE [address] [place] [id number] [phone] [id number] YUE LINK Self - patient is the insured [facility] [address] [address] [place] [address] [id number] YUE LINK Self - patient is the [...]
--- NOTE | 2024-12-19 07:57 | PFT_ITS ---
Flows: FEV1: 73 % of predicted at 1.34 L FVC: 92 % of predicted at 2.24 L FEV1/FVC: 60 % Bronchodilator response: Present Volumes: Total lung capacity: 80 % of predicted at 3.87 L Residual volume: 80 % of predicted at 1.73 L Slow vital capacity: 83 % of predicted at 2.14 L Expiratory reserve volume: 63 % of predicted at 0.40 L Diffusion capacity: Moderately decreased, adjusts to being mildly decreased after correction for alveolar ventilation. Impression: Combined moderate obstructive and borderline restrictive ventilatory defects with positive bronchodilator response. Decreased diffusion capacity suggests emphysema. MTDD
[2024-12-19 08:40] VITALS: PULSE 58; O2SAT 98
== END 2024-12-19 07:54 | disposition home or self-care (01) ==
LOC: HO.RESP 07:53
PROVIDERS: PCP Internal Medicine; Visit Provider Internal Medicine
DX: J44.9 Chronic obstructive pulmonary disease, unspecified (principal)
CPT/HCPCS: 94010; 94640; 94727; 94729

== ENCOUNTER → 2024-12-19 07:57 | Outpatient (BNV) | payer MEDICARE, SELFPAY | PROVIDERS: PCP Internal Medicine; Visit Provider Internal Medicine Pulmonary Disease | DX: J44.9 Chronic obstructive pulmonary disease, unspecified (principal) | CPT/HCPCS: 94060; 94727; 94729 ==

== ENCOUNTER 2025-01-10 11:05 | Outpatient (AMB) | payer MEDICARE, SELFPAY ==
[2025-01-10 11:11] VITALS: BP 150/66; PULSE 59; O2SAT 96; BMI 20.9
--- NOTE | 2025-01-10 11:11 | A.OFFVIS_ITS ---
Vital Signs 01/10/25 11:11 Height 5 ft 4 in Weight 122 lb BMI 20.9 BP 150/66 H Blood Pressure Location Rt brachial Position Sitting Pulse 59 Pulse Source Pulse Oximeter Pulse Oximetry (%) 96 Oxygen Delivery Method Room Air Intake Visit Reasons: Asthma Allergies cat dander (CATS) Allergy (Severe, Verified 01/10/25 11:13) DIFFICULTY BREATHING gluten Allergy (Severe, Uncoded 01/10/25 11:13) unk HPI HPI Asthma: Details: Kailey is a pleasant 84 year old female, former minimal smoker, quit 50 years ago, with underlying asthma/COPD, HTN, HLD, and CAD. She was initially referred by PCP for pulmonary evaluation after having bronchitis twice this past Spring. 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 She continues to report good control of respiratory symptoms using Wixela 100-50 mcg QD, occasionally reports dyspnea on exertion however activity is not limited by respiratory symptoms. She denies cough, wheezing or chest tightness. She denies any symptoms suggestive of an infectious process. She is also being followed for pulmonary nodules, which were an incidental finding, last CT chest 08/2024 revealed stable 10x 8 mm pulmonary nodule of right lung apex as well as 6 mm FABIAN and 3 mm RLL, that have been reportedly stable since 2022. Today she presents to review PFT results. She denies any visits to urgent care hospitalizations related to respiratory distress since last visit. [facility] Medical History Lung nodules Breast lump on right side at 5 o'clock position COPD (chronic obstructive pulmonary disease) Vitamin D deficiency Non-rheumatic mitral regurgitation Hyperlipidemia Annual physical exam Prolapse of female pelvic organs HTN (hypertension) Osteoporosis Celiac sprue Asthma Surgical History Hx of cataract extraction H/O colonoscopy Family History Father CVD (cardiovascular disease) Mother Oral cancer Brother Myocardial infarction Social History Housing: Apartment Alcohol intake: current Alcohol intake frequency: holidays/special occasions only Patient Tobacco Use Status: Former Tobacco user e-Cigarette/Vaping Use: Never Used Advance Directives Date on File: 03/16/22 service: No 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al status: retired 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 Cognitive needs: No Hearing needs: No Vision needs: Yes Review of Systems Const Denies chills, Denies excessive sweating, Denies fever(s), Denies headache(s) and Denies night sweats Eyes Denies dry eyes, Denies irritation and Denies itchy eyes ENT Reports Normal hearing present, Denies headache(s), Denies nasal congestion, Denies nasal discharge, Denies post nasal drip and Denies sore throat Card Denies chest pain, Denies chest pain at rest, Denies chest pain with activity, Denies claudication, Denies leg edema, Denies orthopnea and Denies paroxysmal nocturnal dyspnea Resp Denies chest congestion, Denies cough, Denies excessive phlegm production, Denies pain on inspiration, Denies pain with cough, Denies stridor and Denies wheezing Musc Denies myalgias Neuro Reports Normal hearing present and Denies headache(s) Endo Denies excessive sweating Jovi/Lymph Denies lymphadenopathy Aller/Immun Denies itchy eyes and Denies wheezing Physical Exam Vital Signs: Last Vital Signs Pulse 59 01/10/25 11:11 BP 150/66 H 01/10/25 11:11 Pulse Ox 96 01/10/25 11:11 Oxygen Delivery Method Room Air 01/10/25 11:11 BMI result Body Mass Index 20.9 Const General: cooperative, healthy appearing, comfortable, no acute distress and alert Orientation/consciousness: patient oriented x3 Limitations: no limitations HEENT Head: Yes normal to inspection, Yes normocephalic and Yes atraumatic Ears: hearing grossly normal bilaterally and external ears normal Eyes General: appearance normal, both eyes and all related structures Eyelids: Yes eyelids normal Sclerae: sclerae normal EOM: EOMs intact bilaterally Neck Neck: Yes normal visual inspection and Yes no lymphadenopathy Lymphatic: no lymphadenopathy noted Chest Chest palpation & inspection: normal inspection of the chest Resp Effort & Inspection: normal respiratory effort, able to speak in complete sentences, no audible wheezes, no cough, no stridor, not tachypneic, no tripod positioning and no use of accessory muscles Auscultation: clear to auscultation bilaterally Cardio Jugular venous distension: no JVD Rate: regular rate Rhythm: regular rhythm Skin Other: warm, dry General skin exam: no rashes or lesions noted Neuro General: patient oriented x3 Cranial nerves: Yes Normal hearing present Cognition (Neuro): normal cognition Gait exam (Neuro): Normal gait present Extrem General: Yes normal to inspection, Yes capillary refill normal, Yes no clubbing, cyanosis or edema and Yes no pedal edema Psych Appearance: grossly normal and well kempt Speech and movement: Normal speech and movement present and Clear speech present Affect: normal affect Attitude: cooperative Thought process: Normal thought process present Thought content: Normal thought content present Insight: Good insight present (Psych) Judgement: Good judgement present (Psych) Results Reviewed Results Reviewed: [address] [address] [address] Scan Report Signed Patient: Kailey Neil MR#: [id number] : 1940 Acct:[id number] Age/Sex: 84 / F ADM Date: 08/21/24 Loc: HO.CT Attending Dr: Betty Don MD Ordering Physician: Betty Don MD Date of Service: 08/21/24 Procedure(s): CT chest wo IV con Accession Number(s): [id number] cc: Betty Don MD~ Report Number: [id number]: Total DLP = 111.00 mGy-cm EXAMINATION: CT CHEST WITHOUT IV CONTRAST INDICATION: R91.8 - Other nonspecific abnormal finding of lung field COMPARISON: Comparison is made with the prior examination dated 12/16/2023. TECHNIQUE: Helical CT scan of the chest was performed without intravenous contrast. Coronal and sagittal reformatted images were generated and reviewed. This CT exam was performed with one or more of the following dose reduction techniques: automated exposure control, adjustment of the mA and/or kV according to patient size, use of iterative reconstruction technique. DLP: 111 mGy-cm CHEST: THYROID: The thyroid is unremarkable. LUNGS: Again seen is a 10 x 8 mm nodule at the right lung apex (series 4, image 20). This is similar in size to prior studies dating back to 03/02/2023. There is a 6 mm nodule in the left upper lobe (series 4, image 35 without significant change. A 3 mm nodule in the right lower lobe (series 4, image 70. There is an additional ovoid lingular nodule without change (series 4, image 94). Scarring right upper and middle lobes and in the lingula. MEDIASTINUM: There is no mediastinal lymphadenopathy. KERRIE: Evaluation of the hilar regions is limited by lack of intravenous contrast material. CARDIOVASCULATURE: The heart is normal in size. There is no pericardial effusion. The thoracic aorta demonstrates atherosclerotic calcification, but is normal in caliber. DEGREE OF CORONARY CALCIFICATION: severe PLEURA: There is no pleural effusion. No pneumothorax. MAIN AIRWAYS: The mainstem bronchi and proximal branches are patent. AXILLA: There is no axillary lymphadenopathy. BONES AND SOFT TISSUES: Again seen is asymmetric density in the outer right breast. There is degenerative disc disease of the spine. UPPER ABDOMEN: The visualized portions of the liver, spleen, and adrenals have an unremarkable unenhanced appearance. CT/CT chest wo IV con IMPRESSION: 1. Stable bilateral pulmonary nodules as described. Continued follow-up is recommended. Assessment & Plan Assessment & Plan (1) Asthma: Code(s): J45.909 - Unspecified asthma, uncomplicated Category: Medical (2) Lung nodules: Code(s): R91.8 - Other nonspecific abnormal finding of lung field Category: Medical (3) Ground glass opacity present on imaging of lung: Code(s): R91.8 - Other nonspecific abnormal finding of lung field Category: Medical Plan Reviewed PFT which revealed combined moderate obstructive and borderline restrictive ventilatory defects with positive bronchodilator response. Decreased diffusion capacity suggests emphysema. At this time patient reports good control of respiratory symptoms on current regimen of Wixela, advised to continue. If symptoms change encouraged patient to increase to BID. Prior chest CT 08/2024 revealed a 10 x 8 mm nodule at the right lung apex, which is similar in size to prior studies dating back to 03/02/2023, however appears more dense on 08/2024 CT with associated ground-glass opacity of the right upper lobe. Will repeat in 6 months which would be February 2025. All questions were answered and patient is in agreement of plan. Will follow up to review results or sooner if needed. Orders: Orders CT chest wo IV con 2 Months R91.8 - Other nonspecific abnormal finding of lung field Coding Level of Care Code Est Pt Level 4 (76050) Diagnoses Asthma J45.909 Lung nodules R91.8 Ground glass opacity present on imaging of lung R91.8
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
--- OUTSIDE RECORDS SUMMARY | 2025-01-10 14:15 | XMS_ITS | Patient Health Record ---
Author Organization [facility] Address [address] [place] [address] Care Team Providers Care Polystyrene Bead Molder Name Role Phone DEMETRICE GAN D.O. Primary Care Provider Ritika Brown Unavailable [phone] Reason For Referral No Information Medications Medication [...] W/U Status Risk Notes Problem Menopausal symptom (52878705) Symptomatic menopausal or female climacteric states (627.2) Active confirmed Major Problem Osteoporosis (15713771) Unspecified osteoporosis (733.00) Active confirmed Diag Problem Gynecological examination normal (317149210231580) Routine gynecological examination (V72.31) Active confirmed Diag Problem Screening for malignant neoplasm of cervix (354491058) Screening for malignant neoplasm of the cervix (V76.2) Active confirmed Diag Problem Screening for malignant neoplasm of colon (936292225) Special screening for malignant neoplasms, colon (V76.51) Active confirmed Major Plan Of Treatment Pending Test Test Name Order Date MAMMOGRAM, SCREENING 10/10/2015 Insurance Providers Payer Name Payer Address Payer Phone Subscriber Number Group Number Insured Name Patient Relationship to Insured Coverage Start Date Coverage End Date MEDICARE [address] [place], [place] [id number] YUE LINK Self - patient is the insured [facility] [address] [address] [place] [address] [id number] YUE LINK Self - patient is the [...]
== END 2025-01-10 12:06 | disposition home or self-care (01) ==
LOC: HO.HPSW 11:06
PROVIDERS: PCP Internal Medicine; Visit Provider Nurse Practitioner Family
DX: J45.909 Unspecified asthma, uncomplicated (principal); R91.8 Other nonspecific abnormal finding of lung field
CPT/HCPCS: 99214

== ENCOUNTER → 2025-01-10 11:05 | Outpatient (BNVA) | payer MEDICARE, SELFPAY | PROVIDERS: PCP Internal Medicine; Visit Provider Nurse Practitioner Family | DX: J45.909 Unspecified asthma, uncomplicated (principal); R91.8 Other nonspecific abnormal finding of lung field; Z87.891 Personal history of nicotine dependence; I10 Essential (primary) hypertension; E78.5 Hyperlipidemia, unspecified | CPT/HCPCS: 99212 ==

== ENCOUNTER 2025-01-15 12:43 | Outpatient (AMB) | payer MEDICARE, SELFPAY ==
--- NOTE | 2025-01-15 12:47 | MHC.PC.OV ---
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: No Accompanied by: Self / Same As Patient Allergies cat dander (CATS) Allergy (Severe, Verified 01/10/25 11:13) DIFFICULTY BREATHING gluten Allergy (Severe, Uncoded 01/10/25 11:13) unk Medication List - Last Reconciled 01/15/25 by Betty Don MD albuterol sulfate 90 mcg/actuation (ProAir HFA) 1 inh inhalation QID PRN albuterol sulfate 90 mcg/actuation 2 puffs inhalation Q6H PRN amlodipine 2.5 mg PO DAILY aspirin 81 mg PO DAILY atorvastatin 20 mg PO BEDTIME calcium carbonate-vitamin D3 600 mg-5 mcg (200 unit) 1 tab PO DAILY cholecalciferol (vitamin D3) 25 mcg PO DAILY fluticasone propion-salmeterol 100-50 mcg/dose (Advair Diskus) 1 inh inhalation BID inhalational spacing device (BreatheRite MDI Spacer) As directed melatonin 5 mg PO BEDTIME PRN multivitamin 1 tab PO QAM Tobacco use date assessed: 09/22/24 Fall risk assessment: No Falls in past year Last assessed Fall Risk: 01/15/25 Dental Screening Dental Screen Date: 01/15/25 Did you have a dental visit in the last 12 months?: Yes Did you have a dental problem in the last 6 months where you did not have access to dental care?: No Was dental information given to patient?: Patient has dentist HPI 6 months f/up HPI Details Patient presents for the follow-up hypertension hyperlipidemia chronic asthma/COPD stable on current medications. Patient has been physically active playing golf 3 times a week. She had negative nuclear stress test in November and repeated echocardiogram in August showed moderate MR unchanged from last year. Patient is established with Cardiology. Patient follows up with pulmonology for multiple lung nodules unchanged since November 2023. PFTs showed moderate obstructive and borderline restrictive ventilatory defect lung with moderate decreased diffusing capacity. Patient has been using Advair regularly. [facility] Medical History (Updated 09/29/25 @ 13:34 by Betty Don MD) Lung nodules Breast lump on right side at 5 o'clock position COPD (chronic obstructive pulmonary disease) Vitamin D deficiency Non-rheumatic mitral regurgitation Hyperlipidemia Annual physical exam Prolapse of female pelvic organs HTN (hypertension) Osteoporosis Celiac sprue Asthma Surgical History Hx of cataract extraction H/O colonoscopy Family History Father CVD (cardiovascular disease) Mother Oral cancer Brother Myocardial infarction Social History Housing: Apartment Alcohol intake: current Alcohol intake frequency: holidays/special occasions only Patient Tobacco Use Status: Former Tobacco user e-Cigarette/Vaping Use: Never Used Advance Directives Date on File: 03/16/22 service: No 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al status: retired 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 1. Little interest or pleasure in doing things: not at all 2. Feeling down, depressed, or hopeless: not at all 3. Trouble falling or staying asleep, or sleeping too much: not at all 4. Feeling tired or having little energy: not at all 5. Poor appetite or overeating: not at all 6. Feeling bad about yourself - or that you are a failure or have let yourself or your family down: not at all 7. Trouble concentrating on things, such as reading the newspaper or watching television: not at all 8. Moving or speaking so slowly that other people could have noticed. Or the opposite - being so fidgety or restless that you have been moving around a lot more than usual: not at all 9. Thoughts that you would be better off or of hurting yourself in some way: not at all Total score: 0 Depression Screening Interpretation: Negative Depression Screening Done: Yes 60946 - PHQ-9 Billing: Yes Source: Developed by Drs. Isreal Ibrahim, Tomeka Barber, Dominick Grullon and colleagues, with an educational courtney from [employer]. Thrive Questionnaire Date Thrive assessed: 07/10/24 I am a: Patient What is your living situation today?: I have a steady place to live Within the past 12 months, did the food you bought not last and you didn't have the money to get more?: Never true Within the past 12 months, did you worry whether your food would run out before you got money to buy more?: Never true Do you have trouble paying for medicines?: No Do you have trouble getting transportation to medical appointments?: No Do you have trouble paying your heating and electricity bill?: No Do you have trouble taking care of your child, family member or friend?: No Do you have trouble with day-to-day activities such as bathing, preparing meals, shopping, managing finances, etc.?: No Are you currently unemployed and looking for a job?: No Are you interested in more education?: No Please select the resources that you would like help with: None Currently or been in a relationship where the following occur: No concerns reported THRIVE Score: 0 NIKITA-7 AMB Questionnaire NIKITA-7 Date NIKITA - 7 assessed: 01/15/25 Feeling nervous, anxious, or on edge: 0 = Not at all Not being able to stop or control worryin = Not at all Worrying too much about different things: 0 = Not at all Trouble relaxin = Not at all Being so restless that it is hard to sit still: 0 = Not at all Becoming easily annoyed or irritable: 0 = Not at all Feeling afraid as if something awful might happen: 0 = Not at all Total NIKITA-7 score (0-4 normal; 5-9 mild; 10-14 moderate; 15-21 severe): 0 Source: Developed by Drs. Isreal Ibraihm, Tomeka Barber, Dominick Grullon and colleagues, with an educational courtney from [employer]. NIKITA-7 Assessment Billing NIKITA-7 Assessment Tool: NIKITA-7 Assessment 53715 Review of Systems Const All systems reviewed & are unremarkable except as noted in HPI and below Eyes Reports no additional complaints ENT Reports no additional complaints Card Reports no additional complaints Resp Reports no additional complaints GI Reports no additional complaints Reports no additional complaints Physical exam (Primary Care) Vital Signs: Last Vital Signs Temp 97.8 F 01/15/25 12:48 Pulse 60 01/15/25 12:48 Resp 14 01/15/25 12:48 BP 146/58 H 01/15/25 12:48 Pulse Ox 97 01/15/25 12:48 Oxygen Delivery Method Room Air 01/15/25 12:48 BMI result Body Mass Index 20.9 Tobacco/Smoking Status: Tobacco use Status Tobacco use date assessed 09/22/24 01/15/25 12:54 Patient Tobacco Use Status Former Tobacco user 01/15/25 12:54 e-Cigarette/Vaping Use Never Used 01/15/25 12:54 PHQ-9: PHQ-9 Score PHQ-9: Total score 0 01/15/25 12:54 Depression Screening Interpretation: Negative Thrive Assessment: Date of Thrive Assessment Date Thrive assessed 07/10/24 01/15/25 12:54 Currently or been in a relationship where the following occur: No concerns reported Const General: no acute distress HENMT Head: Yes normal to inspection Throat: Yes posterior oropharynx normal Eyes General: appearance normal, both eyes and all related structures Resp Effort & Inspection: normal respiratory effort Auscultation: diminished lung sounds Cardio Rhythm: regular rhythm Heart sounds: S1 normal heart sound present and S2 normal heart sound present GI Inspection: Yes normal to inspection Palpation (GI): Soft to palpation Percussion: Yes normal to percussion Auscultation: normal bowel sounds Coding Level of Care Code Est Pt Level 4 (68775) Diagnoses Osteoporosis M81.0 Non-rheumatic mitral regurgitation I34.0 COPD (chronic obstructive pulmonary disease) J44.9 Additional Codes NIKITA-7 Assessment Billing - NIKITA-7 Assessment Tool: NIKITA-7 Assessment 45870 ([id number]) PHQ-9 - 05966 - PHQ-9 Billing: Yes ([id number]) Assessment & Plan Assessment & Plan (1) Osteoporosis: Comment: DEXA: 07/2017, took Fosomax for >5 year 2009, started Prolia 11/2019, DEXA 08/08 osteopenia , last Prolia 02/07, recheck DEXA 08/2023 stable, Code(s): M81.0 - Age-related osteoporosis without current pathological fracture Category: Medical Plan: Continue vitamin-D and weight-bearing exercises (2) Non-rheumatic mitral regurgitation: Comment: moderate MR, unchanged from 2023, Echo 08/2024, f/u [facility] cardiology Code(s): I34.0 - Nonrheumatic mitral (valve) insufficiency Category: Medical Plan: Follow-up with cardiology annually (3) COPD (chronic obstructive pulmonary disease): Comment: on CXR, 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 PFTs 12/2024 moderate obstructive borderline restrictive ventilatory defect, positive bronchodilator response, decreased diffusing capacity 12/2024, continue Advair Code(s): J44.9 - Chronic obstructive pulmonary disease, unspecified Category: Medical Plan: Continue Advair and albuterol PRN repeat CT to follow-up on lung nodules Orders: Orders Comprehensive [place]. Panel Fast 3 Months E55.9 - Vitamin D deficiency, unspecified, E78.5 - Hyperlipidemia, unspecified, I10 - Essential (primary) hypertension Lipid Panel 3 Months E55.9 - Vitamin D deficiency, unspecified, E78.5 - Hyperlipidemia, unspecified, I10 - Essential (primary) hypertension Complete Blood Count Auto Diff 3 Months E55.9 - Vitamin D deficiency, unspecified, E78.5 - Hyperlipidemia, unspecified, I10 - Essential (primary) hypertension Vitamin D 25-OH Total 3 Months E55.9 - Vitamin D deficiency, unspecified, E78.5 - Hyperlipidemia, unspecified, I10 - Essential (primary) hypertension Hemoglobin A1c 3 Months E55.9 - Vitamin D deficiency, unspecified, E78.5 - Hyperlipidemia, unspecified, I10 - Essential (primary) hypertension
[2025-01-15 12:48] VITALS: BP 146/58; PULSE 60; RESP 14; TEMP 36.6; O2SAT 97; BMI 20.9
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
--- OUTSIDE RECORDS SUMMARY | 2025-01-15 13:50 | XMS_ITS | Patient Health Record ---
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 Primary Care Provider Ritika Brown Unavailable [phone] Reason For Referral No Information Medications Medication [...] W/U Status Risk Notes Problem Menopausal symptom (91929069) Symptomatic menopausal or female climacteric states (627.2) Active confirmed Major Problem Osteoporosis (84225953) Unspecified osteoporosis (733.00) Active confirmed Diag Problem Gynecological examination normal (104331663611065) Routine gynecological examination (V72.31) Active confirmed Diag Problem Screening for malignant neoplasm of cervix (085737764) Screening for malignant neoplasm of the cervix (V76.2) Active confirmed Diag Problem Screening for malignant neoplasm of colon (117624507) Special screening for malignant neoplasms, colon (V76.51) Active confirmed Major Plan Of Treatment Pending Test Test Name Order Date MAMMOGRAM, SCREENING 10/10/2015 Insurance Providers Payer Name Payer Address Payer Phone Subscriber Number Group Number Insured Name Patient Relationship to Insured Coverage Start Date Coverage End Date MEDICARE [address] [place], [place] [id number] YUE LINK Self - patient is the insured [facility] [address] [address] [place] [address] [id number] YUE LINK Self - patient is the [...]
== END 2025-01-15 13:44 | disposition home or self-care (01) ==
LOC: HO.HMCC 12:44
PROVIDERS: PCP Internal Medicine; Visit Provider Internal Medicine
DX: M81.0 Age-related osteoporosis without current pathological fracture (principal); I34.0 Nonrheumatic mitral (valve) insufficiency; J44.9 Chronic obstructive pulmonary disease, unspecified

== ENCOUNTER → 2025-01-15 12:43 | Outpatient (BNVA) | payer MEDICARE, SELFPAY | PROVIDERS: PCP Internal Medicine; Visit Provider Internal Medicine | DX: M81.0 Age-related osteoporosis without current pathological fracture (principal); I34.0 Nonrheumatic mitral (valve) insufficiency; J44.9 Chronic obstructive pulmonary disease, unspecified; Z87.891 Personal history of nicotine dependence | CPT/HCPCS: 96127; 99212 ==

== ENCOUNTER 2025-03-03 10:16 | Outpatient (REF) | payer MEDICARE, SELFPAY ==
--- NOTE | ~2025-03-03 | CT_ITS ---
CLINICAL HISTORY: R91.8 - Other nonspecific abnormal finding of lung field CT chest without contrast Comparison: CT/SR - CT CHEST WO IV CON - 08/21/24 07:30 EDT Findings: There are mild coronary artery calcifications. There is coarse calcification of the mitral valve. The visualized thyroid and mediastinum are unremarkable. Previously seen and previously described pulmonary nodules are unchanged. There is a new 4 mm nodule seen in the right lower lobe on image number 305 of series 2. No other new nodules are noted. The upper abdomen is unremarkable. There is ankylosing spondylitis. There is chronic deformity of the right humeral head. IMPRESSION: 1. New 4 mm nodule in the right lower lobe. The examination is otherwise unchanged. Please obtain a six-month follow-up examination to demonstrate stability. This document has been electronically signed by: Kelton Mckeon MD on 03/05/2025 11:24:02
== END 2025-03-03 10:17 | disposition home or self-care (01) ==
LOC: HO.CT 10:16
PROVIDERS: PCP Internal Medicine; Visit Provider Nurse Practitioner Family
DX: R91.8 Other nonspecific abnormal finding of lung field (principal)
CPT/HCPCS: 71250

== ENCOUNTER → 2025-03-03 10:19 | Outpatient (BNV) | payer MEDICARE, SELFPAY | PROVIDERS: PCP Internal Medicine; Visit Provider Radiology Diagnostic Radiology | DX: R91.1 Solitary pulmonary nodule (principal) | CPT/HCPCS: 71250 ==

== ENCOUNTER 2025-03-23 10:27 | Outpatient (AMB) | payer MEDICARE, SELFPAY ==
[2025-03-23 10:30] VITALS: BP 136/54; PULSE 58; O2SAT 97; BMI 20.4
--- NOTE | 2025-03-23 10:30 | MHC.OFFVIS ---
Vital Signs 03/23/25 10:30 Height 5 ft 4 in Weight 119 lb BMI 20.4 BP 136/54 L Blood Pressure Location Rt brachial Position Sitting Pulse 58 Pulse Source Pulse Oximeter Pulse Oximetry (%) 97 Oxygen Delivery Method Room Air Intake Visit Reasons: asthma Allergies cat dander (CATS) Allergy (Severe, Verified 03/23/25 10:32) DIFFICULTY BREATHING gluten Allergy (Severe, Uncoded 03/23/25 10:32) unk HPI HPI asthma: Details: Kailey is a pleasant 84 year old female, former minimal smoker, quit 50 years ago, with underlying asthma COPD overlap syndrome, HTN, HLD, and CAD. She was initially referred by PCP for pulmonary evaluation after having bronchitis twice this past Spring. 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 She continues to report good control of respiratory symptoms using Wixela 100-50 mcg QD, occasionally reports dyspnea on exertion however activity is not limited by respiratory symptoms. She denies cough, wheezing or chest tightness. She denies any symptoms suggestive of an infectious process. She is also being followed for pulmonary nodules, which were an incidental finding, chest CT 08/2024 revealed a 10 x 8 mm nodule at the right lung apex, which is similar in size to prior studies dating back to 03/02/2023, however appears more dense on 08/2024 CT with associated ground-glass opacity of the right upper lobe. Today she presents to review [address] results. She denies any visits to urgent care hospitalizations related to respiratory distress since last visit. [facility] Medical History (Updated 03/26/25 @ 14:21 by Dione Mar NP) Lung nodules Breast lump on right side at 5 o'clock position COPD (chronic obstructive pulmonary disease) Vitamin D deficiency Non-rheumatic mitral regurgitation Hyperlipidemia Annual physical exam Prolapse of female pelvic organs HTN (hypertension) Osteoporosis Celiac sprue Asthma Surgical History Hx of cataract extraction H/O colonoscopy Family History Father CVD (cardiovascular disease) Mother Oral cancer Brother Myocardial infarction Social History Housing: Apartment Alcohol intake: current Alcohol intake frequency: holidays/special occasions only Patient Tobacco Use Status: Former Tobacco user e-Cigarette/Vaping Use: Never Used Advance Directives Date on File: 03/16/22 service: No 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al status: retired 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 Cognitive needs: No Hearing needs: No Vision needs: Yes Review of Systems Const Denies chills, Denies excessive sweating, Denies fever(s), Denies headache(s) and Denies night sweats Eyes Denies dry eyes, Denies irritation and Denies itchy eyes ENT Reports Normal hearing present and Denies headache(s) Card Denies chest pain, Denies chest pain at rest, Denies chest pain with activity, Denies claudication, Denies leg edema, Denies orthopnea and Denies paroxysmal nocturnal dyspnea Resp Denies chest congestion, Denies cough, Denies excessive phlegm production, Denies pain on inspiration, Denies pain with cough, Denies stridor and Denies wheezing Musc Denies myalgias Neuro Reports Normal hearing present and Denies headache(s) Endo Denies excessive sweating Jovi/Lymph Denies lymphadenopathy Aller/Immun Denies itchy eyes and Denies wheezing Physical Exam Vital Signs: Last Vital Signs Pulse 58 03/23/25 10:30 BP 136/54 L 03/23/25 10:30 Pulse Ox 97 03/23/25 10:30 Oxygen Delivery Method Room Air 03/23/25 10:30 BMI result Body Mass Index 20.4 Const General: cooperative, healthy appearing, comfortable, no acute distress and alert Orientation/consciousness: patient oriented x3 Limitations: no limitations HEENT Head: Yes normal to inspection, Yes normocephalic and Yes atraumatic Ears: hearing grossly normal bilaterally and external ears normal Eyes General: appearance normal, both eyes and all related structures Eyelids: Yes eyelids normal Sclerae: sclerae normal EOM: EOMs intact bilaterally Neck Neck: Yes normal visual inspection and Yes no lymphadenopathy Lymphatic: no lymphadenopathy noted Chest Chest palpation & inspection: normal inspection of the chest Resp Effort & Inspection: normal respiratory effort, able to speak in complete sentences, no audible wheezes, no cough, no stridor, not tachypneic, no tripod positioning and no use of accessory muscles Auscultation: wheezes Cardio Jugular venous distension: no JVD Rate: regular rate Rhythm: regular rhythm Skin Other: warm, dry General skin exam: no rashes or lesions noted Neuro General: patient oriented x3 Cranial nerves: Yes Normal hearing present Cognition (Neuro): normal cognition Gait exam (Neuro): Normal gait present Extrem General: Yes normal to inspection, Yes capillary refill normal, Yes no clubbing, cyanosis or edema and Yes no pedal edema Psych Appearance: grossly normal and well kempt Speech and movement: Normal speech and movement present and Clear speech present Affect: normal affect Attitude: cooperative Thought process: Normal thought process present Thought content: Normal thought content present Insight: Good insight present (Psych) Judgement: Good judgement present (Psych) Results Reviewed Results Reviewed: [address] [address] [address] Scan Report Signed Patient: Kailey Neil MR#: [id number] : 1940 Acct:[id number] Age/Sex: 84 / F ADM Date: 03/03/25 Loc: HO.CT Attending Dr: Dione Mar NP Ordering Physician: Dione Mar NP Date of Service: 03/03/25 Procedure(s): CT chest wo IV con Accession Number(s): [id number] cc: Betty Don MD; Dione Mar NP~ Report Number: [id number]: Total DLP = 182.00 mGy-cm Reason for Exam: R91.8 - Other nonspecific abnormal finding of lung field CLINICAL HISTORY: R91.8 - Other nonspecific abnormal finding of lung field CT chest without contrast Comparison: CT/SR - CT CHEST WO IV CON - 08/21/24 07:30 EDT Findings: There are mild coronary artery calcifications. There is coarse calcification of the mitral valve. The visualized thyroid and mediastinum are unremarkable. Previously seen and previously described pulmonary nodules are unchanged. There is a new 4 mm nodule seen in the right lower lobe on image number 305 of series 2. No other new nodules are noted. The upper abdomen is unremarkable. There is ankylosing spondylitis. There is chronic deformity of the right humeral head. IMPRESSION: 1. New 4 mm nodule in the right lower lobe. The examination is otherwise unchanged. Please obtain a six-month follow-up examination to demonstrate stability. This document has been electronically signed by: Kelton Mckeon MD on 03/05/2025 11:24:02 Dictated By: Kelton Mckeon MD Signed By: <Electronically signed by Kelton Mckeon MD in OV> 03/05/255 DD/ 23 TD/TT: 03/05/251123 Community Fundraiser: Assessment & Plan Assessment & Plan (1) Asthma-COPD overlap syndrome: Code(s): J44.89 - Other specified chronic obstructive pulmonary disease Category: Medical (2) Lung nodules: Code(s): R91.8 - Other nonspecific abnormal finding of lung field Category: Medical (3) Ground glass opacity present on imaging of lung: Code(s): R91.8 - Other nonspecific abnormal finding of lung field Category: Medical Plan At this time patient reports good control of respiratory symptoms on current regimen of Wixela, advised to continue. Wheezing appreciated on exam today, will send in course of prednisone. Side effects reviewed. If wheezing persists she is aware to call office. Reviewed chest CT with Dr. Garcia, will repeat in 6 months given waxing and waning nodules and inflammatory changes, in addition to new 4 mm pulmonary nodule. All questions were answered and patient is in agreement of plan. Will follow up to review results or sooner if needed. Medications: New prednisone 40 mg (2 x 20 mg) PO DAILY 10 tabs 0RF Coding Level of Care Code Est Pt Level 4 (92237) Diagnoses Asthma-COPD overlap syndrome J44.89 Lung nodules R91.8 Ground glass opacity present on imaging of lung R91.8
== END 2025-03-23 10:50 | disposition home or self-care (01) ==
LOC: HO.HPSW 10:28
PROVIDERS: PCP Internal Medicine; Visit Provider Nurse Practitioner Family
DX: J44.89 Other specified chronic obstructive pulmonary disease (principal); R91.8 Other nonspecific abnormal finding of lung field
CPT/HCPCS: 99214

== ENCOUNTER → 2025-03-23 10:27 | Outpatient (BNVA) | payer MEDICARE, SELFPAY | PROVIDERS: PCP Internal Medicine; Visit Provider Nurse Practitioner Family | DX: J44.89 Other specified chronic obstructive pulmonary disease (principal); R91.8 Other nonspecific abnormal finding of lung field | CPT/HCPCS: 99212 ==